=== PATIENT | male | born 1995 | race Caucasian/White ===

== ENCOUNTER 2025-01-19 07:15 | Emergency (ER) | payer OTHER, SELFPAY ==
--- NOTE | ~2025-01-19 | XR_ITS ---
Clinical Indication: Chest pain PA and lateral views of the chest: Comparison: None Findings: The lungs are clear, without evidence of focal consolidation or pleural effusion. Cardiome diastinal silhouette is within normal limits. Bones and soft tissues are unremarkable. Impression: Normal chest. Reviewed, dictated and finalized at location . Impression: Normal chest.
--- NOTE | 2025-01-19 07:18 | ECG_ITS ---
Test Date: 2025-01-19 07:27:45 Measurements Intervals [place] Rate: 65 P: 44 NV: 156 QRS: -31 QRSD: 115 T: -9 QT: 379 QTc: 396 Interpretive Statements SINUS RHYTHM LEFTWARD AXIS INCOMPLETE RIGHT BUNDLE BRANCH BLOCK BORDERLINE ECG No previous ECG available for comparison Electronically Signed On 01-19-2025 07:56:01 CDT by Toi Yancey M.D.
[2025-01-19 07:21] VITALS: BP 161/81; PULSE 73; RESP 20; TEMP 36.6; O2SAT 100
[2025-01-19] MEDS: ASPIRIN 81 MG CHEWABLE TABLET 324 MG PO (07:40)
[2025-01-19 07:44] LABS: Hematocrit 45.3 % (42.0-52.0); Hemoglobin 15.5 g/dL (14.0-18.0); Immature Granulocyte Percent A 0.2 % (0-0.5); Lymphocytes Absolute Auto 1.89 K/mm3 (0.9-3.2); Mean Corpuscular HGB Conc 34.2 g/dl (32-36); Mean Corpuscular Hemoglobin 30.8 pg (26-34); Mean Corpuscular Volume 89.9 fl (80-100); Nucleated Red Blood Cells Absolute Auto 0.000 K/mm3 (0.0-0.012); Nucleated Red Blood Cells Perc 0.0 % (0.0-0.2); Platelet Count Result 301 k/mm3 (150-375); Red Blood Count 5.04 M/mm3 (4.6-6.20); White Blood Count 5.5 K/mm3 (4.5-10.0)
--- OUTSIDE RECORDS SUMMARY | 2025-01-19 07:45 | XMS_ITS | Encounter Summary ---
Author Name [facility] [place] Organization [facility] [place] Address [address] [place] [address] Care Team Providers Care Aircraft Engine Dismantler Name Role Phone GREGORY HARTLEY Primary Care Provider Unavailabl MUKESH Lieberman Primary Care Provider Unavailab le Selected Encounter This section includes the information on record at [place] for the Encounter. Date/Time Encounter Type Encounter Description Reason Provider Source Jul 08, 2024 03:30 PM OFFICE O/P EST MOD 30 MIN PRIMARY CARE/MEDICINE ICD-10-CM Z72.0 Tobacco use JAKE,GLADYS S IHE Encounter Template Text not used by [place] Assessments - Encounter Diagnoses This section includes the primary and secondary diagnoses documented for the Encounter. Date/Time Primary/Secondary Diagnosis Diagnosis Name Provider Source Jul 08, 2024 04:33 PM PRIMARY Tobacco use JAKE,GLADYS S [facility] Jul 08, 2024 04:33 PM SECONDARY Cervicalgia JAKE,GLADYS S [facility] Jul 08, 2024 04:33 PM SECONDARY Chronic pain syndrome JAKE,GLADYS S [facility] Jul 08, 2024 04:33 PM SECONDARY Generalized anxiety disorder JAKE,GLADYS S [facility] Jul 08, 2024 04:33 PM SECONDARY Lumbago with sciatica, unspecified side JAKE,GLADYS S [facility] Jul 08, 2024 04:33 PM SECONDARY Morbid (severe) obesity due to excess calories GLADYS JOSEPH [facility] Jul 08, 2024 04:33 PM SECONDARY Obstructive sleep apnea (adult) (pediatric) GLADYS JOSEPH [facility] Jul 08, 2024 04:33 PM SECONDARY Pain in unspecified shoulder GLADYS JOSEPH [facility] Jul 08, 2024 04:33 PM SECONDARY Panic disorder [episodic paroxysmal anxiety] GLADYS JOSEPH [facility] Plan of Treatment: Future Appointments (+ 6 months) and Future Tests (+/- 45 days) The Plan of Treatment section includes future care activities for the [facility] [place] [facility] This section includes future appointments and future orders which are active, pending or scheduled. Future Appointments This section includes appointments that were scheduled to occur 6 months from the date of the Encounter, up to a maximum of 20 appointments. The data comes from all [facility] facilities. Appointment Date/Time Appointment Type Appointme nt Facility Name Jul 19, 2024 10:00 AM AMBULATORY - PSYCHIATRY [facility] Jul 20, 2024 08:00 AM AMBULATORY - PSYCHIATRY [facility] Aug 03, 2024 07:30 AM AMBULATORY - REHAB MEDICIN E [facility] Aug 13, 2024 09:30 AM AMBULATORY - REHAB MEDICIN E [facility] Aug 16, 2024 01:30 PM AMBULATORY - MEDICINE [facility] Sep 07, 2024 01:30 PM AMBULATORY - PSYCHIATRY [facility] Sep 09, 2024 03:00 PM AMBULATORY - REHAB MEDICIN E [facility] Sep 10, 2024 12:00 PM AMBULATORY - NONE [facility] November 26, 2024 09:30 AM AMBULATORY - PSYCHIATRY [facility] Vital Signs: All taken on the encounter date This section contains inpatient and outpatient Vital Signs collected on the date of the Encounter. Date/Time Temperature Pulse Blood Pressure Respiratory Rate SP02 Pain Height Weight Body Mass Index Source Jul 08, 2024 09:52 AM 98.1 73 133/82 16 99 2 229.7 37 [facility] Social History: Smoking Status (Most current) and Tobacco Use (All prior to encounter date) This section includes the most current, and the historical, smoking and tobacco- related health factors from the [place] facility where the Encounter took place. Current Smoking Status This section includes the most current smoking, or tobacco-related health factor, from the [place] facility where the Encounter took place. Date/Time Current Smoking Status Comment Facil ity May 30, 2022 01:30 PM VA-TOBACCO FORMER USER [facility] Tobacco Use History This section includes a history of the smoking, or tobacco-related health factors, that were collected on or before the date of the Encounter. The data comes from the [place] facility where the Encounter took place. Date/Time Smoking Status/Tobacco Use Comment F acility May 30, 2022 01:30 PM VA-TOBACCO QUIT 1 TO < 5 YRS [facility] Aug 20, 2019 09:00 AM VA-TOBACCO USE 1 TO < 5 YEARS [facility] Aug 20, 2019 09:00 AM VA-TOBACCO USE ADVICE [facility] Aug 20, 2019 09:00 AM VA-TOBACCO USE LAW REPORTER NO [facility] Aug 20, 2019 09:00 AM VA-TOBACCO USE MED NO [facility] Aug 20, 2019 09:00 AM VA-TOBACCO USE WI 30 MIN OF WAKEUP [facility] Aug 20, 2019 09:00 AM VA-TOBACCO USER EVERY DAY [facility] Radiology Reports: +/- 30 days of the encounter Radiology Reports For cases when an order for radiology services may have been completed prior to the date of the Encounter, the report list includes the Radiology Reports that were completed up to 30 days before dateof the Encounter. For cases when an order for radiology services may have been completed after the date of the Encounter, the report list also includes the Radiology Reports that were completed up to30 days after date of the Encounter. The data comes from all [place] treatment facilities. Date/Time Radiology Report Provider Source Jul 08, 2024 10:40 AM SPINE CERVICAL MIN 4 OR 5 VIEWS: REVA WISE GABKeysha [id number] -1995 M Exm Date: JUL 08, 2024@10:40 Req Phys: GLADYS JOSEPH Pat Loc: [facility] PCP (Req'g Loc) Img Loc: [facility] Service: Unknown [address] [id number] (Case [id number] COMPLETE) SPINE CERVICAL MIN 4 OR 5 VIEWS (RAD Detailed) CPT:30000 Reason for Study: cervicalgia Clinical History: Report Status: Verified Date Reported: JUL 08, 2024 Date Verified: JUL 08, 2024 Tax Analyst E-Sig:/ES/POPEYE MEREDITH Report: INDICATION: cervicalgia COMPARISON: None TECHNIQUE: Cervical spine 3 views Impression: C6 and 7 are not well evaluated on the lateral projections due to overlying structures. The lateral masses of C1 and C2 are grossly aligned. No abnormal thickening of the prevertebral soft tissues. Visualized vertebral body heights and intervertebral disc spaces are normal. Primary Interpreting Staff: POPEYE MEREDITH, RADIOLOGIST (Tax Analyst) /POPEYE PARMAR [facility] Jul 08, 2024 10:40 AM SPINE LUMBOSACRAL 2 OR 3 VIEWS: REVA WISE [id number] -1995 M Exm Date: JUL 08, 2024@10:40 Req Phys: GLADYS JOSEPH Pat Loc: [facility] PCP (Req'g Loc) Img Loc: [facility] Service: Unknown [address] [id number] (Case [id number] COMPLETE) SPINE LUMBOSACRAL 2 OR 3 VIEWS (RAD Detailed) CPT:89723 Reason for Study: lumbago Clinical History: Report Status: Verified Date Reported: JUL 08, 2024 Date Verified: JUL 08, 2024 Tax Analyst E-Sig:/ES/POPEYE MEREDITH Report: INDICATION: lumbago COMPARISON: TECHNIQUE: Lumbar spine 3 views Impression: 5 nonrib-bearing bearing vertebral bodies. Lowest fully formed intervertebral disc space is designated as L5-S1. Normal vertebral body heights. Mild to moderate disc space narrowing at the T12/L1 and to lesser extent at the L5-S1. Mild lower lumbar facet arthrosis. No traumatic subluxation of the posterior elements. Primary Interpreting Staff: POPEYE MEREDITH, RADIOLOGIST (Tax Analyst) /POPEYE PARMAR [facility] Jul 08, 2024 10:40 AM SHOULDER,LEFT,2 OR MORE [facility]IEWS: [facility] [id number] -1995 M Exm Date: JUL 08, 2024@10:40 Req Phys: GLADYS JOSEPH S Pat Loc: [facility] PCP (Req'g Loc) Img Loc: [facility] Service: [address] [id number] (Case [id number] COMPLETE) SHOULDER,LEFT,2 OR MORE VIEWS (RAD Detailed) CPT:43490 Reason for Study: bilateral shoulder pain Clinical History: Report Status: Verified Date Reported: JUL 08, 2024 Date Verified: JUL 08, 2024 Tax Analyst E-Sig:/ES/POPEYE MEREDITH Report: , [id number] INDICATION: bilateral shoulder pain COMPARISON: None TECHNIQUE: Bilateral shoulder multiple views Impression: No acute displaced fracture. No significant malalignment. Primary Interpreting Staff: POPEYE MEREDITH RADIOLOGIST (Tax Analyst) /POPEYE PARMAR [facility] Jul 08, 2024 10:40 AM SHOULDER,RIGHT,2 O R MORE VIEWS: [facility] [id number] -1995 M Exm Date: JUL 08, 2024@10:40 Req Phys: GLADYS JOSEPH S Pat Loc: [facility]4 PCP (Req'g Loc) Img Loc: - RADIOLOGY Service: [address] [id number] (Case [id number] COMPLETE) SHOULDER,RIGHT,2 OR MORE VIEWS (RAD Detailed) CPT:04832 Proc Modifiers : RIGHT Reason for Study: bilateral shoulder pain Clinical History: Report Status: Verified Date Reported: JUL 08, 2024 Date Verified: JUL 08, 2024 Tax Analyst E-Sig:/ES/POPEYE MEREDITH Report: , [id number] INDICATION: bilateral shoulder pain COMPARISON: None TECHNIQUE: Bilateral shoulder multiple views Impression: No acute displaced fracture. No significant malalignment. Primary Interpreting Staff: POPEYE MEREDITH, RADIOLOGIST (Tax Analyst) /POPEYE PARMAR [facility] Encounter Notes: All associated encounter notes This section contains the clinical notes associated to the Encounter. Date/Time Encounter Note(s) Provider Source Jul 20, 2024 08:39 AM PHYSICIAN LETTERS: LOCAL TITLE: TEST RESULT GENERAL LETTER [facility] STANDARD TITLE: PHYSICIAN LETTERS DATE OF NOTE: JUL 20, 2024@08:39 ENTRY DATE: JUL 20, 2024@08:39:35 AUTHOR: GLADYS JSOEPH COSIGNER: URGENCY: STATUS: COMPLETED [facility] [address] [place] [address] JUL 20, 2024 REVA WISE [address] [place], [place] [address] Dear Reva Wise, I would like to update you on your recent test results. OTHER TEST RESULTS RADIOLOGY (NON-INVASIVE TEST RESULTS): xrays Right shoulder Impression: No acute displaced fracture. No significant malalignment. Left shoulder Impression: No acute displaced fracture. No significant malalignment. Lumbar (lower) spine Impression: 5 nonrib-bearing bearing vertebral bodies. Lowest fully formed intervertebral disc space is designated as L5-S1. Normal vertebral body heights. Mild to moderate disc space narrowing at the T12/L1 and to lesser extent at the L5-S1. Mild lower lumbar facet arthrosis. No traumatic subluxation of the posterior elements. Cervical (neck) spine Impression: C6 and 7 are not well evaluated on the lateral projections due to overlying structures. The lateral masses of C1 and C2 are grossly aligned. No abnormal thickening of the prevertebral soft tissues. Visualized vertebral body heights and intervertebral disc spaces are normal. It was a pleasure seeing you in the office. Your shoulder xrays were unremarkable and showed no obvious abnormalities. Your cervical and lumbar xrays show some arthritis and degeneration of the disc spaces in some areas. I recommend a round of physical therapy to see if your symptoms improve. For pain, please note that ergonomics can definitely trigger ongoing pain and if consistent, the inflammation may persist. PT can help with this as well as stretching and strengthening exercises. Lidocaine patches, heat/ice to area as well as alternating tylenol and ibuprofen. Topical products such as tiger balm and voltaren gel are also beneficial. Please let me know if you are interested in a referral to physical therapy. If your pain persists despite treatment, please do not hesitate to reach out. If you have a question, please do not hesitate to reach out via [employer] or telephone. We look forward to seeing you at your next office visit. FUTURE APPOINTMENTS: 08/16/2024 13:30 [facility] PACT E4 PCP Sincerely, GLADYS JOSEPH NURSE PRACTITIONER REVA WISE MELISSA S [facility] Jul 08, 2024 10:09 AM PRIMARY CARE NOTE: LOCAL TITLE: PRIMARY CARE PROVIDER ESTABLISHED VISIT [facility] STANDARD TITLE: PRIMARY CARE NOTE DATE OF NOTE: JUL 08, 2024@10:09 ENTRY DATE: JUL 08, 2024@10:09:42 AUTHOR: GLADYS JOSEPH EXP COSIGNER: URGENCY: STATUS: COMPLETED ESTABLISHED PATIENT QSHC-QS-XHBD: REASON FOR VISIT/CHIEF COMPLAINT: VANDANA f/u, nerve pain, anxiety attacks, bilateral shoulder pain, pain along collar bone, nerve pain in leg HPI: [place] is a 28 year old WHITE MALE who presents today for routine visit. PMHx: FU for tobacco use; tinnitus; LBP; chronic pain; eczema; panic disorder tobacco use quit low back pain with left radiculpathy denies loss of bladder and bowel control, and saddle parasthesia OTC analgesia - IBU and ice sustained work place injury 08/2023, went through workmans comp. he went through workmans comp pain persists neck pain chronic, exacerbated ibuprofen at home declined PT shoulder pain chronic, exacerbated ibuprofen at home declined PT left knee pain feels locking and loss of ROM injury while AD does not want to do PT wears OTC knee brace IBU at home VANDANA confirmed by sleep study hasn't rec cpap depression/anxiety/panic denies SI paroxetine f/b MH obesity BMI 33.0 WHAT IS YOUR GOAL FOR TODAY? as above SOURCE(S) OF HISTORY: Patient PAST MEDICAL HISTORY: 1) Tobacco use 2) Chronic pain syndrome 3) Low back pain 4) Bilateral knee pain 5) Pain of left ankle joint 6) Tinnitus 7) Eczema 8) Sinusitis 9) Cough 10) High risk sexual behavior 11) Panic attack 12) Murmur 13) Carotid bruit 14) Depressive disorder 15) Divorce proceedings pending 16) Snoring 17) Obesity 18) Anxiety 19) Vitamin D Deficiency ([facility] [id number]) 20) Hyperlipidemia ALLERGIES: Life Sustaining Treatment Orders ALLERGY REVIEW: Allergy list reviewed and remains current. RXAE - Active/Exp Opt Meds 1) CHOLECALCIF 50MCG (D3-2,000UNIT) TAB ACTIVE TAKE ONE TABLET BY MOUTH ONCE A DAY FOR VITAMIN D DEFICIENCY MEDICATION RECONCILIATION: I have reviewed the patient's medication list with the patient and/or his/her care-retail business development manager. Handwritten corrections, additions and/or deletions were made to the list. Corrected Outpatient Medication List was provided to the patient/caregiver. DATA REVIEW: SODIUM 140 mEq/L 10/14/2023 15:47 POTASSIUM 4.1 mEq/L 10/14/2023 15:47 CHLORIDE 104 mEq/L 10/14/2023 15:47 UREA NITROGEN 22.5 mg/dL 10/14/2023 15:47 CREATININE 1.04 mg/dL 10/14/2023 15:47 CALCIUM 9.4 mg/dL 10/14/2023 15:47 PROTEIN 7.4 g/dL 10/14/2023 15:47 ALBUMIN 4.4 g/dL 10/14/2023 15:47 ALKALINE PHOSPHATASE 54 U/L 10/14/2023 15:47 ALT/SGPT 31 U/L 10/14/2023 15:47 AST/SGOT 33 U/L 10/14/2023 15:47 TOTAL BILIRUBIN 0.3 mg/dL 10/14/2023 15:47 CARBON DIOXIDE 27 mEq/L 10/14/2023 15:47 GLUCOSE 83 mg/dL 10/14/2023 15:47 EGFR (CKD-EPI 2020) 100.93 10/14/2023 15:47 WBC 9.1 10*3/uL 10/14/2023 15:47 RBC 4.79 10*6/uL 10/14/2023 15:47 HGB 15.0 g/dL 10/14/2023 15:47 HCT 42.7 % 10/14/2023 15:47 MCV 89.1 fL 10/14/2023 15:47 MCH 31.3 pg 10/14/2023 15:47 MCHC 35.1 g/dL 10/14/2023 15:47 RDW 11.6 L % 10/14/2023 15:47 PLT 284 10*3/uL 10/14/2023 15:47 MPV 10.4 fL 10/14/2023 15:47 NEUTROPHILS, AUTO % 65 % 10/14/2023 15:47 LYMPHOCYTES, AUTO % 26 % 10/14/2023 15:47 MONOCYTES, AUTO % 5 % 10/14/2023 15:47 EOSINOPHILS, AUTO % 3 % 10/14/2023 15:47 BASOPHILS, AUTO % 1 % 10/14/2023 15:47 NEUTROPHILS, ABSOLUTE 5.88 10*3/uL 10/14/2023 15:47 LYMPHOCYTES, ABSOLUTE 2.38 10*3/uL 10/14/2023 15:47 MONOCYTES, ABSOLUTE 0.47 10*3/uL 10/14/2023 15:47 EOSINOPHILS, ABSOLUTE 0.24 10*3/uL 10/14/2023 15:47 BASOPHILS, ABSOLUTE 0.07 10*3/uL 10/14/2023 15:47 TRIGLYCERIDE 209 H mg/dL 10/14/2023 15:47 CHOLESTEROL 225 H mg/dL 10/14/2023 15:47 HDL(New) 48 mg/dL 10/14/2023 15:47 CALCULATED LDL 135 mg/dL 10/14/2023 15:47 TSH 1.093 uIU/mL 10/14/2023 15:47 VITAMIN D, 25-HYDROXY 15.9 L ng/mL 10/14/2023 15:47 SLT - Lab Tests Selected Collection DT Specimen Test Name Result Units Ref Range 10/14/2023 15:47 BLOOD HGA1C 5.3 % 4.0 - 6.0 05/30/2022 15:15 BLOOD HGA1C 5.3 % 4.0 - 6.0 12/19/2020 12:27 BLOOD HGA1C 5.2 % 4.0 - 6.0 No PSA EO data found HbA1c No data available for: HGA1C Result: Acceptable Follow-up Action: Data results reviewed with patient and/or caregiver. Review of Systems: General: Denies fever, chills, weight loss, weight gain ENT: Denies sore throat, nasal discharge, tinnitus, loss of hearing Eye: Denies changes in vision, double vision Cardiovascular- Denies chest pain, palpitations, dizziness Respiratory: Denies SOB, cough, hemoptysis Abd/GI: Denies nausea, vomiting, diarrhea, constipation, pain MSK/Ext: + joint pain, -trauma, +stiffness, -edema /ESTATE PLANNING ATTORNEY: Denies frequency, urgency, burning, odor, discharge Hemo/lymph: Denies easy bruising, fatigue, swollen nodes Endo: Denies excess thirst, hunger, urination Psych: Denies depression, anxiety, nightmares, insomnia Neuro: Denies headaches, tremors, seizures, head injury, neuropathy Skin: Denies laceration/abrasion, rash, itching, insect bites SMOKING STATUS: VSD - Detailed Vitals Date Vital Measurement Qualifiers 07/08/2024 09:52 Temp F (C) 98.1 (36.7) Pulse 73 Respir 16 BP 133/82 Wt lbs (kg)[BMI] 229.7 (104.19)[37*] Pain 2 POx (L/Min)(%) 99 Physical Exam: ENT: Pharynx clear, TM's clear EYE: PERRLA Cardiovascular: RRR, no murmurs, no carotid bruits, no edema Respiratory: Lungs CTAB Abd/GI: Abdomen soft, non-tender, non-distended, no masses or guarding Extremities: decreased ROM, no edema /ESTATE PLANNING ATTORNEY: No CVA or S/P tenderness Hemo/lymph: no adenopathy, excessive bruising Endo: Thyroid without palpable nodules, no excess hair growth Psych: mood and affect appropriate Neuro: Alert and oriented, CN2-12 grossly intact Skin: Clear and intact Assessment and Plan: # tobacco use - controlled - cigarette smoking - he has quit - LDCT at age 51 - AAA screen at age 66 # lumbar radiculopathy - controlled - reporting radiculopathy s/p workplace injury - discussed options for PT, imaging - declines PT - he has seen workmans comp - OTC analgesia - xray ordered - Rx for flexeril, medrol dose pack, ibuprofen and gabapentin # Cervicalgia - chronic, worsening - OTC analgesia - xray ordered - Rx for flexeril, medrol dose pack, ibuprofen and gabapentin # left knee pain - controlled - update xray - declined RX and PT - knee sleeve # bilateral shoulder pain - chronic, worsening - declines pt - xray ordered - Rx for flexeril, medrol dose pack, ibuprofen # VANDANA - results in [facility] post overnight sleep study - referral to RT for cpap supplies - referral to sleep specialist for f/u on sleep study and cpap initiation # depression/anxiety/panic - uncontrolled - denies SI/HI - RX: paroxetine - given crisis line number - f/b # obesity - uncontrolled - encouraged clinical sample worker and/or weight loss MOVE program - Encouraged implementing exercise regimen HEALTH MAINTENANCE: CRC screen - denies fam hx age 45 - 75 for average risk PROST. SPECIFIC AG.(PB-STL) 0.473 ng/mL 05/30/2022 15:15 PROST. SPECIFIC AG.(PB-STL) 0.483 ng/mL 12/19/2020 12:27 age 45 - 75 for average risk PNEUMOCOCCAL POLYSACCHARIDE PPV23 12/19/2020 [facility]* TDAP 12/19/2020 [facility]* Return to clinic 12 months and sooner PRN SUMMARY STATEMENT: Plan of care has been discussed with including expected therapeutic benefits and potential side effects of prescribed medication and treatments. verbalizes understanding and is in agreement with the plan of care. Patient was instructed to keep all scheduled appointments and contact guitar repair technician for any additional problems. /es/ GLADYS JOSEPH NURSE PRACTITIONER Signed: 07/08/2024 16:33 GLADYS JOSEPH [facility] Jul 08, 2024 09:52 AM NURSING NOTE: LOCAL TITLE: V15 PACT FACE TO FACE NOTE [facility] STANDARD TITLE: NURSING NOTE DATE OF NOTE: JUL 08, 2024@09:52 ENTRY DATE: JUL 08, 2024@09:52:53 AUTHOR: ALEJANDRA GONZALEZIGNER: URGENCY: STATUS: COMPLETED Provider Visit:Pt.'s appt was at 3:30 today, but thought it was at 9:30 this morning. Pt. arrived at 9:30- will work in this am. Patient Identifiers : Full Name Date of Reason for visit: Established Follow-Up Mode of Arrival: Ambulatory Allergy Review: Patient has answered NKA Allergy list reviewed and remains current. Recent Vital Signs: Temperature: 98.1 F [36.7 C] (07/08/2024 09:52) Pulse: 73 (07/08/2024 09:52) Respiration: 16 (07/08/2024 09:52) B/P: 133/82 (07/08/2024 09:52) Pain: 2 (07/08/2024 09:52) Wt: 229.7 lb [104.19 kg] (07/08/2024 09:52) Ht: 66 in [167.6 cm] (08/20/2019 09:01) BMI: 37.2 POX: 99% (07/08/2024 09:52) Would you like to discuss any personal problem, family problem, alcohol use, drug use, or a mental or emotional illness? No Contact provided Primary Care phone number and encouraged to call if any questions or concerns. Review that after hours nurse line [phone] and emergency room are available 03/02 for patient use. Contact verbalized good understanding. Suicide Screen - V: C-SSRS Screening Powell-Suicide Severity Rating Scale (C-SSRS Screener) 1. Over the past month, have you wished you were or wished you could go to sleep and not wake up? No 2. Over the past month, have you had any actual thoughts of killing yourself? No 3. Over the past month, have you been thinking about how you might do this? Response not required due to responses to other questions. 4. Over the past month, have you had these thoughts and had some intention of acting on them? Response not required due to responses to other questions. 5. Over the past month, have you started to work out or worked out the details of how to kill yourself? Response not required due to responses to other questions. 6. If yes, at any time in the past month did you intend to carry out this plan? Response not required due to responses to other questions. 7. In your lifetime, have you ever done anything, started to do anything, or prepared to do anything to end your life (for example, collected pills, obtained a gun, gave away valuables, went to the roof but didn't jump)? No 8. If YES, was this within the past 3 months? Response not required due to responses to other questions. Learning Assessment: - * This patient's learning ABILITIES, BARRIERS to learning, CULTURAL and CAODAISM beliefs, and learning PREFERENCES were assessed. Following are findings of note: Patient reads well. Patient has the following hearing/auditory barrier(s) to consider when teaching: No hearing barrier identified. Patient has the following speech barrier to consider when teaching: No speech barrier identified. LANGUAGE Patient reports that Malawian is preferred language for healthcare. Patient has the following language barrier to consider when teaching: No language barrier has been identified. Patient has the following vision barrier(s) to consider when teaching: No vision barrier has been identified. Patient has the following dexterity/mobility barrier(s) to consider when teaching: No dexterity/mobility barrier has been identified. Patient has the following cognitive/memory barrier(s) to consider when teaching: No cognitive/memory barrier has been identified. Patient has the following emotional/psychological barrier(s) to consider when teaching: No emotional/psychosocial barrier has been identified. Patient has the following social support deficit(s) to consider when teaching: No social support issues have been identified., The following barrier has been identified.lives with girlfriend Patient reports learning preference is to refer to handouts. Patient reports learning preference is attending one-to-one or group demonstrations. COVID-19 Immunization - L,N,P,PH,U: Refused Pfizer Monovalent COVID-19 vaccine Immunization: COVID-19 (PFIZER), MRNA, LNP-S, PF, VERITO-SUCROSE, 30 MCG/0.3 ML (AGES 12+ YEARS) Refusal Reason: PATIENT DECISION Patient refuses all immunization(s) in the COVID-19 group Date Documented: 07/08/24 09:57 Influenza Immunization - L,N,P,PH,U: Deferral / Refusal The patient declines to receive the recommended dose of seasonal influenza vaccine. Immunization: INFLUENZA, UNSPECIFIED FORMULATION Refusal Reason: PATIENT DECISION Patient refuses all immunization(s) in the FLU group Date Documented: 07/08/24 09:57 Pneumococcal Conjugate Vaccine (PCV15/PCV20) - L,N,P,PH,U: Refuses PCV vaccine Immunization: PNEUMOCOCCAL CONJUGATE, UNSPECIFIED FORMULATION Refusal Reason: PATIENT DECISION Patient refuses all immunization(s) in the PneumoPCV group Date Documented: 07/08/24 09:58 /naag/ ALEJANDRA GONZALEZ LPN LICENSED PRACTICAL NURSE Signed: 07/08/2024 09:58 ALEJANDRA GONZALEZ [facility]
--- OUTSIDE RECORDS SUMMARY | 2025-01-19 07:45 | XMS_ITS | Encounter Summary ---
Author Name [facility] [place] [facility] [place] Address [address] [place] [address] Care Team Providers Care Bingo Usher Name Role Phone GREGORY HARTLEY Primary Care Provider Unavailabl MUKESH Lieberman Primary Care Provider Unavailab le Selected Encounter This section includes the information on record at [place] for the Encounter. Date/Time Encounter Type Encounter Description Reason Pro vider Source Apr 08, 2024 08:37 AM Outpatient Encounter COMMUNITY CARE CONSULT IHE Encounter Template Text not used by [place] Plan of Treatment: Future Appointments (+ 6 months) and Future Tests (+/- 45 days) The Plan of Treatment section includes future care activities for the patient from all [place] treatmentfacilities. This section includes future appointments and future orders which are active, pending or scheduled. Future Appointments This section includes appointments that were scheduled to occur 6 months from the date of the Encounter, up to a maximum of 20 appointments. The data comes from all [place] treatment facilities. Appointment Date/Time Appointment Type Appointme nt Facility Name Apr 12, 2024 01:00 PM AMBULATORY - NONE [facility] Apr 19, 2024 03:00 PM AMBULATORY - MEDICINE [facility] Apr 21, 2024 08:30 AM AMBULATORY - NONE [facility] Apr 23, 2024 11:00 AM AMBULATORY - MEDICINE [facility] Apr 30, 2024 09:00 AM AMBULATORY - PS[facility]CHIATRY [facility] Jul 08, 2024 03:30 PM AMBULATORY - MEDICINE [facility] Jul 19, 2024 10:00 AM AMBULATORY - PSYCHIATRY [facility] Jul 20, 2024 08:00 AM AMBULATORY - PSYCHIATRY [facility] Aug 03, 2024 07:30 AM AMBULATORY - REHAB MEDICIN E [facility] Aug 13, 2024 09:30 AM AMBULATORY - REHAB MEDICIN E [facility] Aug 16, 2024 01:30 PM AMBULATORY - MEDICINE [facility] Sep 07, 2024 01:30 PM AMBULATORY - PSYCHIATRY [facility] Sep 09, 2024 03:00 PM [facility] Sep 10, 2024 12:00 PM AMBULATORY - NONE [facility] Active, Pending, and Scheduled Orders This section includes a listing of several types of active, pending, and scheduled orders, including clinic medications orders, diagnostic test orders, procedure orders and consult orders; where the start date of the order is 45 days before the date of the Encounter or 45 days after the date of theEncounter. The data comes from all [place] treatment facilities. Test Date/Time Test Type Test Details Facility Name Mar 08, 2024 12:00 AM Laboratory - Chemi stry Order HEP C AB, TOTAL BLOOD in GOLD TOP TUBE SERUM SP ONCE [facility] Social History: Smoking Status (Most current) and Tobacco Use (All prior to encounter date) This section includes the most current, and the historical, smoking and tobacco- related health factors from the [place] facility where the Encounter took place. Current Smoking Status This section includes the most current smoking, or tobacco-related health factor, from the [place] facility where the Encounter took place. Date/Time Current Smoking Status Comment Gómez butler Mar 03, 2024 02:28 PM VA-TOBACCO NEVER USED [facility] Encounter Notes: All associated encounter notes This section contains the clinical notes associated to the Encounter. Date/Time Encounter Note(s) Provider Source Apr 08, 2024 08:37 AM LETTERS: LOCAL TITLE: COMMUNITY CARE-14 DAY LETTER STANDARD TITLE: LETTERS DATE OF NOTE: APR 08, 2024@08:37 ENTRY DATE: APR 08, 2024@08:37:36 AUTHOR: NITA TENORIO EXP COSIGNER: URGENCY: STATUS: COMPLETED Mar Dear REVA WISE We recently received a referral from your health care provider for Non-VA Care consultation for UROLOGY SURG. We have attempted to contact you by telephone unsuccessfully. If you would like to take advantage of this referral please, call the following number and we will be happy to schedule an appointment for you. If we don't receive a response within 14 days we will discontinue this request and you will need to follow-up with your Doctor to reopen this request. Thank you, NITA TENORIO Title:ADVANCED MSA Phone:[phone] Department [facility] [address] [address] NITA TENORIO [facility]
--- OUTSIDE RECORDS SUMMARY | 2025-01-19 07:45 | XMS_ITS | Encounter Summary ---
Author Name [facility] of [facility] [place] Organization [facility] [place] Address [address] [place] [address] Care Team Providers Care Color Developer Name Role Phone GREGORY HARTLEY Primary Care Provider Unavailabl MUKESH Lieberman Primary Care Provider Unavailab le Selected Encounter This section includes the information on record at [place] for the Encounter. Date/Time Encounter Type Encounter Description Reason Provider Source Apr 15, 2024 11:50 AM OFF/OP EST NOVEMBER X REQ PHY/QHP PRIMARY CARE/MEDICINE ICD-10-CM R10.9 Unspecified abdominal pain TIM AGUIAR IHE Encounter Template Text not used by CT Assessments - Encounter Diagnoses This section includes the primary and secondary diagnoses documented for the Encounter. Date/Time Primary/Secondary Diagnosis Diagnosis Name Provider Source Apr 15, 2024 12:03 PM PRIMARY Unspecified abdominal pain GIANNI AGUIAR [facility] Apr 15, 2024 12:03 PM SECONDARY Counseling, unspecified [facility]NI AGUIAR [facility] Apr 15, 2024 12:03 PM SECONDARY Encounter for examination and observation for unsp reason GIANNI AGUIAR [facility] Plan of Treatment: Future Appointments (+ 6 months) and Future Tests (+/- 45 days) The Plan of Treatment section includes future care activities for the patient from all [place] treatment[place]ilities. This section includes future appointments and future orders which are active, pending or scheduled. Future Appointments This section includes appointments that were scheduled to occur 6 months from the date of the Encounter, up to a maximum of 20 appointments. The data comes from all [facility]. Appointment Date/Time Appointment Type Appointme nt Facility Name Apr 19, 2024 03:00 PM [facility]ORY [facility] Apr 21, 2024 08:30 AM AM[facility]ATORY - NONE [facility] Apr 23, 2024 11:00 AM [facility] Apr 30, 2024 09:00 AM [facility] Jul 08, 2024 03:30 PM [facility]ULATORY - MEDICINE [facility] Jul 19, 2024 10:00 AM AMBULATORY - PSYCHIATRY [facility] Jul 20, 2024 08:00 AM AMBULATORY - PSYCHIATRY [facility] Aug 03, 2024 07:30 AM AMBULATORY - REHAB MEDICIN E [facility] Aug 13, 2024 09:30 AM AMBULATORY - REHAB MEDICIN E [facility] Aug 16, 2024 01:30 PM AMBULATORY - MEDICINE [facility] Sep 07, 2024 01:30 PM AMBULATORY - PSYCHIATRY [facility] Sep 09, 2024 03:00 PM AMBULATORY - REHAB MEDICIN E [facility] Sep 10, 2024 12:00 PM AMBULATORY - NONE [facility] Active, Pending, and Scheduled Orders This section includes a listing of several types of active, pending, and scheduled orders, including clinic medications orders, diagnostic test orders, procedure orders and consult orders; where the start date of the order is 45 days before the date of the Encounter or 45 days after the date of theEncounter. The data comes from all [facility]. Test Date/Time Test Type Test Details Facility Name Mar 08, 2024 12:00 AM Laboratory - Chemi stry Order HEP C AB, TOTAL BLOOD in GOLD TOP TUBE SERUM SP [facility] Vital Signs: All taken on the encounter date This section contains inpatient and outpatient Vital Signs collected on the date of the Encounter. Date/Time Temperature Pulse Blood Pressure Respiratory Rate SP02 Pain Height Weight Body Mass Index Source Apr 15, 2024 11:54 AM 99.4 99 130/75 18 6 [facility] Social History: Smoking Status (Most current) and Tobacco Use (All prior to encounter date) This section includes the most current, and the historical, smoking and tobacco- related health factors from the [place] facility where the Encounter took place. Current Smoking Status This section includes the most current smoking, or tobacco-related health factor, from the [place] facility where the Encounter took place. Date/Time Current Smoking Status Comment Facil ity Jul 29, 2019 08:45 AM VA-TOBACCO USE ADMINISTRATIVE SUPPORT ASSISTANT YES [facility] Tobacco Use History This section includes a history of the smoking, or tobacco-related health factors, that were collected on or before the date of the Encounter. The data comes from the [place] facility where the Encounter took place. Date/Time Smoking Status/Tobacco Use Comment F acility Jul 29, 2019 08:45 AM VA-TOBACCO USE ADVICE [facility] Jul 29, 2019 08:45 AM VA-TOBACCO USE ADMINISTRATIVE SUPPORT ASSISTANT YES [facility] Jul 29, 2019 08:45 AM VA-TOBACCO USE MED NOTIFY PROVIDER Mehrdad Gu [facility] Jul 29, 2019 08:45 AM VA-TOBACCO USE WI 30 MIN OF WAKEUP [facility] Jul 29, 2019 08:45 AM VA-TOBACCO USER EVERY DAY [facility] Encounter Notes: All associated encounter notes This section contains the clinical notes associated to the Encounter. Date/Time Encounter Note(s) Provider Source Apr 15, 2024 11:50 AM PRIMARY CARE NURSI NAVDEEP NOTE: LOCAL TITLE: PRIMARY CARE RN SCREENING NOTE STANDARD TITLE: PRIMARY CARE NURSING NOTE DATE OF NOTE: APR 15, 2024@11:50 ENTRY DATE: APR 15, 2024@11:52:19 AUTHOR: GIANNI AGUIAR COSIGNER: URGENCY: STATUS: COMPLETED VISIT TYPE: In person CONTACT INFO Patient address/phone number verified or reported to clerical and office support workers for correction. Today's visit is at patient's assigned primary care facility. NURSING ASSESSMENT: Patient REVA WISE is a 28yo MALE. *REASON FOR VISIT (chief complaint): SYMPTOMS Acute problem Onset/Circumstances: 2 days ago ate a burrito Location/radiation: devloped pain to abdomen Duration: 2 days Character/Associated symptoms: diarrhea, liquid stool Aggravating/Alleviating Factors: History of IBS Remedies tried at home: Gas -x increased fluids gatoraide Treatments prescribed in past: none *FOCUSED CLINICAL OBSERVATION Temperature: 99.4 F (37.4 C) Pulse: 99 Respirations: 18 Blood Pressure: 130/75 Pain Score: 6 Patient's pain level today is TOLERABLE. Pt/caregiver to inform Provider or TeleCare ( ) if pain becomes problematic. Is the pain related to today's visit? Yes Plan: Advised pt. to seek urgent/emergent care to have pain addressed today. advised due to abdomen pain low grade fever history of IBS Pulse Ox: 99 on Room Air GENERAL APPEARANCE in no acute distress, alert, cooperative, well nourished, responds appropriately to questions, hygiene adequate, speech appropriate, clothing clean, appropriate SKIN: Normal: warm, dry and intact. Color appropriate. Moist mucous membranes., Clammy EYES: Eye structures normal with clear conjunctiva, white sclera, no swelling, discharge or lesions (Please describe) THORAX/LUNGS: Unlabored respirations Lung sounds: RUL clear RML clear RLL clear BRIDGETTE clear LLL clear CARDIOVASCULAR: Apical heart rate (bpm):99 ABDOMEN: normal active bowel sounds, soft, non-tender PLAN/INTERVENTIONS: Increased fluids BRAT diet Seek emergent care for worsening abdomen pain as radiology services not available in clinic for assessment. given ER notification number for reporting PATIENT/CAREGIVER EDUCATION Provided education regarding: Management of: fluid volume deficit, pain Learner understood education provided. RETURN PRECAUTIONS Patient informed to call the 24-hour Nurse Triage Line ( ) if experiencing worsening of symptoms. Patient given information on urgent care, and Care in the Community ([facility]) resources Patient educated on Veterans Crisis Line ( , press 1) Patient informed to call 911 or go to the nearest Emergency Room if experiencing any severe medical emergency (e.g., possible stroke, chest pain, extreme shortness of breath etc.) *EVALUATION/DISPOSITION Recommendation/discussed with: Urgent Care/ emergent care Agree Comment: [place] recommended community care due to abdomen pain /es/ GIANNI BARRON CONSERVATION POLICY ANALYST Signed: 04/15/2024 12:03 Receipt Acknowledged By: 04/15/2024 12:48 /es/ URIEL SMILEY MD ATTENDING PHYSICIAN GIANNI AGUIAR NILAM
--- OUTSIDE RECORDS SUMMARY | 2025-01-19 07:45 | XMS_ITS | Encounter Summary ---
Author Name [facility] [place] Organization [facility] [place] Address [address] [place] [address] Care Team Providers Care Home Lending Officer Name Role Phone GREGORY HARTLEY Primary Care Provider UnavailMUKESH Dutta Primary Care Provider Unavail le Selected Encounter This section includes the information on record at [place] for the Encounter. Date/Time Encounter Type Encounter Description Reason Provider Source Jul 26, 2024 10:16 AM TARGETED CASE MANAGEMENT ADMIN PAT ACTIVTIES (MASNONCT) MAYELIN POLLARD Encounter Template Text not used by [place] Plan of Treatment: Future Appointments (+ 6 months) and Future Tests (+/- 45 days) The Plan of Treatment section includes future care activities for the patient from all [place] treatmentfacilities. This section includes future appointments and future orders which are active, pending or scheduled. Future Appointments This section includes appointments that were scheduled to occur 6 months from the date of the Encounter, up to a maximum of 20 appointments. The data comes from all [place] treatment facilities. Appointment Date/Time Appointment Type Appointme nt Facility Name Aug 03, 2024 07:30 AM AMBULATORY - [facility]AB [facility]IC[facility] Aug 13, 2024 09:30 AM AMBULATORY - RE[facility]AB [facility]IC[facility] Aug 16, 2024 01:30 PM AMBULATORY - MEDICINE [facility] Sep 07, 2024 01:30 PM AMBULATORY - PSYCHIATRY [facility] Sep 09, 2024 03:00 PM AMBULATORY - REHAB MEDICIN E [facility] Sep 10, 2024 12:00 PM AMBULATORY - NONE [facility] November 26, 2024 09:30 AM AMBULATORY - PSYCHIATRY [facility] Social History: Smoking Status (Most current) and Tobacco Use (All prior to encounter date) This section includes the most current, and the historical, smoking and tobacco- related health factors from the [place] facility where the Encounter took place. Current Smoking Status This section includes the most current smoking, or tobacco-related health factor, from the [place] facility where the Encounter took place. Date/Time Current Smoking Status Comment Facil ity Sep 29, 2023 03:27 PM VA-TOBACCO QUIT 1 TO < 5 YRS [facility] Tobacco Use History This section includes a history of the smoking, or tobacco-related health factors, that were collected on or before the date of the Encounter. The data comes from the [place] facility where the Encounter took place. Date/Time Smoking Status/Tobacco Use Comment F acility Sep 29, 2023 03:27 PM VA-TOBACCO QUIT 1 TO < 5 YRS [facility] Dec 15, 2020 12:10 PM VA-TOBACCO FORMER USER [facility] Dec 15, 2020 12:10 PM VA-TOBACCO QUIT 1 TO < 5 YRS [facility] Radiology Reports: +/- 30 days of the [...] the Encounter. The data comes from all [place] treatment facilities. Date/Time Radiology Report Provider Source Jul 08, 2024 10:40 AM SPINE CERVICAL MIN 4 OR 5 VIEWS: REVA WISE [id number] -1995 M Exm Date: JUL 08, 2024@10:40 Req Phys: GLADYS JOSEPH Pat Loc: [facility] E4 PCP (Req'g Loc) Img Loc: [facility] Service: Unknown [address] [id number] (Case [id number] COMPLETE) SPINE CERVICAL MIN 4 OR 5 VIEWS (RAD Detailed) CPT:35132 Reason for Study: cervicalgia Clinical History: Report Status: Verified Date Reported: JUL 08, 2024 Date Verified: JUL 08, 2024 Basting Marker E-Sig:/ES/POPEYE MEREDITH Report: INDICATION: cervicalgia COMPARISON: None TECHNIQUE: Cervical spine 3 views Impression: C6 and 7 are not well evaluated on the lateral projections due to overlying structures. The lateral masses of C1 and C2 are grossly aligned. No abnormal thickening of the prevertebral soft tissues. Visualized vertebral body heights and intervertebral disc spaces are normal. Primary Interpreting Staff: POPEYE MEREDITH, RADIOLOGIST (Basting Marker) /POPEYE PARMAR [facility] Jul 08, 2024 10:40 AM SPINE LUMBOSACRAL 2 OR 3 VIEWS: [facility]ISE [facility] [id number] -1995 M Exm Date: JUL 08, 2024@10:40 Req Phys: GLADYS JOSEPH Pat Loc: [facility] E4 PCP (Req'g Loc) Img Loc: [facility] Service: Unknown [address] [address] (Case [id number] COMPLETE) SPINE LUMBOSACRAL 2 OR 3 VIEWS (RAD Detailed) CPT:18810 Reason for Study: lumbago Clinical History: Report Status: Verified Date Reported: JUL 08, 2024 Date Verified: JUL 08, 2024 Basting Marker E-Sig:/ES/POPEYE MEREDITH Report: INDICATION: lumbago COMPARISON: TECHNIQUE: Lumbar spine 3 views Impression: 5 nonrib-bearing bearing vertebral bodies. Lowest fully formed intervertebral disc space is designated as L5-S1. Normal vertebral body heights. Mild to moderate disc space narrowing at the T12/L1 and to lesser extent at the L5-S1. Mild lower lumbar facet arthrosis. No traumatic subluxation of the posterior elements. Primary Interpreting Staff: POPEYE MEREDITH RADIOLOGIST (Basting Marker) /POPEYE PARMAR [facility] Jul 08, 2024 10:40 AM SHOULDER,LEFT,2 OR MORE VIEWS: REVA WISE BECKIE [id number] -1995 M Exm Date: JUL 08, 2024@10:40 Req Phys: JAKE,GLADYS S Pat Loc: [facility] E4 PCP (Req'g Loc) Img Loc: [facility] Service: Unknown [address] [id number] (Case [id number] COMPLETE) SHOULDER,LEFT,2 OR MORE VIEWS (RAD Detailed) CPT:26702 Reason for Study: bilateral shoulder pain Clinical History: Report Status: Verified Date Reported: JUL 08, 2024 Date Verified: JUL 08, 2024 Basting Marker E-Sig:/ES/POPEYE MEREDITH Report: , [id number] INDICATION: bilateral shoulder pain COMPARISON: None TECHNIQUE: Bilateral shoulder multiple views Impression: No acute displaced fracture. No significant malalignment. Primary Interpreting Staff: POPEYE MEREDITH RADIOLOGIST (Basting Marker) /POPEYE PARMAR [facility] Jul 08, 2024 10:40 AM SHOULDER,RIGHT,2 O R MORE VIEWS: REVA WISE BECKIE [id number] -1995 M Exm Date: JUL 08, 2024@10:40 Req Phys: JAKEZULEYKAGLADYS S Pat Loc: [facility]CT E4 PCP (Req'g Loc) Img Loc: [facility] Service: Unknown [address] [id number] (Case [id number] COMPLETE) SHOULDER,RIGHT,2 OR MORE VIEWS (RAD Detailed) CPT:99797 Proc Modifiers : RIGHT Reason for Study: bilateral shoulder pain Clinical History: Report Status: Verified Date Reported: JUL 08, 2024 Date Verified: JUL 08, 2024 Basting Marker E-Sig:/ES/POPEYE MEREDITH Report: , [id number] INDICATION: bilateral shoulder pain COMPARISON: None TECHNIQUE: Bilateral shoulder multiple views Impression: No acute displaced fracture. No significant malalignment. Primary Interpreting Staff: POPEYE MEREDITH, RADIOLOGIST (Ora) /POPEYE PARMAR [facility] Encounter Notes: All associated encounter notes This section contains the clinical notes associated to the Encounter. Date/Time Encounter Note(s) Provider Source Jul 26, 2024 10:17 AM PRIMARY CARE NOTE: LOCAL TITLE: [facility] TRAVELING PCMM NOTE [facility] STANDARD TITLE: PRIMARY CARE NOTE DATE OF NOTE: JUL 26, 2024@10:17 ENTRY DATE: JUL 26, 2024@10:17:06 AUTHOR: MAYELIN POLLARD EXP COSIGNER: URGENCY: STATUS: COMPLETED Traveling/Relocating Care Coordination Patient-Centered Management Module (PCMM) New patient PCMM received and approved for permanent relocation of care to: [facility] Per chart review will establish care with a PCP on: 08/16/24 [facility] Please note the alternate [facility] is responsible for care until care is established at the receiving [facility]. /naga/ MAYELIN POLLARD REGISTERED NURSE, HOME TELEHEALTH COORDINATOR Signed: 07/26/2024 10:17 MAYELIN POLLARD [facility]
--- OUTSIDE RECORDS SUMMARY | 2025-01-19 07:45 | XMS_ITS | Encounter Summary ---
Author Name [facility] [place] Organization [facility] [place] Address [address] [place] [address] Care Team Providers Care Flat Breakdown Processor Name Role Phone GREGORY HARTLEY Primary Care Provider Unavailabl MUKESH Lieberman Primary Care Provider Unavailab le Selected Encounter This section includes the information on record at [place] for the Encounter. Date/Time Encounter Type Encounter Description Reason Provider Source Jul 20, 2024 08:00 AM OFFICE O/P NEW MOD 45 [facility] - IND ICD-10-CM F41.0 Panic disorder [episodic paroxysmal anxiety] BERNY LÓPEZ Dyana Encounter Template Text not used by [place] Assessments - Encounter Diagnoses This section includes the primary and secondary diagnoses documented for the Encounter. Date/Time Primary/Secondary Diagnosis Diagnosis Name Provider Source Jul 20, 2024 08:32 PM PRIMARY Panic disorder [episodic paroxysmal anxiety] BERNY LÓPEZ [facility] Jul 20, 2024 08:32 PM SECONDARY Attention and concentration deficit BERNY LÓPEZ [facility] Jul 20, 2024 08:32 PM SECONDARY Generalized anxiety disorder BERNY LÓPEZ [facility] Plan of Treatment: Future Appointments (+ 6 months) and Future Tests (+/- 45 days) The Plan of Treatment section includes future care activities for the patient from [facility] [place] [facility] This section includes future appointments and future orders which are active, pending or scheduled. Future Appointments This section includes appointments that were scheduled to occur 6 months from the date of the Encounter, up to a maximum of 20 appointments. The data comes from all [place] treatment facilities. Appointment Date/Time Appointment Type Appointme nt Facility Name Aug 03, 2024 07:30 AM AMBULATORY - REHAB MEDICIN E [facility] Aug 13, 2024 09:30 AM AMBULATORY - REHAB MEDICIN E [facility] Aug 16, 2024 01:30 PM AMBULATORY - MEDICINE [facility] Sep 07, 2024 01:30 PM AMBULATORY - PSYCHIATRY [facility] Sep 09, 2024 03:00 PM AMBULATORY - REHAB MEDICIN E [facility] Sep 10, 2024 12:00 PM AMBULATORY - NONE [facility] November 26, 2024 09:30 AM AMBULATORY - PSYCHIATRY [facility] Social History: Smoking Status (Most current) and Tobacco Use (All prior to encounter date) This section includes the most current, and the historical, smoking and tobacco- related health factors from the [place] facility where the Encounter took place. Current Smoking Status This section includes the most current smoking, or tobacco-related health factor, from the [place] facility where the Encounter took place. Date/Time Current Smoking Status Comment Facil ity May 30, 2022 01:30 PM VA-TOBACCO QUIT 1 TO < 5 YRS [facility] Tobacco Use History This section includes a history of the smoking, or tobacco-related health factors, that were collected on or before the date of the Encounter. The data comes from the [place] facility where the Encounter took place. 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 The data comes from all [place] treatment facilities. Date/Time Radiology Report Provider Source Jul 08, 2024 10:40 AM SPINE LUMBOSACRAL 2 OR 3 VIEWS: REVA WISE [id number] -1995 M Exm Date: JUL 08, 2024@10:40 Req Phys: GLADYS JOSEPH Pat Loc: [facility] PCP (Req'g Loc) Img Loc: [facility] Service: [address] [address] (Case [id number] COMPLETE) SPINE LUMBOSACRAL 2 OR 3 VIEWS (RAD Detailed) CPT:82712 Reason for Study: lumbago Clinical History: Report Status: Verified Date Reported: JUL 08, 2024 Date Verified: JUL 08, 2024 Road Freight Firer E-Sig:/ES/POPEYE MEREDITH Report: INDICATION: lumbago COMPARISON: TECHNIQUE: [...] elements. Primary Interpreting Staff: POPEYE MEREDITH, RADIOLOGIST (Road Freight Firer) /ME ELOLIBY,MOHAMED [facility] Jul 08, 2024 10:40 AM SPINE CERVICAL MIN 4 OR 5 VIEWS: REVA WISE BECKIE [id number] -1995 M Exm Date: JUL 08, 2024@10:40 Req Phys: GLADYS JOSEPH Pat Loc: [facility]4 PCP (Req'g Loc) Img Loc: [facility] Service: Unknown [address] [address] (Case [id number] COMPLETE) SPINE CERVICAL MIN 4 OR 5 VIEWS (RAD Detailed) CPT:52887 Reason for Study: cervicalgia Clinical History: Report Status: Verified Date Reported: JUL 08, 2024 Date Verified: JUL 08, 2024 Road Freight Firer E-Sig:/ES/POPEYE MEREDITH Report: INDICATION: cervicalgia COMPARISON: None TECHNIQUE: Cervical spine 3 views Impression: C6 and 7 are not well evaluated on the lateral projections due to overlying structures. The lateral masses of C1 and C2 are grossly aligned. No abnormal thickening of the prevertebral soft tissues. Visualized vertebral body heights and intervertebral disc spaces are normal. Primary Interpreting Staff: POPEYE MEREDITH, RADIOLOGIST (Road Freight Firer) /POPEYE PARMAR [facility] Jul 08, 2024 10:40 AM SHOULDER,RIGHT,2 O R MORE VIEWS: REVA WISE BECKIE [id number] -1995 M Exm Date: JUL 08, 2024@10:40 Req Phys: GLADYS JOSEPH Pat Loc: [facility]4 PCP (Req'g Loc) Img Loc: -[facility] Service: Unknown [address] [address] (Case [id number] COMPLETE) SHOULDER,RIGHT,2 OR MORE VIEWS (RAD Detailed) CPT:28118 Proc Modifiers : RIGHT Reason for Study: bilateral shoulder pain Clinical History: Report Status: Verified Date Reported: JUL 08, 2024 Date Verified: JUL 08, 2024 Road Freight Firer E-Sig:/ES/POPEYE MEREDITH Report: , [id number] INDICATION: bilateral shoulder pain COMPARISON: None TECHNIQUE: Bilateral shoulder multiple views Impression: No acute displaced fracture. No significant malalignment. Primary Interpreting Staff: POPEYE MEREDITH, RADIOLOGIST (Road Freight Firer) /POPEYE PARMAR [facility] Jul 08, 2024 10:40 AM SHOULDER,LEFT,2 OR MORE VIEWS: REVA WISE [id number] -1995 M Exm Date: JUL 08, 2024@10:40 Req Phys: GLADYS JOSEPH S Pat Loc: [facility] E4 PCP (Req'g Loc) Img Loc: [facility] Service: [address] [address] (Case [id number] COMPLETE) SHOULDER,LEFT,2 OR MORE VIEWS (RAD Detailed) CPT:26011 Reason for Study: bilateral shoulder pain Clinical History: Report Status: Verified Date Reported: JUL 08, 2024 Date Verified: JUL 08, 2024 Road Freight Firer E-Sig:/ES/POPEYE MEREDITH Report: , [id number] INDICATION: bilateral shoulder pain COMPARISON: None TECHNIQUE: Bilateral shoulder multiple views Impression: No acute displaced fracture. No significant malalignment. Primary Interpreting Staff: POPEYE MEREDITH, RADIOLOGIST (Road Freight Firer) /POPEYE PARMAR [facility] Encounter Notes: All associated encounter notes This section contains the clinical notes associated to the Encounter. Date/Time Encounter Note(s) Provider Source Jul 20, 2024 08:07 AM PSYCHIATRY CONSULT: LOCAL TITLE: PSYCHIATRY [facility] STANDARD TITLE: PSYCHIATRY CONSULT DATE OF NOTE: JUL 20, 2024@08:07 ENTRY DATE: JUL 20, 2024@08:07:58 AUTHOR: PADMINI BRUNSON COSIGNER: URGENCY: STATUS: COMPLETED PSYCHIATRY [facility] Has ADDENDA NAME................. REVA WISE AGE.................. 29 SEX.................. MALE TODAY'S DATE......... JUL 20, 2024 LENGTH OF SESSION:60 minutes REASON FOR CONSULTATION: was referred from the [facility] clinic psychiatrist for further evaluation of ADHD. Had been seen in the clinic since 2021 and had been back to [place] for a brief period of 2.5 months. Had an appointment yesterday since returning and the following medication changes were made: self discontinued the Paroxetine, started on Bupropion 12hr 100mg daily. HISTORY OF PRESENT ILLNESS: Mr. Wise is a 29 yr old male , , , in a new relationship, employed with a history of depression, anxiety and current issues related to concentration and attention was seen today for an initial consult to establish care. States that he first started seeing psychiatry in 2021 for depression and anxiety, which is fairly controlled now. He recently stopped taking the paroxetine due to concerns with side effects. States that he had his first episode of panic attack around 2019 as he was then cheating on his current and was constantly anxious about being caught, which did finally have been leading to the panic attack and going to the hospital. He continues to have episodes of panic attacks that happen at random, but they are much better than before. It is after this episode of panic attacks that he has noticed issues with concentration, having a brain fog, misplacing things and gets easily distracted leading to forgetfulness. He is worried that these symptoms would interfere with his relationship and being able to provide for his son. States that he did okay when in school, usually got C grades, did not pay much attention to Academics but was interested in sports and participated in wrestling and football. Soon after high school he joined the and did okay with the training sessions. They were divided the small groups who worked together and so the combined study helped him get through without much difficulty. Even after getting out of the when he did his vocational courses, he continued with the study group and was able to get through. He usually does not do well when he standing by himself as he gets distracted. Denies having been diagnosed with ADHD or other learning disorders back in school. Was mostly brought up by his grandparents, along with his brother. Did not voice any episodes of jona or hypomania or other obsessive or compulsive behaviors. He was just recently prescribed the bupropion which he is still waiting to receive by mail. We discussed about doing therapy to help with concentration and focus, as he would just be starting with the bupropion. PSYCHIATRIC HISTORY: Mental Health Tx History (include psychiatric hospitalizations): Present, describe: Out-patient treatment and therapy Past MH Medications Taken/side effects/outcomes/adherence: Present, describe: discontinued the Paroxetine due to diarrhea and sexual side effects SAFETY CONCERNS: History of Violent Behavior Leading to Legal Consequences or Hospitalization: Absent/Denied History of Self Harm/Suicide Attempts: Absent/Denied Current Access to Guns/Weapons: Absent/Denied TRAUMA HISTORY: Non- Trauma History, Violence: Absent/Denied Trauma History (including MST): Absent/Denied Abuse/Neglect/Exploitation/In terpersonal Violence Absent/Denied SUBSTANCE USE & ADDICTIVE DISORDER HISTORY: History of Problematic Substance Use: Absent/Denied Drinks only on social occasions. Denies any tobacco or other illicit substances Other addictions/behaviors that is difficult to stop or engages in for longer than intended (e.g. gambling.etc): Absent/Denied History of substance related medical problems: Absent/Denied PERTINENT MEDICAL/SURGICAL HISTORY: ===== Primary Care Provider: History of Illness/Medications: Present, describe: Back pain and knee issues History of Head Injuries: Absent/Denied NUTRITION ASSESSMENT: Unexplained/unintended weight loss: No Reliable access to nutrition (e.g., missing meals b/c of inadequate finances, etc): Yes PAIN ASSESSMENT: On scale of 0 to 10 rate pain: 0 Location: Current pain management plan:PCP aware and managing pain Achieving Pain Management Goals: Is the interested in additional services for pain at this time? If so, recommendation is: Life Sustaining Treatment Orders ALLERGIES: Patient has answered NKA OUTPATIENT MEDICATIONS: Active Outpatient Medications (excluding Supplies): Issue Date Status Last Fill Active Outpatient Medications Refills Expiration 1) BUPROPION HCL 100MG 12HR SA TAB Qty: 30 for ACTIVE Issue: 07/19/24 30 days Sig: TAKE ONE TABLET BY MOUTH ONCE A Refills: 5 Last : 07/19/24 DAY SWALLOW WHOLE - DO NOT CRUSH OR CHEW. Expr : 07/20/25 Indication: FOCSUING AND CONCENTRATING 2) CHOLECALCIF 50MCG (D3-2,000UNIT) TAB Qty: ACTIVE Issue: 10/20/23 100 for 90 days Sig: TAKE ONE TABLET BY Refills: 3 Last : 10/22/23 MOUTH ONCE A DAY Expr : 10/20/24 Indication: FOR VITAMIN D DEFICIENCY 3) CYCLOBENZAPRINE HCL 10MG TAB Qty: 30 for 30 ACTIVE Issue: 07/08/24 days Sig: TAKE ONE TABLET BY MOUTH NIGHTLY Refills: 0 Last : 07/08/24 NEEDED MAY CAUSE DROWSINESS. DO NOT Expr : 08/07/24 DRINK ALCOHOL WHILE TAKING THIS MEDICATION. Indication: FOR MUSCLE SPASM 4) GABAPENTIN 100MG CAP Qty: 90 for 90 days ACTIVE Issue: 07/08/24 Sig: TAKE ONE CAPSULE BY MOUTH NIGHTLY Refills: 1 Last : 07/08/24 Indication: FOR NERVE PAIN Expr : 07/09/25 5) IBUPROFEN 800MG TAB Qty: 360 for 90 days ACTIVE Issue: 07/08/24 Sig: TAKE ONE TABLET BY MOUTH FOUR TIMES A Refills: 0 Last : 07/08/24 DAY TAKE WITH FOOD. Expr : 10/06/24 Indication: FOR PAIN 6) METHYLPREDNISOLONE 4MG TAB DOSEPAK,21 Qty: 1 ACTIVE Issue: 07/08/24 for 6 days Sig: TAKE TABLETS BY MOUTH Refills: 0 Last : 07/08/24 DIRECTED TAKE 6 TABLETS BY MOUTH ON DAY ONE, Expr : 08/07/24 THEN DECREASE BY ONE TABLET DAILY UNTIL GONE. TAKE WITH FOOD. Indication: FOR INFLAMMATION ACTIVE OUTPATIENT INJECTIONS AND INPATIENT MEDICATIONS: No medications found. FAMILY HISTORY (including history of mental health conditions, suicide, addiction/substance abuse): Denies family history of mental illness, addictive disorders, or suicide SOCIAL AND DEVELOPMENTAL HISTORY: ====== but from his current . In another relationship, just had his first child with his current girlfriend, which is 10 days old. 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 Brought up with his grandparents. Has a brother. GENDER/SEXUAL ORIENTATION (include preferred pronouns, as identified): Heterosexual HISTORY: [employer]: Got out in 2019, honorable discharge. no H/o combat Served for 4 years REVIEW OF SYSTEMS: Negative 13 system review Constitutional...........No Eyes.....................No Ears/Nose/Mouth/Throat...No Cardiovascular...........No Respiratory..............No Gastrointestinal.........No Genitourinary............No Muscular.................No Integumentary............No Neurological.............No Endocrine................No Hematologic/Lymphatic....No Allergies/Immune.........No PSYCHIATRIC SPECIALTY EXAMINATION: MENTAL STATUS EXAMINATION == CONSTITUTIONAL: Vital signs: Pulse.................73 (07/08/2024 09:52) Temperature...........98.1 F [36.7 C] (07/08/2024 09:52) Blood Pressure........133/82 (07/08/2024 09:52) Pain..................2 (07/08/2024 09:52) Weight................229.7 lb [104.19 kg] (07/08/2024 09:52) Patient Weight History - Last Four Patient Weight History - Last Four 1. 229.7 lbs. / 104.2 kg. on JUL 08, 2024@09:52:15 2. 236.4 lbs. / 107.2 kg. on OCT 14, 2023@15:05:33 3. 204.3 lbs. / 92.7 kg. on MAY 30, 2022@13:28:54 4. 191.2 lbs. / 86.7 kg. on DEC 19, 2020@10:58:23 BMI: 37.2 General appearance of patient: Appears appropriately dressed, fairly groomed MUSCULOSKELETAL: Assessment of muscle strength and tone: Able to move all extremities Examination of gait and station: normal PSYCHIATRIC: Description of speech: Normal rate, rhythm and volume Description of thought processes: Linear, goal-directed Description of associations: Intact Description of abnormal psychotic thoughts: Denies any suicidal or homicidal thoughts. Denies any hallucinations or delusional thoughts Description of the patient's judgement: Fair COMPLETE MENTAL STATUS EXAMINATION INCLUDING: Orientation to time, place and person: Oriented Recent and remote memory: Able to recall most of the history Attention span and concentration: Able to hold a conversation Language: Fluent Fund of knowledge: Fair Mood and affect: I am doing okay now appears to be full range LABORATORY DATA: CBC: WBC 9.1 10*3/uL 10/14/2023 15:47 RBC 4.79 [...] 15:47 BASOPHILS, ABSOLUTE 0.07 10*3/uL 10/14/2023 15:47 CHEM 7: SODIUM 140 mEq/L 10/14/2023 15:47 POTASSIUM 4.1 mEq/L 10/14/2023 15:47 CHLORIDE 104 mEq/L 10/14/2023 15:47 UREA NITROGEN 22.5 mg/dL 10/14/2023 15:47 CREATININE 1.04 mg/dL 10/14/2023 15:47 CALCIUM 9.4 mg/dL 10/14/2023 15:47 CARBON DIOXIDE 27 mEq/L 10/14/2023 15:47 GLUCOSE 83 mg/dL 10/14/2023 15:47 EGFR (CKD-EPI 2020) 100.93 10/14/2023 15:47 HEPATIC PANEL: 07/20/2024 08:08 CONFIDENTIAL HEPATIC PANEL STL SUMMARY pg. 1 REVA WISE [id number] : 1995 SLT - Lab Tests Selected (max 1 occurrence or 1 year) Collection DT Specimen Test Name Result Units Ref Range 10/14/2023 15:47 PLASMA PROTEIN 7.4 g/dL 6.0 - 8.6 10/14/2023 15:47 PLASMA ALBUMIN 4.4 g/dL 3.4 - 5.0 10/14/2023 15:47 PLASMA TOTAL BILIRUBIN 0.3 mg/dL 0.2 - 1.2 10/14/2023 15:47 PLASMA ALKALINE PHOSPHAT 54 U/L 40 - 150 10/14/2023 15:47 PLASMA AST/SGOT 33 U/L 5 - 34 10/14/2023 15:47 PLASMA ALT/SGPT 31 U/L 8 - 40 Comment: No hemolysis noted. TRIGLYCERIDES...209 mg/dL H (10/14/23 15:47) CHOLESTEROL.....CHOLESTEROL 225 H mg/dL 10/14/2023 15:47 TSH.............TSH 1.093 uIU/mL 10/14/2023 15:47 LITHIUM.........____ VALPROIC ACID...____ ASSESSMENT AND TREATMENT PLANNING: ===== DSM V DIAGNOSIS: Panic disorder Generalized anxiety disorder Attention and concentration deficit ASSESSMENT AND TREATMENT PLAN (INCLUDING RISK ASSESSMENT): Mr. Wise is a 29 yr old male , , , in a new relationship now, employed, recently had a baby, with a history of depression and anxiety was seen today for an initial evaluation to assess for issues related to concentration, forgetfulness, inattention and frustration related to these symptoms. He was just prescribed the Bupropion, which he has not yet started and also discontinued the Paroxetine due to side effects. We agreed to not make any medication changes today as he starts to take the Bupropion and to look into the [employer] therapy to address concentration and inattention. -To start taking Bupropion 12 hr tablet 100mg daily, prescribed by Dr. Kathy Camp yesterday. Discussed about monitoring for increasing anxiety or tremors or other side effects. -Discontinued the Paroxetine due to side effects of diarrhea, emotional numbing and sexual. -Consult placed for [employer] therapy. Risk Assessment: Risk factors: male, h/o depression, relationship issues, Protective factors: denies any suicidal thoughts or previous attempts, motivated to get better, father to a , in a relationship, support from partner, future oriented Acute Risk: low Chronic risk: Low INTERVENTIONS: We discussed alternatives to treatment, including no treatment, as well as risks, benefits, side effects. The patient/guardian understood and consented to treatment provided. is new to team. Provided [place] with an overview of the interdisciplinary team and available services. REFERRALS: Psychotherapy/psychosocial interventions considered/discussed. Patient Education INSTRUCTIONS GIVEN TO PATIENT/FAMILY: Report medication side effects promptly No alcohol/illicit drug use with medication Exercise caution with driving/use of machinery Monitor for sedation with use of the medication and if needed avoid use in situations where decreased level of alertness could potentially be dangerous Follow up with Primary Care Provider If symptoms get worse, call clinic or Emergency Room as appropriate Provided orientation to the inter-disciplinary team and ways to access crisis/emergency care FOLLOW-UP: Return to clinic in 6 weeks as C C-SSRS: unable to do it today as it was done yesterday at the [facility] clinic. /jerardo BRUNSON Staff Psychiatrist[facility]KAR [facility] Signed: 07/20/2024 20:48 07/20/2024 ADDENDUM STATUS: COMPLETED Suicide Screen - V: C-SSRS Screening Johnston-Suicide Severity Rating Scale (C-SSRS Screener) 1. Over [...] required due to responses to other questions. /jerardo BRUNSON Staff PsychiatrOMKAR [facility] Signed: 07/21/2024 08:27 EULOGIO BRUNSON [facility]
--- OUTSIDE RECORDS SUMMARY | 2025-01-19 07:45 | XMS_ITS | Encounter Summary ---
Author Name [facility] [place] [facility] [place] Address [address] [place] [address] Care Team Providers Care Emergency Medicine Nurse Practitioner Name Role Phone GREGORY HARTLEY Primary Care Provider Unavailabl MUKESH Lieberman Primary Care Provider Unavailab le Selected Encounter This section includes the information on record at [place] for the Encounter. Date/Time Encounter Type Encounter Description Reason Provider Source Sep 07, 2024 01:30 PM PSYTX W PT 30 [facility]ES [facility] - IND ICD-10-CM F90.9 Attention-deficit hyperactivity disorder, unspecified type BERNY NESBITT Dyana Encounter Template Text not used by [place] Assessments - Encounter Diagnoses This section includes the primary and secondary diagnoses documented for the Encounter. Date/Time Primary/Secondary Diagnosis Diagnosis Name Provider Source Sep 08, 2024 11:11 PM PRIMARY Attention-deficit hyperactivity disorder, unspecified type JCAMPARABERNY MARTIN [facility] Sep 08, 2024 11:11 PM SECONDARY Generalized anxiety disorder BERNY LÓPEZ [facility] Sep 08, 2024 11:11 PM SECONDARY Panic disorder [episodic paroxysmal anxiety] ROSEMARIE AveryBERNY [facility] Plan of Treatment: Future Appointments (+ 6 months) and Future Tests (+/- 45 days) The Plan of Treatment section includes future care activities for the patient from all [facility] This section includes future appointments and future orders which are active, pending or scheduled. Future Appointments This section includes appointments that were scheduled to occur 6 months from the date of the Encounter, up to a maximum of 20 appointments. The data comes from all [place] treatment facilities. Appointment Date/Time Appointment Type Appointme nt Facility Name Sep 09, 2024 03:00 PM AMBULATORY - REHAB MEDICIN E [facility] Sep 10, 2024 12:00 PM AMBULATORY - NONE . [facility] November 26, 2024 09:30 AM AMBULATORY - PSYCHIATRY [facility] Social History: Smoking Status (Most current) and Tobacco Use (All prior to encounter date) This section includes the most current, and the historical, smoking and tobacco- related health factors from the [place] facility where the Encounter took place. Current Smoking Status This section includes the most current smoking, or tobacco-related health factor, from the [place] facility where the Encounter took place. Date/Time Current Smoking Status Comment Gómez ity May 30, 2022 01:30 PM VA-TOBACCO FORMER USER [facility] Tobacco Use History This section includes a history of the smoking, or tobacco-related health factors, that were collected on or before the date of the Encounter. The data comes from the [place] facility where the Encounter took place. Date/Time Smoking Status/Tobacco Use Comment F acility May 30, 2022 01:30 PM VA-TOBACCO QUIT 1 TO < 5 YRS [facility] Aug 20, 2019 09:00 AM VA-TOBACCO USE 1 TO < 5 YEARS [facility] Aug 20, 2019 09:00 AM VA-TOBACCO USE ADVICE [facility] Aug 20, 2019 09:00 AM VA-TOBACCO USE MECHANIC INSULATOR NO [facility] Aug 20, 2019 09:00 AM VA-TOBACCO USE MED NO [facility] Aug 20, 2019 09:00 AM VA-TOBACCO USE WI 30 MIN OF WAKEUP [facility] Aug 20, 2019 09:00 AM VA-TOBACCO USER EVERY DAY [facility] Radiology Reports: +/- 30 days of [...] the Encounter. The data comes from all [place] treatment facilities. Date/Time Radiology Report Provider Source Sep 10, 2024 12:54 PM MRI SPINE LUMBAR W /O CONT: REVA WISE [id number] -[id number] M Exm Date: SEP 10, 2024@12:54 Req Phys: MUKESH JIMÉNEZ Loc: [facility] E[facility] PCP (Req'g Loc) Img Loc: [facility] Service: [address] [address] (Case [id number] COMPLETE) MRI SPINE LUMBAR W/O CONT (MRI Detailed) CPT:70983 Reason for Study: low back pain w/ radiculopathy Clinical History: Has this patient had a plain film x-ray of this associated spine within the past 6 months? No If the above answer is no, please order an x-ray of the associated spine along with the MRI. These studies will be performed during the same patient encounter. Date of plain film x-ray performed? Aug Responsible Attending: ana cristina Attending Contact Number: x Resident Contact Number: Does your patient have an implanted device or hardware? (Any prosthesis, implant, shrapnel or bullet fragments) No Does your patient have any of the following (Please check all that apply) [ ] Pacemaker [ ] AICD [ ] Neuro-stimulator [ ] Bone Growth Stimulator [ ] Pain Pump [ ] Insulin Pump [ ] Cochlear Implant [ ] Ocular Implant [ ] Aneurysm Clip [ ] Vascular Clip Any other type of implant, please explain Does your patient have a Coronary Stent: No Does your patient have a an artificial Heart Valve: No Were any of the following intravascular implanted devices inserted less than 6 weeks ago: Stent No IVC Filter No Embolization Coils No Is your patient's weight >350lbs or abdominal and shoulder width >60cm? No Does your patient have Renal Failure, Chronic or Acute Renal Disease? No If ordering a contrasted enhanced MRI, you will be required to complete the order for creatine eGFR which is located at the bottom of the MRI ordering screen. If your patient is 60 years or older, the patient will need a recent eGFR within 30 days prior to the exam. NOTE: Incorrectly answering these questions may result in a delay in the procedure. A patient with a device or implant does not automatically mean the patient cannot receive an MRI. If your patient will have difficulty with a confined space, the provider will be responsible for ordering a sedation prior to the procedure, or to order an alternative procedure. ----- In the event this patient needs referred to Community Care: Does this patient have mobility issues that will require additional assistance at the imaging center? No If yes, please provide specifics: Does this patient require an open bore MRI due to claustrophobia? No Has a close bore MRI with oral sedation been tried? No This order requests: Without Contrast Report Status: Verified Date Reported: SEP 10, 2024 Date Verified: SEP 10, 2024 [employer] E-Sig:/ES/HAROON ROJAS Report: MRI SPINE LUMBAR W/O CONT [id number] DATE: 09/10/2024 3:03 PM HISTORY: low back pain w/ radiculopathy. COMPARISON: Lumbar spine radiographs of 07/08/2024. TECHNIQUE: MRI lumbar spine without intravenous contrast FINDINGS: The conus medullaris extends inferiorly to the L1 vertebral level and appears normal. The comparison radiographs confirm 5 segmented nonrib-bearing lumbar-type vertebrae. The current examination confirms normal spinal alignment, osseous signal and morphology. There is normal disc hydration present with borderline disc space narrowing at L3-4. No spondylolysis nor spondylolisthesis are observed. The intervertebral facet joints appear normal in the sagittal plane. The sagittal images demonstrate small ventral indentations upon the thecal sac at L1-L5. Analysis based upon the axial images is as follows: L1-2: Minimal diffuse annular bulge. No disc protrusion, extrusion or spinal canal stenosis. No neural foramen stenosis. L2-3: Minimal diffuse annular bulge. No disc protrusion, extrusion or spinal canal stenosis. No neural foramen stenosis. L3-4: Minimal diffuse annular bulge. No disc protrusion, extrusion or spinal canal stenosis. No neural foramen stenosis. L4-5: Small central posterior disc-osteophyte complex mildly indents the thecal sac. No definite disc protrusion, extrusion or spinal canal stenosis. No neural foramen stenosis. L5-S1: No disc protrusion, extrusion or spinal canal stenosis. No neural foramen stenosis. The anterior wall of the aorta is obscured by the anterior saturation band. The visible kidneys show no hydronephrosis. Impression: Small central posterior disc osteophyte complex at L4-5. Otherwise, no significant posterior disc abnormalities, central spinal stenosis nor visible exiting nerve root impingement. Primary Interpreting Staff: HAROON ROJAS, Diagnostic Radiologist ([employer]) /[facility] Encounter Notes: All associated encounter notes This section contains the clinical notes associated to the Encounter. Date/Time Encounter Note(s) Provider Source Sep 07, 2024 01:45 PM PSYCHIATRY NOTE: LOCAL TITLE: PSYCHIATRY ST STANDARD TITLE: PSYCHIATRY NOTE DATE OF NOTE: SEP 07, 2024@13:45 ENTRY DATE: SEP 07, 2024@13:45:37 AUTHOR: PADMINI BRUNSON COSIGNER: URGENCY: STATUS: COMPLETED PSYCHIATRY PROGRESS NOTE SEP 07, 2024 Name: REVA WISE Age: 29 Race: WHITE Sex: MALE Service connection: Service Connected: 50% Rated Disabilities: LIMITED FLEXION OF KNEE (10% SC) LIMITED FLEXION OF KNEE (10% SC) LIMITED MOTION OF ANKLE (20% SC) LUMBOSACRAL OR CERVICAL STRAIN (10% SC) TINNITUS (10% SC) Consent: Hankinson verbally consents to a clinical video telehealth follow-up appointment. Address: [address] [place] [address] Phone number: Survey: patient alone Lock: The virtual conference room was locked. EMERGENCY PLAN In the event of an emergency, the or family will call emergency services, if capable. Teleprovider will remain in the virtual medical room until emergency response arrives and handoff to emergency services is complete. If Hankinson is unable to make emergency call, Teleprovider is to call the national E911 service at [phone] and ask to be connected to emergency services for the 's location. Crisis Hotline: 144.112.9129 [employer] ([employer]): 316.976.2345 or 172-725-1323 ALLERGIES: Patient has answered NKA --------- MEDICATIONS: Active Outpatient Medications (including Supplies): Active Outpatient Medications Status 1) BUPROPION HCL 100MG 12HR SA TAB TAKE ONE TABLET BY MOUTH ACTIVE ONCE A DAY SWALLOW WHOLE - DO NOT CRUSH OR CHEW. Indication: FOCSUING AND CONCENTRATING 2) CHOLECALCIF 50MCG (D3-2,000UNIT) TAB TAKE ONE TABLET BY ACTIVE MOUTH ONCE A DAY Indication: FOR VITAMIN D DEFICIENCY 3) GABAPENTIN 100MG CAP TAKE ONE CAPSULE BY MOUTH NIGHTLY ACTIVE Indication: FOR NERVE PAIN 4) IBUPROFEN 800MG TAB TAKE ONE TABLET BY MOUTH FOUR TIMES A ACTIVE DAY TAKE WITH FOOD. Indication: FOR PAIN 5) LIDOCAINE 5% PATCH APPLY 1 PATCH TO SKIN SITE ONCE A DAY ACTIVE APPLY PATCH AND PRESS FIRMLY FOR 10-15 SECONDS. KEEP ON FOR 12 HOURS THEN REMOVE PATCH FOR 12 HOURS. Indication: FOR LOCAL ANESTHESIA No medications found. Reviewed, discussed and updated the current medication list with the . 1) Tobacco use 2) Chronic pain syndrome 3) Low back pain 4) Bilateral knee pain 5) Pain of left ankle joint 6) Tinnitus 7) Eczema 8) Sinusitis 9) Cough 10) High risk sexual behavior 11) Panic attack 12) Murmur 13) Carotid bruit 14) Depressive disorder 15) Divorce proceedings pending 16) Snoring 17) Obesity 18) Anxiety 19) Vitamin D Deficiency ([facility] [id number]) 20) Hyperlipidemia 21) Obstructive sleep apnea 22) Cervicalgia 23) Pain of bilateral shoulder regions 24) Lumbago Chief Complaint: I am not doing well, about the same as before HPI: --- REVA WISE is a 29 year old WHITE MALE presenting for psychiatric follow up appointment. BRIEF SUMMARY: was referred from the [facility] clinic psychiatrist for further evaluation of ADHD. Had been seen in the clinic since 2021 and had been back to [place] for a brief period of 2.5 months. Had an appointment yesterday since returning and the following medication changes were made: self discontinued the Paroxetine, started on Bupropion 12hr 100mg daily. First seen by this provider:07/20/2024 as an initial consult C-SSRS:07/20/2024 Patient was last seen on: 07/20/2024 Diagnosis: Panic disorder Generalized anxiety disorder Attention and concentration deficit Recommendations:He was just prescribed the Bupropion, which he [...] and sexual. -Consult placed for CogFacts therapy. INTERVAL HISTORY: Today patient reports that the bupropion did not help. He took it for 4 weeks, he was getting foggy, could not concentrate, and so stopped taking it. It did not worsen his anxiety. He would still forget things and is distracted easily. He continues to have issues with his girlfriend due to his forgetfulness, which makes him frustrated. He is willing to try another medication to help with his focus. He is not taking the Gabapentin as it made him very tired. Sleep: no changes Appetite: no changes Medication side effects: Bupropion made him foggy and not able to concentrate PAST MEDICATION HISTORY: *Paroxetine: caused diarrhea and sexual side effects *Bupropion 12 hr 100mg daily: caused brain fog, could not concentrate and so stopped it on his own after 4 weeks SOCIAL HISTORY: but from his current . In another relationship, just had his first child with his current girlfriend. 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 Brought up with his grandparents. Has a brother. SUBSTANCE USE HISTORY: Drinks only on social occasions. Denies any tobacco or other illicit substances Review of systems: Negative except where noted above. PHYSICAL EXAM: Measurement DT TEMP PULSE RESP BP HT WT F(C) IN(CM) LB(KG)[BMI] ---- ----- ---- -- ------ 07/08/2024 09:52 98.1(36.7) 73 16 133/82 230(104.2)[37*] 10/14/2023 15:05 98.0(36.7) 68 12 133/75 236(107.2)[38*] Measurement DT CVP POx CG CMH20(MMHG) (L/MIN)(%) IN(CM) ------ 07/08/2024 09:52 99 10/14/2023 15:05 98 Measurement DT Pain ---- 07/08/2024 09:52 2 10/14/2023 15:08 7 Measurement DT WEIGHT LB(KG)[BMI] 07/08/2024 09:52 229.7(104.19)[37*] 10/14/2023 15:05 236.4(107.23)[38*] Resp: Normal Effort Extremities: unable to assess, moving upper extremitites Neuro: not observed MENTAL STATUS EXAM: Appearance: appropriately dressed, fairly groomed Behavior towards examiner: Cooperative Eye contact: Fair via video Speech: normal rate, rhythm, volume and fluency Psychomotor: no psychomotor agitation or retardation Mood: I am doing the same Affect: appears mildly anxious Thought Process: logical, linear, goal-directed Thought Content: denies suicidal or homicidal thoughts, did not voice any delusions today Perception: denies any auditory or visual hallucinations, not observed to be reacting to internal stimuli Orientation: alert and oriented x 3 Attention/Concentration: able to hold a conversation Memory: can recall most of the information Fund of knowledge: average Insight: Fair Judgement: Fair LAB RESULTS: Complete Blood Count WBC 9.1 10*3/uL 10/14/2023 15:47 RBC 4.79 [...] 15:47 BASOPHILS, ABSOLUTE 0.07 10*3/uL 10/14/2023 15:47 Comprehensive Metabolic Panel SODIUM 140 mEq/L 10/14/2023 15:47 POTASSIUM 4.1 [...] 15:47 EGFR (CKD-EPI 2020) 100.93 10/14/2023 15:47 Lipid Panel TRIGLYCERIDE 209 H mg/dL 10/14/2023 15:47 CHOLESTEROL 225 H mg/dL 10/14/2023 15:47 HDL(New) 48 mg/dL 10/14/2023 15:47 CALCULATED LDL 135 mg/dL 10/14/2023 15:47 Other pertinent labs HgbA1c: HGA1C 5.3 % 10/14/2023 15:47 TSH: TSH 1.093 uIU/mL 10/14/2023 15:47 B12: B12 507 pg/mL 10/14/2023 15:47 MMA: Folate: No FOLATE (STL-MA);FOLATE (PB);FOLATE (DC 04-20);FOLATE (DC 04/20) data found Vitamin D:VITAMIN D, 25-HYDROXY 15.9 L ng/mL 10/14/2023 15:47 Ammonia: No data available for: AMMONIA (STL-MA) CPK: ____ RPR: NR (03/14/23 11:06) HIV: No HIV Antibody (STL);HIV COMBO (STL-MA) data found HCV: HEP C Ab HCV Ab ([facility]) Nonreactive S/CO 03/14/2023 11:06 Dilantin: ____ Tegretol: No CARBAMAZEPINE EO data found Valproate: No data available for: VALPROIC ACID (STL-MA) Clozapine: WBC 9.1 10*3/uL 10/14/2023 15:47 RBC 4.79 [...] 15:47 BASOPHILS, ABSOLUTE 0.07 10*3/uL 10/14/2023 15:47 Lamotrigine: SLT - Lab Tests Selected No data available for: LAMOTRIGINE Urinalysis URINE COLOR Light-Yellow 03/14/2023 13:21 APPEARANCE Clear 03/14/2023 13:21 U.PH 7.0 03/14/2023 13:21 U.BILIRUBIN Negative mg/dL 03/14/2023 13:21 U.NITRITE Negative mg/dL 03/14/2023 13:21 Urine Drug Screen No data available EKG: No data available for: EKG CONSULT STL EKG CONSULTS PB EKG RESULTS NV DIAGNOSIS: ADHD unspecified, most likely combined type Panic disorder Generalized anxiety disorder ASSESSMENT/PLAN: Mr. Wise is a 29 yr old male , , , in a new relationship now, employed, recently had a baby, with a history of depression and anxiety was seen today for follow up. He continues to struggle with focus, being very forgetful and this is affecting his work and his home life. We agreed to try the Atomoxetine to help with his symptoms as he did not tolerate the Bupropion. -Atomoxetine: start taking 10mg daily 15 days and then increase to 20mg daily, to send us an update in 1 month. -Self discontinued the Bupropion due to side effects. -Started CogFacts therapy with the speech therapist We discussed alternatives to treatment, including no treatment, as well as risks, benefits, side effects. The patient understood and consented to treatment provided. Patient aware to call clinic or Emergency Room as appropriate if symptoms get worse or if patient experiences side effects from medications. Time spent: 32 minutes Spent about 17 minutes in supportive therapy SAFETY RISK ASSESSMENT: Risk factors: male, h/o depression, relationship issues, Protective factors: denies any suicidal thoughts or previous attempts, motivated to get better, father to a , in a relationship, support from partner, future oriented Acute Risk: low Chronic risk: Low is currently stable for outpatient care. RTC: in 2 months as [facility] INSTRUCTIONS GIVEN TO PATIENT/FAMILY: * Report medication side effects promptly * No alcohol/illicit drug use with medication * Needs to be cautious with driving/use of machinery * Avoid night-time driving * Follow up with Primary Care Provider * If symptoms get worse, call clinic or Emergency Room as appropriate /naga/ BERNY BRUNSON Staff Psychiatrist, [facility] Signed: 09/08/2024 23:20 PADMINI BRUNSON [facility]
--- OUTSIDE RECORDS SUMMARY | 2025-01-19 07:45 | XMS_ITS | Encounter Summary ---
Author Name [facility] [facility] [place] Address [address] [place] [address] Care Team Providers Care Freelance Court Stenographer Name Role Phone GREGORY HARTLEY Primary Care Provider UnavailMUKESH Dutta Primary Care Provider Unavail le Selected Encounter This section includes the information on record at CT for the Encounter. Date/Time Encounter Type Encounter Description Reason Pro vider Source Jul 16, 2024 01:04 PM CASE MANAGEMENT ADMIN PAT ACTIVTIES (MASNONCT) MAYELIN POLLARD Dyana Encounter Template Text not used by CT Plan of Treatment: Future Appointments (+ 6 months) and Future Tests (+/- 45 days) The Plan of Treatment section includes future care activities for the patient from all CT treatmentfacilities. This section includes future appointments and future orders which are active, pending or scheduled. Future Appointments This section includes appointments that were scheduled to occur 6 months from the date of the Encounter, up to a maximum of 20 appointments. The data comes from all [place] treatment facilities. Appointment Date/Time Appointment Type Appointme nt Facility Name Jul 19, 2024 10:00 AM AMBULATORY - PSYCHIATRY [facility] Jul 20, 2024 08:00 AM AMBULATORY - PSYCHIATRY [facility] Aug 03, 2024 07:30 AM AMBULATORY - REHAB MEDICIN E [facility] Aug 13, 2024 09:30 AM AMBULATORY - REHAB MEDICIN E [facility] Aug 16, 2024 01:30 PM AMBULATORY - MEDICINE [facility] Sep 07, 2024 01:30 PM AMBULATORY - PSYCHIATRY [facility] Sep 09, 2024 03:00 PM AMBULATORY - [facility] Sep 10, 2024 12:00 PM AMBULATORY - NONE [facility] November 26, 2024 09:30 AM AMBULATORY - PSYCHIATRY [facility] Social History: Smoking Status (Most current) and [...] VA-TOBACCO QUIT 1 TO < 5 YRS [facility] Tobacco Use History This section includes a history of the smoking, or tobacco-related health factors, that were collected on or before the date of the Encounter. The data comes from the [place] facility where the Encounter took place. Date/Time Smoking Status/Tobacco Use Comment F acility Sep 29, 2023 03:27 PM VA-TOBACCO QUIT 1 TO < 5 YRS [facility] Dec 15, 2020 12:10 PM VA-TOBACCO FORMER USER [facility] Dec 15, 2020 12:10 PM VA-TOBACCO QUIT 1 TO < 5 YRS [facility] Radiology Reports: +/- 30 days of the [...] the Encounter. The data comes from all [place] treatment facilities. Date/Time Radiology Report Provider Source Jul 08, 2024 10:40 AM SPINE LUMBOSACRAL 2 OR 3 VIEWS: WISE,REVA GABR [id number] -1995 M Exm Date: JUL 08, 2024@10:40 Req Phys: GLADYS JOSEPH Pat Loc: [facility] PCP (Req'g Loc) Img Loc: [facility] Service: Unknown [address] [id number] (Case [id number] COMPLETE) SPINE LUMBOSACRAL 2 OR 3 VIEWS (RAD Detailed) CPT:12750 Reason for Study: lumbago Clinical History: Report Status: Verified Date Reported: JUL 08, 2024 Date Verified: JUL 08, 2024 Heavy Equipment Rental Associate E-Sig:/ES/POPEYE MEREDITH Report: INDICATION: lumbago COMPARISON: TECHNIQUE: [...] elements. Primary Interpreting Staff: POPEYE MEREDITH, RADIOLOGIST (Heavy Equipment Rental Associate) /POPEYE PARMAR [facility] Jul 08, 2024 10:40 AM SPINE CERVICAL MIN 4 OR 5 VIEWS: REVA WISE [id number] -1995 M Exm Date: JUL 08, 2024@10:40 Req Phys: GLADYS JOSEPH Pat Loc: [facility] PCP (Req'g Loc) Img Loc: [facility] Service: Unknown [address] [id number] (Case [id number] COMPLETE) SPINE CERVICAL MIN 4 OR 5 VIEWS (RAD Detailed) CPT:54206 Reason for Study: cervicalgia Clinical History: Report Status: Verified Date Reported: JUL 08, 2024 Date Verified: JUL 08, 2024 Heavy Equipment Rental Associate E-Sig:/ES/POPEYE MEREDITH Report: INDICATION: cervicalgia COMPARISON: None TECHNIQUE: Cervical spine 3 views Impression: C6 and 7 are not well evaluated on the lateral projections due to overlying structures. The lateral masses of C1 and C2 are grossly aligned. No abnormal thickening of the prevertebral soft tissues. Visualized vertebral body heights and intervertebral disc spaces are normal. Primary Interpreting Staff: POPEYE MEREDITH RADIOLOGIST (Heavy Equipment Rental Associate) /POPEYE PARMAR [facility] Jul 08, 2024 10:40 AM SHOULDER,RIGHT,2 O R MORE VIEWS: WISEHUMBERTO PANGMOND [facility] [id number] -1995 M Exm Date: JUL 08, 2024@10:40 Req Phys: GLADYS JOSEPH Pat Loc: [facility] PCP (Req'g Loc) Img Loc: [facility] Service: [address] [id number] (Case [id number] COMPLETE) SHOULDER,RIGHT,2 OR MORE VIEWS (RAD Detailed) CPT:83926 Proc Modifiers : RIGHT Reason for Study: bilateral shoulder pain Clinical History: Report Status: Verified Date Reported: JUL 08, 2024 Date Verified: JUL 08, 2024 Heavy Equipment Rental Associate E-Sig:/ES/POPEYE MEREDITH Report: , [id number] INDICATION: bilateral shoulder pain COMPARISON: None TECHNIQUE: Bilateral shoulder multiple views Impression: No acute displaced fracture. No significant malalignment. Primary Interpreting Staff: POPEYE MEREDITH RADIOLOGIST (Heavy Equipment Rental Associate) /POPEYE PARMAR [facility] Jul 08, 2024 10:40 AM SHOULDER,LEFT,2 OR MORE VIEWS: WISE,REVA [facility] [id number] -1995 M Exm Date: JUL 08, 2024@10:40 Req Phys: GLADYS JOSEPH Pat Loc: [facility] PCP (Req'g Loc) Img Loc: [facility] RADIOLOGY Service: [address] [phone] (Case [id number] COMPLETE) SHOULDER,LEFT,2 OR MORE VIEWS (RAD Detailed) CPT:87484 Reason for Study: bilateral shoulder pain Clinical History: Report Status: Verified Date Reported: JUL 08, 2024 Date Verified: JUL 08, 2024 Heavy Equipment Rental Associate E-Sig:/ES/POPEYE MEREDITH Report: , [id number] INDICATION: bilateral shoulder pain COMPARISON: None TECHNIQUE: Bilateral shoulder multiple views Impression: No acute displaced fracture. No significant malalignment. Primary Interpreting Staff: POPEYE MEREDITH, RADIOLOGIST (Ora) /[facility] Encounter Notes: All associated encounter notes This section contains the clinical notes associated to the Encounter. Date/Time Encounter Note(s) Provider Source Jul 16, 2024 01:05 PM PRIMARY CARE NOTE: LOCAL TITLE: [facility] TRAVELING NOTE ST STANDARD TITLE: PRIMARY CARE NOTE DATE OF NOTE: JUL 16, 2024@13:05 ENTRY DATE: JUL 16, 2024@13:05:45 AUTHOR: MAYELIN POLLARD EXP COSIGNER: URGENCY: STATUS: COMPLETED Traveling/Relocating Care Coordination Call to , verified full name and date of . states his plans changed and he is no longer living in [place] or [place]. States he would like to establish care with PCP in [place] Notification sent to PCMM Coordinator Petty Pennington was educated on the Traveling/[place] Program: 1. If you will require care while traveling, you must contact your Primary Care Provider who will enter a consult to coordinate care. Always notify your Provider prior to traveling and provide your temporary address at least 10 days before travel. 2. If you are permanently relocating, notify the Primary Care Provider who will enter a Traveling/Relocating Consult to transfer care to the new location. Your Primary Care Provider is responsible for all care until you have established care at the new [facility]. 3. For Medications, obtain enough refills to last until you return to your permanent residence. By Providing the pharmacy of your temporary address medicatons can be mailed. The alternate VA may dispense a ONE TIME 7-10 day supply of some active medications. You should receive your full refills from your home VA. 4. For non-urgent care contact your Primary Care Provider who will notify Traveling [place] Coordinator by entering a Traveling/Relocating Consult for specific care needs. You will be contacted by the closest [place] facility to the address you provided to assist with care coordination. For emergencies go to the nearest ER and let them know you are a . After you are stable notify the [place] Affairs Notification Hotline ([phone]) within 72hrs. was provided the contact to reach Traveling Coordinator for future needs at [phone]. [place] verbalize understanding and agrees with plans. /naga/ MAYELIN POLLARD REGISTERED NURSE, HOME TELEHEALTH COORDINATOR Signed: 07/16/2024 13:09 Receipt Acknowledged By: 07/16/2024 14:50 /naga/ MARLON SALDANA PCMM COORDINATOR MAYELIN POLLARD [facility]
--- OUTSIDE RECORDS SUMMARY | 2025-01-19 07:45 | XMS_ITS | Clinical Summary ---
Author Organization [facility] Address [address] [address] Care Team Providers Care Snow Removal/Plowing Name Role Phone Bob Shea MD Unavailable [phone] Source Comments [facility],non-owned Affiliates and Associated Physician Practices is amultiple site organization consisting of ambulatory clinics and hospital sitesin [place], [place], [place] and [place]. This disclosure is being madepursuant to the Care Everywhere program and may not contain all information available regarding this patient. Last updated 18.[facility] Allergies No known active allergies Medications * Be aware that medications may not be up to date on this document. Alwaysverify current medications with the patient. PARoxetine (Paxil) 10 MG tablet Take 1 (one) tablet by mouth once daily Once daily Active vitamin D3 (Cholecalciferol ) 25 MCG (1000 UNITS) tablet Take 1 (one) tablet by mouth once daily Once daily Active Active Problems Problem Noted Date Diagnosed Date VANDANA (obstructive sleep apnea) 12/24/2023 Overview (12/24/2023): Mild VANDANA Date: 12/15/23 diag psg RDI: 13.1 AHI (3%a): 12.6 AHI (4%): 7.5 Min 02 sat: 75 Auto-Pap 6-15 cmh20 Social History Tobacco Use Types Packs/Day Years Used Date Smoking Tobacco: Former Cigarettes Q uit: 07/14/2019 Smokeless Tobacco: Never Alcohol Use Standard Drinks/Week Comments Not Currently 0 (1 standard drink = 0.6 oz pur e alcohol) AUDIT-C Answer Date Recorded Q1: How often do you have a drink containing alc ohol? Monthly or less 08/29/2023 Q2: How many drinks containi ng alcohol do you have on a typical day when you are drinking? 1 or 2 08/29/2023 Q3: How often do you have si x or more drinks on one occasion? Never 08/29/2023 Sex and Gender Information Value Date Recorded Sex Assigned at Not on file Legal Sex Male 8:19 PM SORTER PACKER Gender Identity Not on file Sexual Orientation Not on file Last Filed Vital Signs Vital Sign Reading Time Taken Comments Blood Pressure 114/66 11/27/2023 8:32 AM CDT Pulse 60 11/27/2023 8:32 AM CDT Temperature 36.9 C (98.4 F) 08/29/2023 8:28 PM SORTER PACKER Respiratory Rate 16 08/29/2023 8:28 PM SORTER PACKER Oxygen Saturation 97% 11/27/2023 8:32 AM CDT Inhaled Oxygen Concentration - - Weight 102.1 kg (225 lb) 11/27/2023 8:32 AM CDT Height 167.6 cm (5' 6) 11/27/2023 8:32 AM CDT Body Mass Index 36.32 11/27/2023 8:32 AM CDT Plan of Treatment Health Maintenance Due Date Last Done Comments HIV SCREENING 2011 HEPATITIS C SCREENING 07/11/2014 DTAP/TDAP/TD VACCINES (1 - Tdap) 2015 HEPATITIS B VACCINE (1 of 3 - 19+ 3-dose series) 2015 COVID-19 VACCINE ( season) 2024 DEPRESSION SCREENING 07/14/2024 INFLUENZA VACCINE (#1) 2025 2, 04/13/2019, 06/26/2018, Additional history exists ZOSTER VACCINE (1 of 2) 2046 HIB VACCINE Aged Out No longer eligi ble based on patient's age to complete this topic HPV VACCINE Aged Out No longer eligi ble based on patient's age to complete this topic MENINGOCOCCAL (Group B) VACCINE SHARED DECISION-MAKING Aged Out No longer eligible based on patient's age to complete this topic MENINGOCOCCAL GROUPS A/C/Y/W VACCINE Aged Out No longer eligible based on patient's age to complete this topic PNEUMOCOCCAL VACCINE Aged Out No long er eligible based on patient's age to complete this topic Insurance [facility] [employer] PARTY LIABILITY WC PAYOR GENERIC Care Teams Snow Removal/Plowing Relationship Specialty Start Date End Date Bob Shea MD [facility] [address] [place] [address] Internal Medicine Sleep Medicine 11/27/23
--- OUTSIDE RECORDS SUMMARY | 2025-01-19 07:45 | XMS_ITS | Encounter Summary ---
Author Name [facility] [place] Address [address] [place] [address] Care Team Providers Care Treasury Representative Name Role Phone GREGORY HARTLEY Primary Care Provider Unavailabl MUKESH Lieberman Primary Care Provider Unavailab le Selected Encounter This section includes the information on record at [place] for the Encounter. Date/Time Encounter Type Encounter Description Reason Provider Source Mar 08, 2024 07:30 AM OFFICE O/P NEW MOD 45 MIN PRIMARY CARE/MEDICINE ICD-10-CM Z00.8 Encounter for other general examination NAEEM,GREGORY IHE Encounter Template Text not used by [facility] Assessments - Encounter Diagnoses This section includes the primary and secondary diagnoses documented for the Encounter. Date/Time Primary/Secondary Diagnosis Diagnosis Name Provider Source Mar 08, 2024 08:19 AM PRIMARY Encounter for other general examination NAEEM,GREGORY [facility] Mar 08, 2024 08:19 AM SECONDARY Depression, unspecified NAEEM,GREGORY [facility] Mar 08, 2024 08:19 AM SECONDARY Epididymitis NAEEM,GREGORY [facility] Mar 08, 2024 08:19 AM SECONDARY Hyperlipidemia, unspecified NAEEM,GREGORY [facility] Mar 08, 2024 08:19 AM SECONDARY Obesity, unspecified NAEEM,GREGORY [facility] Plan of Treatment: Future Appointments (+ 6 months) and Future Tests (+/- 45 days) The Plan of Treatment section includes future care activities for the patient from all [facility]. This section includes future appointments and future orders which are active, pending or scheduled. Future Appointments This section includes appointments that were scheduled to occur 6 months from the date of the Encounter, up to a maximum of 20 appointments. The data comes from all [facility]. Appointment Date/Time Appointment Type Appointme nt Facility Name Mar 18, 2024 02:00 PM AMBULATORY - NONE [facility] Mar 25, 2024 02:00 PM AMBULATORY NONE [facility] Mar 31, 2024 01:00 PM AMBULATORY - MEDICINE [facility] Apr 12, 2024 01:00 PM AMBULATORY - NONE [facility] Apr 19, 2024 03:00 PM AMBULATORY - MEDICINE [facility] Apr 21, 2024 08:30 AM AMBULATORY - [facility] Apr 23, 2024 11:00 AM AMBULATORY - MEDICINE [facility] Apr 30, 2024 09:00 AM AMBULATORY - PS[facility]CHIATRY [facility] Jul 08, 2024 03:30 PM AMBULATORY - MEDICINE [facility] Jul 19, 2024 10:00 AM AMBULATORY - PSYCHIATRY [facility] Jul 20, 2024 08:00 AM AMBULATORY - PSYCHIATRY [facility] Aug 03, 2024 07:30 AM AMBULATORY - REHAB MEDICIN E [facility] Aug 13, 2024 09:30 AM AMBULATORY - REHAB MEDICIN E [facility] Aug 16, 2024 01:30 PM AMBULATORY - MEDICINE [facility] Sep 07, 2024 01:30 PM AMBULATORY - PSYCHIATRY [facility] Active, Pending, and Scheduled Orders This section includes a listing of several types of active, pending, and scheduled orders, including clinic medications orders, diagnostic test orders, procedure orders and consult orders; where the start date of the order is 45 days before the date of the Encounter or 45 days after the date of theEncounter. The data comes from all [facility]. Test Date/Time Test Type Test Details Facility Name Mar 08, 2024 12:00 AM Laboratory - Chemi stry Order HEP C AB, TOTAL BLOOD in GOLD TOP TUBE SERUM SP ONCE [facility] Lab Results: +/- 30 days of the encounter This section includes the Chemistry and Hematology Lab Results on record with [place] for the patient. Radiology Reports and Pathology Reports are provided separately, in subsequent sections. Lab Results This section contains the Chemistry/Hematology Results that were resulted 30 days before or 30 daysafter the date of the Encounter. Date/Time Source Result Type Result - Unit Interpretation Reference Range Specimen Type Comment Mar 02, 2024 08:23 AM [facility] CBC + DIFF BLOOD Specimen Type: BLOOD No comment entered. Ordering Provider: GREGORY HARTLEY Report Released Date/Time: Feb 12, 2024 03:37 PM Reporting Lab: [facility] [id number] [facility] [id number] Performing Lab: [facility] [address] [facility] [phone] HGB 16.2 g/dL 13.3-17.7 HCT 48.3 39.0-52.0 MCV 91.3 fL 80.0-99.0 MCH 30.6 pg 27.0-34.0 MCHC 33.5 g/dL 32.0-36.0 PLT 282 10*3/uL 150-440 RDW 12.2 12.0-15.0 LYMPHOCYTES % (AUTO) 24.5 20.0-40.0 LYMPHOCYTES # (AUTO) 1560 /uL 600-4800 RBC 5.29 10*6/uL 4.40-5.90 WBC 6.37 10*3/uL 4.50-11.00 MONOCYTES % (AUTO) 6.0 2.0-10.0 MONOCYTES # (AUTO) 380 /uL 0-950 EOSINOPHILS % (AUTO) 11.1 H 1.0-6.0 EOSINOPHILS # (AUTO) 710 /uL H 0-500 BASOPHILS % (AUTO) 2.0 H 0.0-1.0 BASOPHILS # (AUTO) 130 /uL 0-200 NEUTROPHILS % (AUTO) 56.2 41.0-85.0 NEUTROPHILS # (AUTO) 3580 /uL 2507-9786 MPV 11.5 fL 9.0-12.4 IG # 10 /uL 0-60 NRBC# 0 /uL 0-0 IG % 0.2 0.0-0.9 NRBC% 0.0 0.0-0.0 Mar 02, 2024 08:23 AM [facility] ANION/OSMOLAL GAP PANEL SERUM Specimen Type: SERUM Comment: eGFR CKD-EPI eGFR calculated using the 2020 RIE-TZQ-xxlnylylvi equation; units of measure are mL/min/1.73m~2. eGFR can only be interpreted if creatinine is in steady state and is not valid in patients with acute kidney injury and in patients on dialysis. CKD is diagnosed based on abnormalities of kidney structure or function, present for >3 months, with implications for health and disease.CKD is classified and stage based on cause, eGFR and albuminuria, quantified as urine albumin to creatinine ratio. eGFR staging of CKD Stage G1 eGFR >90 mL/min/1.73m~2 Stage G2 eGFR 60-89 mL/min/1.73m~2 Stage G3a eGFR 45-59 mL/min/1.73m~2 Stage G3b eGFR 30-44 mL/min/1.73m~2 Stage G4 eGFR 15-29 mL/min/1.73m~2 Stage G5 eGFR <15 mL/min/1.73m~2 Ordering Provider: GREGORY HARTLEY Report Released Date/Time: Feb 12, 2024 03:37 PM Reporting Lab: [facility] [address] [facility] [phone] Performing Lab: [facility] [id number] [place] [phone] UREA NITROGEN 14 mg/dL 5-25 GLUCOSE 95 mg/dL 70-110 SODIUM 137 mmol/L 136-146 POTASSIUM 4.3 mmol/L 3.5-5.3 CARBON DIOXIDE 29.6 mmol/L 24-31 CHLORIDE 101 mmol/L 95-110 EGFR 99 >=60 CREATININE idms 1.06 mg/dL 0.52-1.28 ANION GAP Serum 6.4 mmol/L 3-Mar 02, 2024 08:23 AM [facility] METABOLIC PANEL SERUM Specimen Type: SERUM Comment: eGFR CKD-EPI eGFR calculated using the 2020 AHL-RNL-qnernghvmy equation; units of measure are mL/min/1.73m~2. eGFR can only be interpreted if creatinine is in steady state and is not valid in patients with acute kidney injury and in patients on dialysis. CKD is diagnosed based on abnormalities of kidney structure or function, present for >3 months, with implications for health and disease.CKD is classified and stage based on cause, eGFR and albuminuria, quantified as urine albumin to creatinine ratio. eGFR staging of CKD Stage G1 eGFR >90 mL/min/1.73m~2 Stage G2 eGFR 60-89 mL/min/1.73m~2 Stage G3a eGFR 45-59 mL/min/1.73m~2 Stage G3b eGFR 30-44 mL/min/1.73m~2 Stage G4 eGFR 15-29 mL/min/1.73m~2 Stage G5 eGFR <15 mL/min/1.73m~2 Ordering Provider: GREGORY HARTLEY Report Released Date/Time: Feb 12, 2024 03:37 PM Reporting Lab: [address] [phone] Performing Lab: [address] [address] BILIRUBIN, TOTAL 0.6 mg/dL 0.2-1 ASPARTATE AMINOTRANSFERASE 20 U/L 13-35 ALKALINE PHOSPHATASE 51 U/L 33-94 ALANINE AMINOTRANSFERASE 26 U/L 7-45 CALCIUM 10.0 mg/dL 8.4-10.2 ALBUMIN 4.5 g/dL 3.2-4.8 Mar 02, 2024 08:23 AM [facility] LIPID PANEL SERUM Specimen Type: SERUM Comment: eGFR CKD-EPI eGFR calculated using the 2020 AOD-XBR-wksfsfogwo equation; units of measure are mL/min/1.73m~2. eGFR can only be interpreted if creatinine is in steady state and is not valid in patients with acute kidney injury and in patients on dialysis. CKD is diagnosed based on abnormalities of kidney structure or function, present for >3 months, with implications for health and disease.CKD is classified and stage based on cause, eGFR and albuminuria, quantified as urine albumin to creatinine ratio. eGFR staging of CKD Stage G1 eGFR >90 mL/min/1.73m~2 Stage G2 eGFR 60-89 mL/min/1.73m~2 Stage G3a eGFR 45-59 mL/min/1.73m~2 Stage G3b eGFR 30-44 mL/min/1.73m~2 Stage G4 eGFR 15-29 mL/min/1.73m~2 Stage G5 eGFR <15 mL/min/1.73m~2 Ordering Provider: GREGORY HARTLEY Report Released Date/Time: Feb 12, 2024 03:37 PM Reporting Lab: [address] [address] Performing Lab: [address] [address] CHOLESTEROL 229 mg/dL H <=200 TRIGLYCERIDE 256 mg/dL H 40-160 HDL 56.5 mg/dL >=40 LDL CHOLESTEROL, CALC 121 mg/dL <130 CHOL/HDL RATIO 4.1 Mar 02, 2024 08:23 AM [facility] THYROID STIMULATING HORMONE (TSH3 ULTRA) SERUM Specimen Type: SERUM No comment entered. Ordering Provider: GREGORY HARTLEY Report Released Date/Time: Feb 12, 2024 03:37 PM Reporting Lab: [address] [address] Performing Lab: [address] [address] THYROID STIMULATING HORMONE (TSH3 ULTRA) 1.059 u [IU]/mL 0.55-4.78 Mar 02, 2024 08:23 AM [facility] URINALYSIS ONLY URINE Specimen Type: URINE No comment entered. Ordering Provider: GREGORY HARTLYE Report Released Date/Time: Feb 12, 2024 03:37 PM Reporting Lab: [address] [address] Performing Lab: [address] [address] URINE SPECIFIC GRAVITY 1.023 1.001-1.0 29 URINE LEUKOCYTE ESTERASE Negative Negati ve-25 URINE APPEARANCE Clear Clear URINE BILIRUBIN Negative mg/dL Negative URINE COLOR Yellow Yellow URINE GLUCOSE Normal mg/dL Normal URINE KETONES Negative mg/dL Negative-Tr maia URINE NITRITE Negative Negative URINE OCCULT BLOOD Negative mg/dL Negati ve-0.03 URINE PROTEIN Negative mg/dL Negative-20 URINE UROBILINOGEN Normal mg/dL Normal URINE PH 6.5 5.0-8.0 Vital Signs: All taken on the encounter date This section contains inpatient and outpatient Vital Signs collected on the date of the Encounter. Date/Time Temperature Pulse Blood Pressure Respiratory Rate SP02 Pain Height Weight Body Mass Index Source Mar 08, 2024 07:40 AM 98.3 56 123/75 20 99 4 66 231.3 37 [facility] Social History: Smoking Status (Most current) and Tobacco Use (All prior to encounter date) This section includes the most current, and the historical, smoking and tobacco- related health factors from the [place] facility where the Encounter took place. Current Smoking Status This section includes the most current smoking, or tobacco-related health factor, from the [place] facility where the Encounter took place. Date/Time Current Smoking Status Comment Facil ity Jul 29, 2019 08:45 AM VA-TOBACCO USE DREDGE OR BARGE SHORE HAND YES [facility] Tobacco Use History This section includes a history of the smoking, or tobacco-related health factors, that were collected on or before the date of the Encounter. The data comes from the [place] facility where the Encounter took place. Date/Time Smoking Status/Tobacco Use Comment F acility Jul 29, 2019 08:45 AM VA-TOBACCO USE ADVICE [facility] Jul 29, 2019 08:45 AM VA-TOBACCO USE DREDGE OR BARGE SHORE HAND YES [facility] Jul 29, 2019 08:45 AM VA-TOBACCO USE MED NOTIFY PROVIDER Mehrdad Gu [facility] Jul 29, 2019 08:45 AM VA-TOBACCO USE WI 30 MIN OF WAKEUP [facility] Jul 29, 2019 08:45 AM VA-TOBACCO USER EVERY DAY [facility] Encounter Notes: All associated encounter notes This section contains the clinical notes associated to the Encounter. Date/Time Encounter Note(s) Provider Source Mar 08, 2024 04:19 PM NONVA NOTE: LOCAL TITLE: OUTSIDE REPORTS STANDARD TITLE: NONVA NOTE DATE OF NOTE: MAR 08, 2024@16:19 ENTRY DATE: MAR 08, 2024@16:19:09 AUTHOR: GREGORY HARTLEY COSIGNER: URGENCY: STATUS: COMPLETED Sending Facility Information Name: [facility] Address: [address] [place] [address] Patient Information Name: REVA WISE : 1995 Sex: M SSN: [id number] Document: US Scrotum Status: F Study\Observation Date: 03/07/2024 13:54:14 Dictating Physician: LUCIUS DELEON Ordering Physician: MENDEZ PENALOZA Physician: PROCEDURE: US SCROTUM COMPARISON: None. INDICATIONS: R testicular pain since this AM, cremaster intact b/l, externally nml apperaing no trauma TECHNIQUE: The right and left testicles and other scrotal contents were evaluated with greyscale imaging, spectral and color Doppler. Arterial inflow and venous outflow were assessed. CLINICAL: PRIORS: No. INJURY: No. CANCER: No. SURGERY: No. FINDINGS: RIGHT TESTICLE: The testicle measures 4.1 x 2.9 x 2.2 cm. No intratesticular masses. ARTERIAL DUPLEX: Normal blood flow. VENOUS DUPLEX: Normal blood flow. LEFT TESTICLE: The testicle measures 4.2 x 2.8 x 2.3 cm. No intratesticular masses. ARTERIAL DUPLEX: Normal blood flow. VENOUS DUPLEX: Normal blood flow. RIGHT EPIDIDYMIS: The epididymis is hypervascular indicating epididymitis. LEFT EPIDIDYMIS: The epididymis appears unremarkable. VARICOCELE: None HYDROCELE: None OTHER: Negative. CONCLUSION: 1. Potentially hypervascular right epididymis, suggesting epididymitis. Dictated by: Lucius Deleon M.D. on 03/07/2024 at 14:12 Approved by: Lucius Deleon M.D. on 03/07/2024 at 14:14 '[facility] [place] * * * F I N A L * * * Dictated by: Lucius Deleon MD Electronically signed by: Lucius Deleon MD Transcribed by:ID , , , S: 03/07/2024 14:15 * * * F I N A L * * * Click here to access the PACs images This document was sent to you because information provided to the HIE indicates that you have a treatment relationship with the patient. If you do not have a current treatment relationship with the patient, contact the [facility] Privacy Hotline at [phone] to report/resolve the error. Sending Facility Information Name: [facility] Address: [address] [place] [address] Patient Information Name: REVA WISE : 1995 Sex: M SSN: [id number] Document: ED Physician Notes Status: F Study\Observation Date: 03/07/2024 13:11:13 Dictating Physician: MENDEZ PENALOZA Ordering Physician: SHANTE Physician: Patient: REVA WISE Age: 28 years Sex: M : 1995 Active Insurance: [facility] [id number] Admitting MD: Location: [facility] ED: : PCP: Chuck Burton Author: Mendez Penaloza MD Date/Time Admit Date: 03/07/24 12:49 Provider Contact Time: 03/07/2024 13:04 Mode of Arrival Mode of Arrival: Ambulatory Chief Complaint Chief Complaint ED: RIGHT SIDE TESTICULAR PAIN SINCE 0700 THIS MORNING. DENIES DYSURIA. STATES GETS A SHOOTING PAIN WHEN MOVING AROUND. 03/07/24 12:51 Subjective Nursing Assessment: ALERT, ORIENTEDMILD DISTRESS (03/07/24 12:51) History of Present Illness 28-year-old male with no history coming in with right-sided testicular pain that started this morning Denies any urinary symptoms, pain is constant, more the posterior aspect of the right testicle Has never had this pain before, atraumatic, no other symptoms Review of Systems 10 systems reviewed and negative aside from that mentioned in HPI and MDM Physical Exam First Vitals Signs Blood Pressure: 134 / 84 (03/07/24 12:51) Heart Rate: 83 (03/07/24 12:51) Respiratory Rate: 18 (03/07/24 12:51) SPO2: 100% (03/07/24 12:51) Oxygen Method: Room air (03/07/24 12:51) Temperature Temporal Artery 36.7 (03/07/24 12:51) GEN: No acute distress, alert RESP: No respiratory distress, breathing comfortably CV: Regular rate ABD: Non-distended EXT:Well perfused : Cremaster intact bilaterally, normal external appearing scrotum and testes, tender palpation posterior aspect right testicle NEURO: Appropriate Most Recent Vitals T: 36.7 degree C (Temporal Artery) HR: 83 (Monitored) RR: 18 BP: 134/84 SpO2: 100% Oxygen Method: Room air WT: 103.7 kg Emergency Department Orders Laboratory & Blood: Urinalysis UA Rflx Microscop Cult if Ind (Urinalysis UA Rflx Microscop Cult if Ind) GC (Neisseria gonorrhoeae) APTIMA (GC (Neisseria gonorrhoeae) APTIMA) Radiology: US Scrotum (US Scrotum) Laboratory Results No qualifying data available Medical Decision Making 28-year-old male with no history coming in with 1 day of right testicular pain, no urinary symptoms, he is comfortable and well-appearing on exam with normal vitals Cremaster intact bilaterally, lower suspicion for testicular torsion, no evidence on this exam with intact cremaster Does have some posterior tenderness to the right testicle, suspect likely epididymitis, possible hydrocele, orchitis Will check urinalysis, GC, scrotal ultrasound, Motrin for pain and reassess ED Course Ultrasound is consistent with epididymitis, possible infectious source includes STI or enteric organisms, sent off GC, will treat patient for both at this time as source is uncertain, will treat with ceftriaxone IM as well as a course of Levaquin Motrin and Tylenol as needed for pain, otherwise appropriate for PMD follow-up Final Diagnosis Diagnosis this visit: Epididymitis (N45.1) 03/07/2024 15:26 Discharge Problem List/Past Medical History Chronic Asthma Historical No qualifying data Allergies No Known Medication Allergies Home Medications No active home medications Electronically Signed By: Mendez Penaloza MD On 03/08/24 13:49 Co Signature By: Modified Signature By: Mendez Penaloza MD On 03/08/24 13:49 /naga/ GREGORY HARTLEY MD PHYSICIAN Signed: 03/08/2024 16:19 GREGORY HARTLEY [facility] Mar 08, 2024 07:35 AM PRIMARY CARE H & P NOTE: LOCAL TITLE: PRIMARY CARE HISTORY & PHYSICAL STANDARD TITLE: PRIMARY CARE H & P NOTE DATE OF NOTE: MAR 08, 2024@07:35 ENTRY DATE: MAR 08, 2024@07:35:49 AUTHOR: GREGORY AHRTLEY COSIGNER: URGENCY: STATUS: COMPLETED Verified REVA WISE/ Jul 0172 Luciana mena phone #: Outside Providers:none Subjective: no Flag CC: Patient here for Health Maintenance & Disease Prevention (Vesting)exam Patient has [place] here to his [place]. Was seen yesterday at outside hospital for epididymitis and was prescribed Levaquin 500 mg daily for 10 days. He was not able to get it and would [facility]. Has history of depression for which he has [facility] would like to get established locally with mental health. Was taking 30 mg of paroxetine which has been reduced to 10 mg due to side effects of erectile dysfunction. No other concerns today FAMILY HISTORY: Cancer: denies Heart: denies Diabetes: denies Hypertension: denies ETOH abuse: denies H/O Colon CA: denies Has 1 brother,,alive and well. No sister. Mother alive and well. Father , unknown age, no contact since patient was 13 years old. 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 --STATUS-- --DUE DATE-- --LAST DONE-- COVID-19 Immunization DUE NOW DUE NOW unknown Influenza Immunization RESOLVED 04/13/2024 04/13/2023 Pneumococcal PPSV23 (Pneumovax) N/A Pneumococcal Conjugate Vaccine N/A (PCV15/PCV20) Herpes Zoster (Shingles) Vaccine N/A unknown Human Papillomavirus (HPV) N/A Meningococcal ACWY Immunization N/A Meningococcal B Immunization N/A Td / Tdap Immunization RESOLVED 02/03/2025 02/03/2015 Tdap Immunization DONE 02/03/2015 Allergies: Patient has answered NKA Active Outpatient Medications (excluding Supplies): Active Non-VA Medications Status 1) Non-VA IBUPROFEN 400MG TAB 400MG MOUTH EVERY DAY ACTIVE NEEDED Review of systems: Constitutional: denies: fevers, chills, night sweats, fatigue Derm: denies: itching, rashes, changes in moles, lumps or masses Eyes: denies: blurred vision, double vision, drainage, pain Respiratory: denies: sob, cough, hemoptysis, CV: denies: chest pain, palpitations, edema, GI: denies: abdominal pain, nausea, vomiting, blood in stool, constipation, diarrhea : denies: hematuria, dysuria, frequency, urgency Neuro: denies: tremors, paresthesias, numbness, dizziness, syncope, seizures Endo: denies DM, 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: Labs: WBC 6.37 k/uL Feb 08:23 HGB 16.2 g/dL Feb 08:23 HCT 48.3 % Feb 08:23 PLT 282 k/uL Feb 08:23 NA 137 mmol/L Feb 08:23 K 4.3 mmol/L Feb 08:23 CR 1.06 mg/dL Feb 08:23 Calcium: 10.0 mg/dL Feb 08:23 AlkPhos: 51 U/L Feb 08:23 ALT: 26 U/L Feb 08:23 AST: 20 U/L Feb 08:23 CL 101 mmol/L Feb 08:23 CO2 29.6 mmol/L Feb 08:23 BUN 14 mg/dL Feb 08:23 GLUCOSE 95 mg/dL Feb 08:23 HGB A1C 5.1 % Jul 09:29 CHOLESTEROL 229 mg/dL H Feb 08:23 LDL 121 mg/dL Feb 08:23 HDL 56.5 mg/dL Feb 08:23 TRIGLYCERIDE 256 mg/dL H Feb 08:23 TSH 1.059 uIU/mL Feb 08:23 Urinalysis Appearance Clear Feb 08:23 Color Yellow Feb 08:23 PH 6.5 Feb 08:23 Protein Negative mg/dL Feb 08:23 Glucose Normal Feb 08:23 Occult blood Negative Feb 08:23 BP: 123/75 (03/08/2024 07:40) PULSE: 56 (03/08/2024 07:40) RESP: 20 (03/08/2024 07:40) TEMP: 98.3 F [36.8 C] (03/08/2024 07:40) HT: 66 in [167.6 cm] (03/08/2024 07:40) WT: 231.3 lb [104.92 kg] (03/08/2024 07:40) BMI: 37.4 General: 28 old obese MALE in NAD. Alert & Oriented. Head: No abnormalities. Eyes: Conjunctiva clear. Cornea and sclera normal. No icterus. Neck: Neck supple. No thyromegaly. Lungs: CTA Bilateral, Symmetrical chest movement Heart: RRR, S1-S2 normal Extrem: Steady gait. No edema Neuro: non focal Assessment/Plan: Discussed with and pt agrees to plan General examination: Done Hyperlipidemia: Extensive discussion about his diet done. Patient has been referred to dietitian for further management and education. Obesity : as above Depression: Stable on current medications no SI/HI referral to mental health ordered Epididymitis: Ordered Levaquin as requested by the emergency room MD locally. HEALTH MAINTAINENCE:no iz today WHOLE HEALTH EDUCATION /brochure given PROVIDED discussed diet/physical health, BFA FOLLOW UP: In 12 months/as needed Goals for LDL w/DM less than 100 BARRIERS TO UNDERSTANDING: NONE PLAN WAS DISCUSSED WITH PATIENT AND PATIENT WAS ABLE TO ASK QUESTIONS. PT UNDERSTANDS INSTRUCTIONS, if symptoms worsen, pt knows to return to clinic for further evaluation PT EDUCATION: DISCUSSED Medications AND RECONCILED including over the counter and herbal as well as those prescribed by Non-VA providers. also advised pat. to carry his list of meds. with them at all times. Verbal informed consent obtained. The patient agreed to have blood tests, procedures and change in medications as ordered below. Side effects, risks and benefits and alternatives discussed. Lab results discussed with patient as well with Recommendations made accordingly. This document has been prepared with voice recognition software. Please excuse unusual errors. - Sections of this note may have been produced from templates and/or copied from other notes to respectively provide uniformity of presentation and/or clarity upon review that certain elements of the medical record have been taken into account. Hepatitis C Testing: Patient has given verbal consent for HCV antibody testing. An HCV lab test has been ordered - see orders tab. Return to Clinic Order: Return to Clinic (RTC) placed, see orders Outpt. Medication Reconciliation: MEDICATION REVIEW: - I have reviewed the EMLR including active/pending//non-VA remote medications and asked the patient about over the counter supplements and any new non-VA medications that have been added or removed from his medication list. - MEDICATION RECONCILIATION: - No Discrepancies identified - ACTION: Was medication education provided for new medications or changes to medications? (including medication name, dose, route, reason for use, and potential side effects). No new medications or medication changes during this encounter. - Updated Medication List Given to patient. Patient/caregiver advised to carry updated medication list with them at all times in case of emergency. HIV Screen (Non-Risk Based): The patient declines to be tested for HIV infection. Hepatitis B Immunization: Defer due to a PRECAUTION Reason: has received in the past TBI Screening: The was not deployed in support of post-03/24 operations. COVID-19 Immunization: The patient is not likely to benefit from COVID-19 immunization. Reason: not available ORDERS TODAY - * ANION/OSMOLAL GAP PANEL BLOOD in GOLD TOP TUBE SERUM SP ONCE START DATE: Mar 08, 2025 * LIPID PANEL BLOOD in GOLD TOP TUBE SERUM SP START DATE: Mar 08, 2025 * METABOLIC PANEL BLOOD in GOLD TOP TUBE SERUM SP START DATE: Mar 08, 2025 * CBC + DIFF BLOOD in LAVENDER TOP TUBE SP ONCE START DATE: Mar 08, 2025 * URINALYSIS W/REFLEX TO C&S URINE-SPOT URINE (Spot) SP START DATE: Mar 08, 2025 * HEPATITIS B SCREENING PANEL BLOOD in GOLD TOP TUBE SERUM SP ONCE START DATE: Mar 08, 2025 * HEMOGLOBIN A1C PANEL BLOOD in LAVENDER TOP TUBE SP ONCE START DATE: Mar 08, 2025 * THYROID STIMULATING HORMONE (TSH3 ULTRA) BLOOD in GOLD TOP TUBE SERUM SP ONCE START DATE: Mar 08, 2025 * LEVOFLOXACIN TAB 500MG TAKE ONE TABLET BY MOUTH EVERY DAY Medication prescribed by Non-VA provider. by Non-VA provider. Indication: UNKNOWN * PAROXETINE TAB 10MG TAKE ONE TABLET BY MOUTH EVERY DAY Medication prescribed by Non-VA provider. * MH-PSYCHIATRY OUTPT -([facility]) Cons Movie Stunt Performer's Choice * NUTRITION CONSULT OUTPT -([facility]) Cons Movie Stunt Performer's Choice * Return to [facility]-PACT TEAM 1 on or around ( Apr 06, 2025 ) for a total of 1 appointment(s) Prerequisites: Face to Face Appt, VVC Appropriate/Offer Option * HEP C AB, TOTAL BLOOD in GOLD TOP TUBE SERUM SP ONCE START DATE: Mar 08, 2024 /naga/ GREGORY HARTLEY MD PHYSICIAN Signed: 03/08/2024 08:19 [facility]
--- OUTSIDE RECORDS SUMMARY | 2025-01-19 07:45 | XMS_ITS | Continuity of Care Document ---
Author Name [facility] Organization [facility] Care Team Providers Care Funeral Director/Embalmer/Owner Name Role Phone [facility] Unavailable Unavailable Problems Combined list of problems from Department of Defense and Veterans Affairs facilities. It does not include entries that were removed or entered in error. Problem Status Onset Date Problem Type Date of Resolution Comments Source Ankle pain Active Condition [facility] Anxiety Active Condition [facility] Back pain Active Condition [facility] Bilateral hearing loss Active Condition [facility] Bilateral knee pain Active Condition [facility] Carotid bruit Active Condition [facility] Cervicalgia Active Condition [facility] Chronic pain syndrome Active Condition [facility] Cough Active Condition [facility] Depression Active Condition [facility] Depressive disorder Active Condition [facility] Divorce proceedings pending Active Condition [facility] Eczema Active Condition [facility] High risk sexual behavior Active Condition [facility] Hyperlipidemia Active Condition [facility] Low back pain Active Condition [facility] Lumbago Active Condition [facility] Murmur Active Condition [facility] Obesity Active Condition [facility] Obstructive sleep apnea Active Condition [facility] Pain in both knees Active Condition [facility] Pain of bilateral shoulder regions Active Condition [facility] Pain of left ankle joint Active Condition [facility] Panic attack Active Condition [facility] Ringing in ears Active Condition [facility] Sinusitis Active Condition [facility] Snoring Active Condition [facility] Tinnitus Active Condition [facility] Tobacco use Active Condition [facility] Vitamin D Deficiency ([facility] [id number]) Active Condition [facility] Diagnosis: ICD-10-CM F90.9 Attention-deficit hyperactivity disorder, unspecified type Active Diagnosis [facility] Diagnosis: ICD-10-CM M54.2 Cervicalgia Active Diagnosis [facility] Diagnosis: ICD-10-CM R41.841 Cognitive communication deficit Active Diagnosis [facility] Diagnosis: ICD-10-CM Z71.9 Counseling, unspecified Active Diagnosis [facility] Diagnosis: ICD-10-CM F41.0 Panic disorder [episodic paroxysmal anxiety] Active Diagnosis [facility] Diagnosis: ICD-10-CM F43.23 Adjustment disorder with mixed anxiety and depressed mood Active Diagnosis [facility] Diagnosis: ICD-10-CM G47.33 Obstructive sleep apnea (adult) (pediatric) Active Diagnosis [facility] Diagnosis: ICD-10-CM Z72.0 Tobacco use Active Diagnosis [facility] Diagnosis: ICD-10-CM F32.A Depression, unspecified Active Diagnosis [facility] Diagnosis: ICD-10-CM Z76.0 Encounter for issue of repeat prescription Active Diagnosis [facility] Diagnosis: ICD-10-CM R10.9 Unspecified abdominal pain Active Diagnosis [facility] Diagnosis: ICD-10-CM M54.50 Low back pain, unspecified Active Diagnosis [facility] Diagnosis: ICD-10-CM N45.1 Epididymitis Active Diagnosis [facility] Diagnosis: ICD-10-CM M25.572 Pain in left ankle and joints of left foot Active Diagnosis [facility] Diagnosis: ICD-10-CM Z00.8 Encounter for other general examination Active Diagnosis [facility] Diagnosis: ICD-10-CM M25.562 Pain in left knee Active Diagnosis [facility] Medications Combined list of outpatient medications from Department of Defense and Veterans Affairs facilities.Medications provided include 1) outpatient medications from the last 15 months, and 2) patient-reported medications. Medication Details Route Status Patient Instructions Prescription Expires Prescription Number Last Dispense Date Ordering Provider Order Date Order Qty Source ATOMOXETINE 10MG CAP TAKE THREE CAPSULES BY MOUTH ONCE A DAY ORAL ACTIVE 02/24/2025 [id number] EULOGIO DUARTE NU 2024 270 [facility] ATOMOXETINE 10MG CAP TAKE ONE CAPSULE BY MOUTH EVERY MORNING FOR 15 DAYS, THEN TAKE TWO CAPSULES EVERY MORNING FOR ADHD ORAL DISCONT INUED (EDIT) 09/08/2025 [id number] EULOGIO DUARTE NU 2024 45 [facility] BUPROPION HCL 100MG 12HR TAB,SA TAKE ONE TABLET BY MOUTH ONCE A DAY FOCSUING AND CONCENTR ATING SWALLOW WHOLE - DO NOT CRUSH OR CHEW. ORAL DISCONT INUED BY PROVIDE R 07/20/2025 [id number] 5 DUY BEASLEY BENJI 2024 30 [facility] BUSPIRONE HCL 10MG TAB TAKE ONE-HALF TABLET BY MOUTH THREE TIMES A DAY DO NOT TAKE WITH GRAPEFRU IT JUICE. ORAL ACTIVE 02/24/2025 [id number] [facility] 2024 135 [facility] CHOLECALCIF PALOMO 50MCG (2,000UNIT) TAB TAKE ONE TABLET BY MOUTH ONCE A DAY FOR VITAMIN D DEFICIEN CY ORAL 10/20/2024 [id number] YOSSI ROUGH,CHR ISTA M 2023 100 [facility] CYCLOBENZAP RINE HCL 10MG TAB TAKE ONE TABLET BY MOUTH NIGHTLY NEEDED FOR MUSCLE SPASM MAY CAUSE DROWSINE SS. DO NOT DRINK ALCOHOL WHILE TAKING THIS MEDICATI ON. ORAL 08/07/2024 [id number] 4 AYAD JOSEPH S 2023 30 [facility] GABAPENTIN 100MG CAP TAKE ONE CAPSULE BY MOUTH NIGHTLY ORAL ACTIVE 07/09/2025 [id number] 4 AYAD JOSEPH SSA S 2023 90 [facility] IBUPROFEN 400MG TAB TAKE ONE TABLET BY MOUTH EVERY DAY NEEDED ORAL ACTIVE ZAHRAA MCKEON RA D 2019 [facility] IBUPROFEN 800MG TAB TAKE ONE TABLET BY MOUTH FOUR TIMES A DAY TAKE WITH FOOD. ORAL 10/06/2024 [id number] AYAD JOSEPH SSA S 2023 360 [facility] LEVOFLOXACI N 500MG TAB TAKE ONE TABLET BY MOUTH EVERY DAY ORAL ACTIVE Keysha HARTLEY ESHMA 2023 [facility] LIDOCAINE 5% PATCH APPLY 1 PATCH TO SKIN SITE ONCE A DAY APPLY PATCH AND PRESS FIRMLY FOR 10-15 SECONDS. KEEP ON FOR 12 HOURS THEN REMOVE PATCH FOR 12 HOURS. TRANSD ERMAL ACTIVE 08/17/2025 [id number] 5 Kalee JIMÉNEZ 2024 90 [facility] METHYLPREDN ISOLONE 4MG TAB DOSEPAK,21 TAKE TABLETS BY MOUTH DIRECTED TAKE 6 TABLETS BY MOUTH ON DAY ONE, THEN DECREASE BY ONE TABLET DAILY UNTIL GONE. TAKE WITH FOOD. ORAL 08/07/2024 [id number] 4 JAKEAYAD SSA S 2023 1 [facility] PAROXETINE HCL 10MG TAB TAKE ONE TABLET BY MOUTH EVERY DAY ORAL ACTIVE Keysha HARTLEY ESHMA 2023 [facility] Immunizations Combined list of available immunizations from the Department of Defense and [facility] Affairs facilities. Immunization Series Date Given Administered By Site Reaction Lot Number CVX Code Drug Hotbed Transfer Operator Status Comments Source INFLUENZA, UNSPECIFIED FORMULATION 2022 88 complet ed HISTORICA L INFORMATI ON - FROM PATIENT'S RECALL, [facility] INFLUENZA, INJECTABLE, MDCK, PRESERVATIVE FREE, QUADRIVALENT 2021 [place]NO [place] ID [id number] 171 complet ed [facility]MINISTE RED AT [facility] PNEUMOCOCCAL POLYSACCHARID E PPV23 2020 33 complet ed [facility] TDAP [address] [facility] [facility] INFLUENZA, UNSPECIFIED FORMULATION 2018 88 complet ed [facility] TDAP 1 2014 115 complet ed HISTORICA L INFORMATI ON - FROM OTHER REGISTRY, [facility] INFLUENZA, UNSPECIFIED FORMULATION 2013 88 complet ed HISTORICA L INFORMATI ON - FROM OTHER REGISTRY, [facility] DTP-HIB 2 1996 22 complet ed HISTORICA L INFORMATI ON - FROM OTHER REGISTRY, [facility] TRIVALENT OPV 2 1996 02 complet ed HISTORICA L INFORMATI ON - FROM OTHER REGISTRY, [facility] DTP-HIB 1 1996 22 complet ed HISTORICA L INFORMATI ON - FROM OTHER REGISTRY, [facility] HEP B, ADOLESCENT OR PEDIATRIC 2 1996 08 complet ed HISTORICA L INFORMATI ON - FROM OTHER REGISTRY, [facility] TRIVALENT OPV 1 1996 02 complet ed HISTORICA L INFORMATI ON - FROM OTHER REGISTRY, [facility] HEP B, ADOLESCENT OR PEDIATRIC 1 1996 08 complet ed HISTORICA L INFORMATI ON - FROM OTHER REGISTRY, [facility] Results Combined list of recent chemistry, hematology and other laboratory results from Department of Defense and Veterans Affairs, ranging from 15 months to all on record, depending upon the facility. Order Name Results Value Reference Range Date Interpretation Specimen Comments Source CBC + DIFF HEMOGLOBIN [MASS/VOLU ME] IN BLOOD 16.2 g/dL 13.3 - 17.7 03/02 Specimen Type: BLOOD No comment entered. Ordering Provider: BEL HARTLEY [facility] Report Released Date/Time: Feb 12, 2024 03:37 PM Reporting Lab: [facility] [id number] [place] [phone] Performing Lab: [facility] [id number] [place] [phone] [facility] CBC + DIFF HEMATOCRIT [VOLUME FRACTION] OF BLOOD BY AUTOMATED COUNT 48.3 39.0 - 52.0 03/02 Specimen Type: BLOOD No comment entered. Ordering Provider: BLE HARTLEY A Report Released Date/Time: Feb 12, 2024 03:37 PM Reporting Lab: [address] [address] Performing Lab: [facility] [address] [address] [facility] CBC + DIFF MCV [ENTITIC VOLUME] BY AUTOMATED COUNT 91.3 fL 80.0 - 99.0 03/02 Specimen Type: BLOOD No comment entered. Ordering Provider: BEL HARTLEY [facility] Report Released Date/Time: Feb 12, 2024 03:37 PM Reporting Lab: [address] [address] Performing Lab: [address] [address] [facility] CBC + DIFF MCH [ENTITIC MASS] BY AUTOMATED COUNT 30.6 pg 27.0 - 34.0 03/02 Specimen Type: BLOOD No comment entered. Ordering Provider: BEL HARTLEY [facility] Report Released Date/Time: Feb 12, 2024 03:37 PM Reporting Lab: [address] [address] Performing Lab: [address] [address] [facility] CBC + DIFF MCHC [MASS/VOLU ME] BY AUTOMATED COUNT 33.5 g/dL 32.0 - 36.0 03/02 Specimen Type: BLOOD No comment entered. Ordering Provider: BEL HARTLEY [facility] Report Released Date/Time: Feb 12, 2024 03:37 PM Reporting Lab: [address] [address] Performing Lab: [address] [phone] [place] [address] [facility] CBC + DIFF PLATELETS [#/VOLUME] IN BLOOD BY AUTOMATED COUNT 282 10*3/uL 150 - 440 03/02 Specimen Type: BLOOD No comment entered. Ordering Provider: BEL HARTLEY [facility] Report Released Date/Time: Feb 12, 2024 03:37 PM Reporting Lab: [address] [address] Performing Lab: [address] [phone] [place] [address] [facility] CBC + DIFF ERYTHROCYT E DISTRIBUTI ON WIDTH [RATIO] BY AUTOMATED COUNT 12.2 12.0 - 15.0 03/02 Specimen Type: BLOOD No comment entered. Ordering Provider: BEL HARTLEY [facility] Report Released Date/Time: Feb 12, 2024 03:37 PM Reporting Lab: [address] [address] Performing Lab: [address] [address] [facility] CBC + DIFF LYMPHOCYTE S/100 LEUKOCYTES IN BLOOD BY AUTOMATED COUNT 24.5 20.0 - 40.0 03/02 Specimen Type: BLOOD No comment entered. Ordering Provider: BEL HARTLEY [facility] Report Released Date/Time: Feb 12, 2024 03:37 PM Reporting Lab: [address] [address] Performing Lab: [address] [address] [facility] CBC + DIFF LYMPHOCYTE S [#/VOLUME] IN BLOOD BY AUTOMATED COUNT 1560 /uL 600 - 4800 03/02 Specimen Type: BLOOD No comment entered. Ordering Provider: BEL HARTLEY [facility] Report Released Date/Time: Feb 12, 2024 03:37 PM Reporting Lab: [address] [address] Performing Lab: [address] [address] [facility] CBC + DIFF ERYTHROCYT ES [#/VOLUME] IN BLOOD BY AUTOMATED COUNT 5.29 10*6/uL 4.40 - 5.90 03/02 Specimen Type: BLOOD No comment entered. Ordering Provider: BEL HARTLEY [facility] Report Released Date/Time: Feb 12, 2024 03:37 PM Reporting Lab: [address] [address] Performing Lab: [address] [address] [facility] CBC + DIFF LEUKOCYTES [#/VOLUME] IN BLOOD BY AUTOMATED COUNT 6.37 10*3/uL 4.50 - 11.00 03/02 Specimen Type: BLOOD No comment entered. Ordering Provider: BEL HARTLEY [facility] Report Released Date/Time: Feb 12, 2024 03:37 PM Reporting Lab: [address] [address] Performing Lab: [facility] [id number] [place] [phone] [facility] CBC + DIFF MONOCYTES/ 100 LEUKOCYTES IN BLOOD BY AUTOMATED COUNT 6.0 2.0 - 10.0 03/02 Specimen Type: BLOOD No comment entered. Ordering Provider: BEL HARTLEY [facility] Report Released Date/Time: Feb 12, 2024 03:37 PM Reporting Lab: [address] [address] Performing Lab: [address] [address] [facility] CBC + DIFF MONOCYTES [#/VOLUME] IN BLOOD BY AUTOMATED COUNT 380 /uL 0 - 950 03/02 Specimen Type: BLOOD No comment entered. Ordering Provider: BEL HARTLEY [facility] Report Released Date/Time: Feb 12, 2024 03:37 PM Reporting Lab: [address] [address] Performing Lab: [address] [address] [facility] CBC + DIFF EOSINOPHIL S/100 LEUKOCYTES IN BLOOD BY AUTOMATED COUNT 11.1 1.0 - 6.0 03/02 H Specimen Type: BLOOD No comment entered. Ordering Provider: BEL HARTLEY [facility] Report Released Date/Time: Feb 12, 2024 03:37 PM Reporting Lab: [address] [address] Performing Lab: [address] [address] [facility] CBC + DIFF EOSINOPHIL S [#/VOLUME] IN BLOOD BY AUTOMATED COUNT 710 /uL 0 - 500 03/02 H Specimen Type: BLOOD No comment entered. Ordering Provider: BEL HARTLEY [facility] Report Released Date/Time: Feb 12, 2024 03:37 PM Reporting Lab: [address] [address] Performing Lab: [address] [address] [facility] CBC + DIFF BASOPHILS/ 100 LEUKOCYTES IN BLOOD BY AUTOMATED COUNT 2.0 0.0 - 1.0 03/02 H Specimen Type: BLOOD No comment entered. Ordering Provider: BEL HARTLEY [facility] Report Released Date/Time: Feb 12, 2024 03:37 PM Reporting Lab: [address] [address] Performing Lab: [address] [address] [facility] CBC + DIFF BASOPHILS [#/VOLUME] IN BLOOD BY AUTOMATED COUNT 130 /uL 0 - 200 03/02 Specimen Type: BLOOD No comment entered. Ordering Provider: BEL HARTLEY [facility] Report Released Date/Time: Feb 12, 2024 03:37 PM Reporting Lab: [address] [address] Performing Lab: [address] [address] [facility] CBC + DIFF NEUTROPHIL S/100 LEUKOCYTES IN BLOOD BY AUTOMATED COUNT 56.2 41.0 - 85.0 03/02 Specimen Type: BLOOD No comment entered. Ordering Provider: BEL HARTLEY [facility] Report Released Date/Time: Feb 12, 2024 03:37 PM Reporting Lab: [address] [address] Performing Lab: [address] [address] [facility] CBC + DIFF NEUTROPHIL S [#/VOLUME] IN BLOOD BY AUTOMATED COUNT 3580 /uL 1100 - 7700 03/02 Specimen Type: BLOOD No comment entered. Ordering Provider: BEL HARTLEY [facility] Report Released Date/Time: Feb 12, 2024 03:37 PM Reporting Lab: [address] [address] Performing Lab: [address] [address] [facility] CBC + DIFF MPV 11.5 fL 9.0 - 12.4 03/02 Specimen Type: BLOOD No comment entered. Ordering Provider: BEL HARTLEY [facility] Report Released Date/Time: Feb 12, 2024 03:37 PM Reporting Lab: [address] [address] Performing Lab: [address] [address] [facility] CBC + DIFF IMMATURE GRANULOCYT ES [#/VOLUME] IN BLOOD BY AUTOMATED COUNT 10 /uL 0 - 60 03/02 Specimen Type: BLOOD No comment entered. Ordering Provider: BEL HARTLEY [facility] Report Released Date/Time: Feb 12, 2024 03:37 PM Reporting Lab: [address] [address] Performing Lab: [address] [phone] [place] [address] [facility] CBC + DIFF NUCLEATED ERYTHROCYT ES [#/VOLUME] IN BLOOD BY AUTOMATED COUNT 0 /uL 0 - 0 03/02 Specimen Type: BLOOD No comment entered. Ordering Provider: BEL HARTLEY [facility] Report Released Date/Time: Feb 12, 2024 03:37 PM Reporting Lab: [address] [address] Performing Lab: [address] [phone] [facility] CBC + DIFF IMMATURE GRANULOCYT ES/100 LEUKOCYTES IN BLOOD 0.2 0.0 - 0.9 03/02 Specimen Type: BLOOD No comment entered. Ordering Provider: BEL HARTLEY A Report Released Date/Time: Feb 12, 2024 03:37 PM Reporting Lab: [address] [address] Performing Lab: [address] [phone] [place] [address] [facility] CBC + DIFF NUCLEATED ERYTHROCYT ES/100 LEUKOCYTES [RATIO] IN BLOOD BY MANUAL COUNT 0.0 0.0 - 0.0 03/02 Specimen Type: BLOOD No comment entered. Ordering Provider: BEL HARTLEY A Report Released Date/Time: Feb 12, 2024 03:37 PM Reporting Lab: [address] [address] Performing Lab: [address] [phone] [facility] ANION/OS MOLAL GAP PANEL UREA NITROGEN [MASS/VOLU ME] IN SERUM OR PLASMA 14 mg/dL 5 - 25 03/02 Specimen Type: SERUM Comment: eGFR CKD-EPI eGFR calculated using the 2020 CKD-EPI-cre atinine equation; units of measure are mL/min/1.73 m~2. eGFR can only be interpreted if creatinine is in steady state and is not valid in patients with acute kidney injury and in patients on dialysis. CKD is diagnosed based on abnormaliti es of kidney structure or function, present for >3 months, with implication s for health and disease.CKD is classified and stage based on cause, eGFR and albuminuria , quantified as urine albumin to creatinine ratio. eGFR staging of CKD Stage G1 eGFR >90 mL/min/1.73 m~2 Stage G2 eGFR 60-89 mL/min/1.73 m~2 Stage G3a eGFR 45-59 mL/min/1.73 m~2 Stage G3b eGFR 30-44 mL/min/1.73 m~2 Stage G4 eGFR 15-29 mL/min/1.73 m~2 Stage G5 eGFR <15 mL/min/1.73 m~2 Ordering Provider: BEL HARTLEY Report Released Date/Time: Feb 12, 2024 03:37 PM Reporting Lab: [facility] [address] [facility] [address] Performing Lab: [facility] [address] [facility] [address] [facility] ANION/OS MOLAL GAP PANEL GLUCOSE [MASS/VOLU ME] IN SERUM OR PLASMA 95 mg/dL 70 - 110 03/02 Specimen Type: SERUM Comment: eGFR CKD-EPI eGFR calculated using the 2020 CKD-EPI-cre atinine equation; units of measure are mL/min/1.73 m~2. eGFR can only be interpreted if creatinine is in steady state and is not valid in patients with acute kidney injury and in patients on dialysis. CKD is diagnosed based on abnormaliti es of kidney structure or function, present for >3 months, with implication s for health and disease.CKD is classified and stage based on cause, eGFR and albuminuria , quantified as urine albumin to creatinine ratio. eGFR staging of CKD Stage G1 eGFR >90 mL/min/1.73 m~2 Stage G2 eGFR 60-89 mL/min/1.73 m~2 Stage G3a eGFR 45-59 mL/min/1.73 m~2 Stage G3b eGFR 30-44 mL/min/1.73 m~2 Stage G4 eGFR 15-29 mL/min/1.73 m~2 Stage G5 eGFR <15 mL/min/1.73 m~2 Ordering Provider: BEL HARTLEY [facility] Report Released Date/Time: Feb 12, 2024 03:37 PM Reporting Lab: [address] [address] Performing Lab: [address] [address] [facility] ANION/OS MOLAL GAP PANEL SODIUM [MOLES/VOL UME] IN SERUM OR PLASMA 137 mmol/L 136 - 146 03/02 Specimen Type: SERUM Comment: eGFR CKD-EPI eGFR calculated using the 2020 CKD-EPI-cre atinine equation; units of measure are mL/min/1.73 m~2. eGFR can only be interpreted if creatinine is in steady state and is not valid in patients with acute kidney injury and in patients on dialysis. CKD is diagnosed based on abnormaliti es of kidney structure or function, present for >3 months, with implication s for health and disease.CKD is classified and stage based on cause, eGFR and albuminuria , quantified as urine albumin to creatinine ratio. eGFR staging of CKD Stage G1 eGFR >90 mL/min/1.73 m~2 Stage G2 eGFR 60-89 mL/min/1.73 m~2 Stage G3a eGFR 45-59 mL/min/1.73 m~2 Stage G3b eGFR 30-44 mL/min/1.73 m~2 Stage G4 eGFR 15-29 mL/min/1.73 m~2 Stage G5 eGFR <15 mL/min/1.73 m~2 Ordering Provider: BEL HARTLEY [facility] Report Released Date/Time: Feb 12, 2024 03:37 PM Reporting Lab: [address] [address] Performing Lab: [address] [address] [facility] ANION/OS MOLAL GAP PANEL POTASSIUM [MOLES/VOL UME] IN SERUM OR PLASMA 4.3 mmol/L 3.5 - 5.3 03/02 Specimen Type: SERUM Comment: eGFR CKD-EPI eGFR calculated using the 2020 CKD-EPI-cre atinine equation; units of measure are mL/min/1.73 m~2. eGFR can only be interpreted if creatinine is in steady state and is not valid in patients with acute kidney injury and in patients on dialysis. CKD is diagnosed based on abnormaliti es of kidney structure or function, present for >3 months, with implication s for health and disease.CKD is classified and stage based on cause, eGFR and albuminuria , quantified as urine albumin to creatinine ratio. eGFR staging of CKD Stage G1 eGFR >90 mL/min/1.73 m~2 Stage G2 eGFR 60-89 mL/min/1.73 m~2 Stage G3a eGFR 45-59 mL/min/1.73 m~2 Stage G3b eGFR 30-44 mL/min/1.73 m~2 Stage G4 eGFR 15-29 mL/min/1.73 m~2 Stage G5 eGFR <15 mL/min/1.73 m~2 Ordering Provider: BEL HARTLEY Report Released Date/Time: Feb 12, 2024 03:37 PM Reporting Lab: [address] [address] Performing Lab: [address] [address] [facility] ANION/OS MOLAL GAP PANEL CARBON DIOXIDE, TOTAL [MOLES/VOL UME] IN SERUM OR PLASMA 29.6 mmol/L 24 - 03/02 Specimen Type: SERUM Comment: eGFR CKD-EPI eGFR calculated using the 2020 CKD-EPI-cre atinine equation; units of measure are mL/min/1.73 m~2. eGFR can only be interpreted if creatinine is in steady state and is not valid in patients with acute kidney injury and in patients on dialysis. CKD is diagnosed based on abnormaliti es of kidney structure or function, present for >3 months, with implication s for health and disease.CKD is classified and stage based on cause, eGFR and albuminuria , quantified as urine albumin to creatinine ratio. eGFR staging of CKD Stage G1 eGFR >90 mL/min/1.73 m~2 Stage G2 eGFR 60-89 mL/min/1.73 m~2 Stage G3a eGFR 45-59 mL/min/1.73 m~2 Stage G3b eGFR 30-44 mL/min/1.73 m~2 Stage G4 eGFR 15-29 mL/min/1.73 m~2 Stage G5 eGFR <15 mL/min/1.73 m~2 Ordering Provider: BEL HARTLEY [facility] Report Released Date/Time: Feb 12, 2024 03:37 PM Reporting Lab: [address] [address] Performing Lab: [address] [address] [facility] ANION/OS MOLAL GAP PANEL CHLORIDE [MOLES/VOL UME] IN SERUM OR PLASMA 101 mmol/L 95 - 110 03/02 Specimen Type: SERUM Comment: eGFR CKD-EPI eGFR calculated using the 2020 CKD-EPI-cre atinine equation; units of measure are mL/min/1.73 m~2. eGFR can only be interpreted if creatinine is in steady state and is not valid in patients with acute kidney injury and in patients on dialysis. CKD is diagnosed based on abnormaliti es of kidney structure or function, present for >3 months, with implication s for health and disease.CKD is classified and stage based on cause, eGFR and albuminuria , quantified as urine albumin to creatinine ratio. eGFR staging of CKD Stage G1 eGFR >90 mL/min/1.73 m~2 Stage G2 eGFR 60-89 mL/min/1.73 m~2 Stage G3a eGFR 45-59 mL/min/1.73 m~2 Stage G3b eGFR 30-44 mL/min/1.73 m~2 Stage G4 eGFR 15-29 mL/min/1.73 m~2 Stage G5 eGFR <15 mL/min/1.73 m~2 Ordering Provider: BEL HARTLEY [facility] Report Released Date/Time: Feb 12, 2024 03:37 PM Reporting Lab: [address] [address] Performing Lab: [address] [address] [facility] ANION/OS MOLAL GAP PANEL GLOMERULAR FILTRATION RATE/1.73 SQ M.PREDICTE D [VOLUME RATE/AREA] IN SERUM, PLASMA OR BLOOD BY CREATININE -BASED FORMULA (CKD-EPI 2020) 99 60 03/02 Specimen Type: SERUM Comment: eGFR CKD-EPI eGFR calculated using the 2020 CKD-EPI-cre atinine equation; units of measure are mL/min/1.73 m~2. eGFR can only be interpreted if creatinine is in steady state and is not valid in patients with acute kidney injury and in patients on dialysis. CKD is diagnosed based on abnormaliti es of kidney structure or function, present for >3 months, with implication s for health and disease.CKD is classified and stage based on cause, eGFR and albuminuria , quantified as urine albumin to creatinine ratio. eGFR staging of CKD Stage G1 eGFR >90 mL/min/1.73 m~2 Stage G2 eGFR 60-89 mL/min/1.73 m~2 Stage G3a eGFR 45-59 mL/min/1.73 m~2 Stage G3b eGFR 30-44 mL/min/1.73 m~2 Stage G4 eGFR 15-29 mL/min/1.73 m~2 Stage G5 eGFR <15 mL/min/1.73 m~2 Ordering Provider: BEL HARTLEY Report Released Date/Time: Feb 12, 2024 03:37 PM Reporting Lab: [address] [address] Performing Lab: [address] [address] [facility] ANION/OS MOLAL GAP PANEL CREATININE [MASS/VOLU ME] IN SERUM OR PLASMA 1.06 mg/dL 0.52 - 1.28 03/02 Specimen Type: SERUM Comment: eGFR CKD-EPI eGFR calculated using the 2020 CKD-EPI-cre atinine equation; units of measure are mL/min/1.73 m~2. eGFR can only be interpreted if creatinine is in steady state and is not valid in patients with acute kidney injury and in patients on dialysis. CKD is diagnosed based on abnormaliti es of kidney structure or function, present for >3 months, with implication s for health and disease.CKD is classified and stage based on cause, eGFR and albuminuria , quantified as urine albumin to creatinine ratio. eGFR staging of CKD Stage G1 eGFR >90 mL/min/1.73 m~2 Stage G2 eGFR 60-89 mL/min/1.73 m~2 Stage G3a eGFR 45-59 mL/min/1.73 m~2 Stage G3b eGFR 30-44 mL/min/1.73 m~2 Stage G4 eGFR 15-29 mL/min/1.73 m~2 Stage G5 eGFR <15 mL/min/1.73 m~2 Ordering Provider: BEL HARTLEY Report Released Date/Time: Feb 12, 2024 03:37 PM Reporting Lab: [address] [phone] Performing Lab: [address] [address] [facility] ANION/OS MOLAL GAP PANEL ANION GAP 3 IN SERUM OR PLASMA 6.4 mmol/L 3 - 11 03/02 Specimen Type: SERUM Comment: eGFR CKD-EPI eGFR calculated using the 2020 CKD-EPI-cre atinine equation; units of measure are mL/min/1.73 m~2. eGFR can only be interpreted if creatinine is in steady state and is not valid in patients with acute kidney injury and in patients on dialysis. CKD is diagnosed based on abnormaliti es of kidney structure or function, present for >3 months, with implication s for health and disease.CKD is classified and stage based on cause, eGFR and albuminuria , quantified as urine albumin to creatinine ratio. eGFR staging of CKD Stage G1 eGFR >90 mL/min/1.73 m~2 Stage G2 eGFR 60-89 mL/min/1.73 m~2 Stage G3a eGFR 45-59 mL/min/1.73 m~2 Stage G3b eGFR 30-44 mL/min/1.73 m~2 Stage G4 eGFR 15-29 mL/min/1.73 m~2 Stage G5 eGFR <15 mL/min/1.73 m~2 Ordering Provider: BEL HARTLEY [facility] Report Released Date/Time: Feb 12, 2024 03:37 PM Reporting Lab: [address] [address] Performing Lab: [address] [address] [facility] METABOLI C PANEL BILIRUBIN. TOTAL [MASS/VOLU ME] IN SERUM OR PLASMA 0.6 mg/dL 0.2 - 1 03/02 Specimen Type: SERUM Comment: eGFR CKD-EPI eGFR calculated using the 2020 CKD-EPI-cre atinine equation; units of measure are mL/min/1.73 m~2. eGFR can only be interpreted if creatinine is in steady state and is not valid in patients with acute kidney injury and in patients on dialysis. CKD is diagnosed based on abnormaliti es of kidney structure or function, present for >3 months, with implication s for health and disease.CKD is classified and stage based on cause, eGFR and albuminuria , quantified as urine albumin to creatinine ratio. eGFR staging of CKD Stage G1 eGFR >90 mL/min/1.73 m~2 Stage G2 eGFR 60-89 mL/min/1.73 m~2 Stage G3a eGFR 45-59 mL/min/1.73 m~2 Stage G3b eGFR 30-44 mL/min/1.73 m~2 Stage G4 eGFR 15-29 mL/min/1.73 m~2 Stage G5 eGFR <15 mL/min/1.73 m~2 Ordering Provider: BEL HARTLEY [facility] Report Released Date/Time: Feb 12, 2024 03:37 PM Reporting Lab: [address] [phone] Performing Lab: [address] [address] [facility] METABOLI C PANEL ASPARTATE AMINOTRANS FERASE [ENZYMATIC ACTIVITY/V OLUME] IN SERUM OR PLASMA 20 U/L 13 - 35 03/02 Specimen Type: SERUM Comment: eGFR CKD-EPI eGFR calculated using the 2020 CKD-EPI-cre atinine equation; units of measure are mL/min/1.73 m~2. eGFR can only be interpreted if creatinine is in steady state and is not valid in patients with acute kidney injury and in patients on dialysis. CKD is diagnosed based on abnormaliti es of kidney structure or function, present for >3 months, with implication s for health and disease.CKD is classified and stage based on cause, eGFR and albuminuria , quantified as urine albumin to creatinine ratio. eGFR staging of CKD Stage G1 eGFR >90 mL/min/1.73 m~2 Stage G2 eGFR 60-89 mL/min/1.73 m~2 Stage G3a eGFR 45-59 mL/min/1.73 m~2 Stage G3b eGFR 30-44 mL/min/1.73 m~2 Stage G4 eGFR 15-29 mL/min/1.73 m~2 Stage G5 eGFR <15 mL/min/1.73 m~2 Ordering Provider: BEL HARTLEY [facility] Report Released Date/Time: Feb 12, 2024 03:37 PM Reporting Lab: [address] [address] Performing Lab: [facility] [address] [facility] [address] [facility] METABOLI C PANEL ALKALINE PHOSPHATAS E [ENZYMATIC ACTIVITY/V OLUME] IN SERUM OR PLASMA 51 U/L 33 - 94 03/02 Specimen Type: SERUM Comment: eGFR CKD-EPI eGFR calculated using the 2020 CKD-EPI-cre atinine equation; units of measure are mL/min/1.73 m~2. eGFR can only be interpreted if creatinine is in steady state and is not valid in patients with acute kidney injury and in patients on dialysis. CKD is diagnosed based on abnormaliti es of kidney structure or function, present for >3 months, with implication s for health and disease.CKD is classified and stage based on cause, eGFR and albuminuria , quantified as urine albumin to creatinine ratio. eGFR staging of CKD Stage G1 eGFR >90 mL/min/1.73 m~2 Stage G2 eGFR 60-89 mL/min/1.73 m~2 Stage G3a eGFR 45-59 mL/min/1.73 m~2 Stage G3b eGFR 30-44 mL/min/1.73 m~2 Stage G4 eGFR 15-29 mL/min/1.73 m~2 Stage G5 eGFR <15 mL/min/1.73 m~2 Ordering Provider: BEL HARTLEY Report Released Date/Time: Feb 12, 2024 03:37 PM Reporting Lab: [facility] [id number] [place] [phone] Performing Lab: [address] [address] [facility] METABOLI C PANEL ALANINE AMINOTRANS FERASE [ENZYMATIC ACTIVITY/V OLUME] IN SERUM OR PLASMA 26 U/L 7 - 45 03/02 Specimen Type: SERUM Comment: eGFR CKD-EPI eGFR calculated using the 2020 CKD-EPI-cre atinine equation; units of measure are mL/min/1.73 m~2. eGFR can only be interpreted if creatinine is in steady state and is not valid in patients with acute kidney injury and in patients on dialysis. CKD is diagnosed based on abnormaliti es of kidney structure or function, present for >3 months, with implication s for health and disease.CKD is classified and stage based on cause, eGFR and albuminuria , quantified as urine albumin to creatinine ratio. eGFR staging of CKD Stage G1 eGFR >90 mL/min/1.73 m~2 Stage G2 eGFR 60-89 mL/min/1.73 m~2 Stage G3a eGFR 45-59 mL/min/1.73 m~2 Stage G3b eGFR 30-44 mL/min/1.73 m~2 Stage G4 eGFR 15-29 mL/min/1.73 m~2 Stage G5 eGFR <15 mL/min/1.73 m~2 Ordering Provider: BEL HARTLEY [facility] Report Released Date/Time: Feb 12, 2024 03:37 PM Reporting Lab: [address] [address] Performing Lab: [address] [address] [facility] METABOLI C PANEL CALCIUM [MASS/VOLU ME] IN SERUM OR PLASMA 10.0 mg/dL 8.4 - 10.2 03/02 Specimen Type: SERUM Comment: eGFR CKD-EPI eGFR calculated using the 2020 CKD-EPI-cre atinine equation; units of measure are mL/min/1.73 m~2. eGFR can only be interpreted if creatinine is in steady state and is not valid in patients with acute kidney injury and in patients on dialysis. CKD is diagnosed based on abnormaliti es of kidney structure or function, present for >3 months, with implication s for health and disease.CKD is classified and stage based on cause, eGFR and albuminuria , quantified as urine albumin to creatinine ratio. eGFR staging of CKD Stage G1 eGFR >90 mL/min/1.73 m~2 Stage G2 eGFR 60-89 mL/min/1.73 m~2 Stage G3a eGFR 45-59 mL/min/1.73 m~2 Stage G3b eGFR 30-44 mL/min/1.73 m~2 Stage G4 eGFR 15-29 mL/min/1.73 m~2 Stage G5 eGFR <15 mL/min/1.73 m~2 Ordering Provider: BEL HARTLEY [facility] Report Released Date/Time: Feb 12, 2024 03:37 PM Reporting Lab: [address] [phone] Performing Lab: [address] [address] [facility] METABOLI C PANEL ALBUMIN [MASS/VOLU ME] IN SERUM OR PLASMA 4.5 g/dL 3.2 - 4.8 03/02 Specimen Type: SERUM Comment: eGFR CKD-EPI eGFR calculated using the 2020 CKD-EPI-cre atinine equation; units of measure are mL/min/1.73 m~2. eGFR can only be interpreted if creatinine is in steady state and is not valid in patients with acute kidney injury and in patients on dialysis. CKD is diagnosed based on abnormaliti es of kidney structure or function, present for >3 months, with implication s for health and disease.CKD is classified and stage based on cause, eGFR and albuminuria , quantified as urine albumin to creatinine ratio. eGFR staging of CKD Stage G1 eGFR >90 mL/min/1.73 m~2 Stage G2 eGFR 60-89 mL/min/1.73 m~2 Stage G3a eGFR 45-59 mL/min/1.73 m~2 Stage G3b eGFR 30-44 mL/min/1.73 m~2 Stage G4 eGFR 15-29 mL/min/1.73 m~2 Stage G5 eGFR <15 mL/min/1.73 m~2 Ordering Provider: BEL HARTLEY Report Released Date/Time: Feb 12, 2024 03:37 PM Reporting Lab: [facility] [address] [facility] [address] Performing Lab: [facility] [address] [facility] [address] [facility] LIPID PANEL CHOLESTERO L [MASS/VOLU ME] IN SERUM OR PLASMA 229 mg/dL - 200 03/02 H Specimen Type: SERUM Comment: eGFR CKD-EPI eGFR calculated using the 2020 CKD-EPI-cre atinine equation; units of measure are mL/min/1.73 m~2. eGFR can only be interpreted if creatinine is in steady state and is not valid in patients with acute kidney injury and in patients on dialysis. CKD is diagnosed based on abnormaliti es of kidney structure or function, present for >3 months, with implication s for health and disease.CKD is classified and stage based on cause, eGFR and albuminuria , quantified as urine albumin to creatinine ratio. eGFR staging of CKD Stage G1 eGFR >90 mL/min/1.73 m~2 Stage G2 eGFR 60-89 mL/min/1.73 m~2 Stage G3a eGFR 45-59 mL/min/1.73 m~2 Stage G3b eGFR 30-44 mL/min/1.73 m~2 Stage G4 eGFR 15-29 mL/min/1.73 m~2 Stage G5 eGFR <15 mL/min/1.73 m~2 Ordering Provider: BEL HARTLEY [facility] Report Released Date/Time: Feb 12, 2024 03:37 PM Reporting Lab: [address] [address] Performing Lab: [address] [address] [facility] LIPID PANEL TRIGLYCERI DE [MASS/VOLU ME] IN SERUM OR PLASMA 256 mg/dL 40 - 160 03/02 H Specimen Type: SERUM Comment: eGFR CKD-EPI eGFR calculated using the 2020 CKD-EPI-cre atinine equation; units of measure are mL/min/1.73 m~2. eGFR can only be interpreted if creatinine is in steady state and is not valid in patients with acute kidney injury and in patients on dialysis. CKD is diagnosed based on abnormaliti es of kidney structure or function, present for >3 months, with implication s for health and disease.CKD is classified and stage based on cause, eGFR and albuminuria , quantified as urine albumin to creatinine ratio. eGFR staging of CKD Stage G1 eGFR >90 mL/min/1.73 m~2 Stage G2 eGFR 60-89 mL/min/1.73 m~2 Stage G3a eGFR 45-59 mL/min/1.73 m~2 Stage G3b eGFR 30-44 mL/min/1.73 m~2 Stage G4 eGFR 15-29 mL/min/1.73 m~2 Stage G5 eGFR <15 mL/min/1.73 m~2 Ordering Provider: BEL HARTLEY [facility] Report Released Date/Time: Feb 12, 2024 03:37 PM Reporting Lab: [address] [phone] Performing Lab: [address] [address] [facility] LIPID PANEL CHOLESTERO L IN HDL [MASS/VOLU ME] IN SERUM OR PLASMA 56.5 mg/dL 40 03/02 Specimen Type: SERUM Comment: eGFR CKD-EPI eGFR calculated using the 2020 CKD-EPI-cre atinine equation; units of measure are mL/min/1.73 m~2. eGFR can only be interpreted if creatinine is in steady state and is not valid in patients with acute kidney injury and in patients on dialysis. CKD is diagnosed based on abnormaliti es of kidney structure or function, present for >3 months, with implication s for health and disease.CKD is classified and stage based on cause, eGFR and albuminuria , quantified as urine albumin to creatinine ratio. eGFR staging of CKD Stage G1 eGFR >90 mL/min/1.73 m~2 Stage G2 eGFR 60-89 mL/min/1.73 m~2 Stage G3a eGFR 45-59 mL/min/1.73 m~2 Stage G3b eGFR 30-44 mL/min/1.73 m~2 Stage G4 eGFR 15-29 mL/min/1.73 m~2 Stage G5 eGFR <15 mL/min/1.73 m~2 Ordering Provider: BEL HARTLEY Report Released Date/Time: Feb 12, 2024 03:37 PM Reporting Lab: [facility] [id number] [place] [phone] Performing Lab: [address] [address] [facility] LIPID PANEL CHOLESTERO L IN LDL [MASS/VOLU ME] IN SERUM OR PLASMA BY CALCULATIO N 121 mg/dL <130 - 130 03/02 Specimen Type: SERUM Comment: eGFR CKD-EPI eGFR calculated using the 2020 CKD-EPI-cre atinine equation; units of measure are mL/min/1.73 m~2. eGFR can only be interpreted if creatinine is in steady state and is not valid in patients with acute kidney injury and in patients on dialysis. CKD is diagnosed based on abnormaliti es of kidney structure or function, present for >3 months, with implication s for health and disease.CKD is classified and stage based on cause, eGFR and albuminuria , quantified as urine albumin to creatinine ratio. eGFR staging of CKD Stage G1 eGFR >90 mL/min/1.73 m~2 Stage G2 eGFR 60-89 mL/min/1.73 m~2 Stage G3a eGFR 45-59 mL/min/1.73 m~2 Stage G3b eGFR 30-44 mL/min/1.73 m~2 Stage G4 eGFR 15-29 mL/min/1.73 m~2 Stage G5 eGFR <15 mL/min/1.73 m~2 Ordering Provider: BEL HARTLEY [facility] Report Released Date/Time: Feb 12, 2024 03:37 PM Reporting Lab: [address] [address] Performing Lab: [address] [address] [facility] LIPID PANEL CHOLESTERO L.TOTAL/CH OLESTEROL IN HDL [MASS RATIO] IN SERUM OR PLASMA 4.1 03/02 Specimen Type: SERUM Comment: eGFR CKD-EPI eGFR calculated using the 2020 CKD-EPI-cre atinine equation; units of measure are mL/min/1.73 m~2. eGFR can only be interpreted if creatinine is in steady state and is not valid in patients with acute kidney injury and in patients on dialysis. CKD is diagnosed based on abnormaliti es of kidney structure or function, present for >3 months, with implication s for health and disease.CKD is classified and stage based on cause, eGFR and albuminuria , quantified as urine albumin to creatinine ratio. eGFR staging of CKD Stage G1 eGFR >90 mL/min/1.73 m~2 Stage G2 eGFR 60-89 mL/min/1.73 m~2 Stage G3a eGFR 45-59 mL/min/1.73 m~2 Stage G3b eGFR 30-44 mL/min/1.73 m~2 Stage G4 eGFR 15-29 mL/min/1.73 m~2 Stage G5 eGFR <15 mL/min/1.73 m~2 Ordering Provider: BEL HARTLEY A Report Released Date/Time: Feb 12, 2024 03:37 PM Reporting Lab: [address] [address] Performing Lab: [address] [address] [facility] THYROID STIMULAT ING HORMONE (TSH3 ULTRA) THYROTROPI N [UNITS/VOL UME] IN SERUM OR PLASMA 1.059 u[IU]/mL 0.55 - 4.78 03/02 Specimen Type: SERUM No comment entered. Ordering Provider: BEL HARTLEY [facility] Report Released Date/Time: Feb 12, 2024 03:37 PM Reporting Lab: [address] [address] Performing Lab: [address] [address] [facility] URINALYS IS ONLY SPECIFIC GRAVITY OF URINE BY AUTOMATED TEST STRIP 1.023 1.001 - 1.029 03/02 Specimen Type: URINE No comment entered. Ordering Provider: BEL HARTLEY [facility] Report Released Date/Time: Feb 12, 2024 03:37 PM Reporting Lab: [address] [address] Performing Lab: [address] [address] [facility] URINALYS IS ONLY LEUKOCYTE ESTERASE [PRESENCE] IN URINE BY AUTOMATED TEST STRIP Negative - 25 03/02 Specimen Type: URINE No comment entered. Ordering Provider: BEL HARTLEY [facility] Report Released Date/Time: Feb 12, 2024 03:37 PM Reporting Lab: [address] [address] Performing Lab: [address] [address] [facility] URINALYS IS ONLY APPEARANCE OF URINE Clear 03/02 Specimen Type: URINE No comment entered. Ordering Provider: BEL HARTLEY [facility] Report Released Date/Time: Feb 12, 2024 03:37 PM Reporting Lab: [address] [address] Performing Lab: [address] [address] [facility] URINALYS IS ONLY BILIRUBIN. TOTAL [PRESENCE] IN URINE BY AUTOMATED TEST STRIP Negative mg/dL 03/02 Specimen Type: URINE No comment entered. Ordering Provider: BEL HARTLEY [facility] Report Released Date/Time: Feb 12, 2024 03:37 PM Reporting Lab: [address] [address] Performing Lab: [address] [address] [facility] URINALYS IS ONLY COLOR OF URINE BY AUTO Yellow 03/02 Specimen Type: URINE No comment entered. Ordering Provider: BEL HARTLEY [facility] Report Released Date/Time: Feb 12, 2024 03:37 PM Reporting Lab: [address] [address] Performing Lab: [address] [address] [facility] URINALYS IS ONLY GLUCOSE [MASS/VOLU ME] IN URINE Normalmg /dL 03/02 Specimen Type: URINE No comment entered. Ordering Provider: BEL HARTLEY [facility] Report Released Date/Time: Feb 12, 2024 03:37 PM Reporting Lab: [address] [address] Performing Lab: [address] [address] [facility] URINALYS IS ONLY KETONES [PRESENCE] IN URINE BY AUTOMATED TEST STRIP Negative mg/dL 03/02 Specimen Type: URINE No comment entered. Ordering Provider: BEL HARTLEY [facility] Report Released Date/Time: Feb 12, 2024 03:37 PM Reporting Lab: [address] [address] Performing Lab: [address] [address] [facility] URINALYS IS ONLY NITRITE [PRESENCE] IN URINE BY AUTOMATED TEST STRIP Negative 03/02 Specimen Type: URINE No comment entered. Ordering Provider: BEL HARTLEY [facility] Report Released Date/Time: Feb 12, 2024 03:37 PM Reporting Lab: [address] [address] Performing Lab: [address] [address] [facility] URINALYS IS ONLY ERYTHROCYT ES [PRESENCE] IN URINE BY AUTOMATED Negative mg/dL - 0.03 03/02 Specimen Type: URINE No comment entered. Ordering Provider: BEL HARTLEY [facility] Report Released Date/Time: Feb 12, 2024 03:37 PM Reporting Lab: [address] [address] Performing Lab: [place] [address] [address] [facility] URINALYS IS ONLY PROTEIN [MASS/VOLU ME] IN URINE Negative mg/dL - 20 03/02 Specimen Type: URINE No comment entered. Ordering Provider: BEL HARTLEY [facility] Report Released Date/Time: Feb 12, 2024 03:37 PM Reporting Lab: [address] [address] Performing Lab: [address] [address] [facility] URINALYS IS ONLY UROBILINOG EN [UNITS/VOL UME] IN URINE BY TEST STRIP Normalmg /dL 03/02 Specimen Type: URINE No comment entered. Ordering Provider: BEL HARTLEY [facility] Report Released Date/Time: Feb 12, 2024 03:37 PM Reporting Lab: [address] [address] Performing Lab: [address] [address] [facility] URINALYS IS ONLY PH OF URINE BY AUTOMATED TEST STRIP 6.5 5.0 - 8.0 03/02 Specimen Type: URINE No comment entered. Ordering Provider: BEL HARTLEY [facility] Report Released Date/Time: Feb 12, 2024 03:37 PM Reporting Lab: [address] [address] Performing Lab: [address] [address] [facility] VITAMIN D, 25-HYDRO XY 25-HYDROXY VITAMIN D3 [MASS/VOLU ME] IN SERUM OR PLASMA 15.9 ng/mL 30 - 96 10/13 L Specimen Type: SERUM No comment entered. Ordering Provider: CAIN PERALES Report Released Date/Time: Oct 14, 2023 03:38 PM Reporting Lab: [facility] [address] Performing Lab: [facility] [phone] [facility] LIPID PANEL (STL) CHOLESTERO L [MASS/VOLU ME] IN SERUM OR PLASMA 225 mg/dL 0 - 200 10/13 H Specimen Type: PLASMA Comment: No hemolysis noted. Ordering Provider: CAIN PERALES Report Released Date/Time: Oct 14, 2023 03:38 PM Reporting Lab: [facility] [place] [address] Performing Lab: [facility] LIPID PANEL (STL) TRIGLYCERI DE [MASS/VOLU ME] IN SERUM OR PLASMA 209 mg/dL 0 - 150 10/13 H Specimen Type: PLASMA Comment: No hemolysis noted. Ordering Provider: CAIN PERALES Report Released Date/Time: Oct 14, 2023 03:38 PM Reporting Lab: [facility] [place] [address] Performing Lab: [facility] LIPID PANEL (STL) CHOLESTERO L IN LDL [MASS/VOLU ME] IN SERUM OR PLASMA BY DECLAN Zafar 135 mg/dL 10/13 Specimen Type: PLASMA Comment: No hemolysis noted. Ordering Provider: CAIN PERALES Report Released Date/Time: Oct 14, 2023 03:38 PM Reporting Lab: [facility] [place] [address] Performing Lab: [facility] LIPID PANEL (STL) CHOLESTERO L IN HDL [MASS/VOLU ME] IN SERUM OR PLASMA 48 mg/dL 40 10/13 Specimen Type: PLASMA Comment: No hemolysis noted. Ordering Provider: CAIN PERALES Report Released Date/Time: Oct 14, 2023 03:38 PM Reporting Lab: [facility] [place] [address] Performing Lab: [facility] [phone] [facility] CBC LEUKOCYTES [#/VOLUME] IN BLOOD BY AUTOMATED COUNT 9.1 10*3/uL 3.6 - 11.2 10/13 Specimen Type: BLOOD No comment entered. Ordering Provider: CAIN PERALES Report Released Date/Time: Oct 14, 2023 03:38 PM Reporting Lab: [facility] [place] [phone] Performing Lab: [facility] [phone] CBC ERYTHROCYT ES [#/VOLUME] IN BLOOD BY AUTOMATED COUNT 4.79 10*6/uL 4.10 - 5.70 10/13 Specimen Type: BLOOD No comment entered. Ordering Provider: CAIN PERALES Report Released Date/Time: Oct 14, 2023 03:38 PM Reporting Lab: [facility] [phone] Performing Lab: [facility] [phone] CBC HEMOGLOBIN [MASS/VOLU ME] IN BLOOD 15.0 g/dL 13.1 - 16.8 10/13 Specimen Type: BLOOD No comment entered. Ordering Provider: CAIN PERALES Report Released Date/Time: Oct 14, 2023 03:38 PM Reporting Lab: [facility] [phone] Performing Lab: [facility] CBC HEMATOCRIT [VOLUME FRACTION] OF BLOOD 42.7 38.2 - 48.4 10/13 Specimen Type: BLOOD No comment entered. Ordering Provider: CAIN PERALES Report Released Date/Time: Oct 14, 2023 03:38 PM Reporting Lab: [facility] [place] [address] Performing Lab: [facility] DIVISION CBC MCV [ENTITIC VOLUME] BY AUTOMATED COUNT 89.1 fL 80.0 - 100.0 10/13 Specimen Type: BLOOD No comment entered. Ordering Provider: CAIN PERALES Report Released Date/Time: Oct 14, 2023 03:38 PM Reporting Lab: [facility] [place] [address] Performing Lab: [facility] DIVISION CBC MCH [ENTITIC MASS] BY AUTOMATED COUNT 31.3 pg 27.0 - 34.0 10/13 Specimen Type: BLOOD No comment entered. Ordering Provider: CAIN PERALES Report Released Date/Time: Oct 14, 2023 03:38 PM Reporting Lab: [facility] [place] [address] Performing Lab: [facility] DIVISION CBC MCHC [MASS/VOLU ME] BY AUTOMATED COUNT 35.1 g/dL 33.0 - 36.0 10/13 Specimen Type: BLOOD No comment entered. Ordering Provider: CAIN PERALES Report Released Date/Time: Oct 14, 2023 03:38 PM Reporting Lab: [facility] [place] [address] Performing Lab: [facility] DIVISION CBC PLATELETS [#/VOLUME] IN BLOOD BY AUTOMATED COUNT 284 10*3/uL 150 - 400 10/13 Specimen Type: BLOOD No comment entered. Ordering Provider: CAIN PERALES Report Released Date/Time: Oct 14, 2023 03:38 PM Reporting Lab: [facility] [place] [address] Performing Lab: [facility] DIVISION CBC PLATELET MEAN VOLUME [ENTITIC VOLUME] IN BLOOD BY AUTOMATED COUNT 10.4 fL 7.5 - 11.2 10/13 Specimen Type: BLOOD No comment entered. Ordering Provider: CAIN PERALES Report Released Date/Time: Oct 14, 2023 03:38 PM Reporting Lab: [facility] [place] [address] Performing Lab: [facility] DIVISION CBC ERYTHROCYT E DISTRIBUTI ON WIDTH [RATIO] BY AUTOMATED COUNT 11.6 11.8 - 15.1 10/13 L Specimen Type: BLOOD No comment entered. Ordering Provider: CAIN PERALES Report Released Date/Time: Oct 14, 2023 03:38 PM Reporting Lab: [facility] [place] [address] Performing Lab: [facility] DIVISION CBC LYMPHOCYTE S/100 LEUKOCYTES IN BLOOD BY AUTOMATED COUNT 26 10/13 Specimen Type: BLOOD No comment entered. Ordering Provider: CAIN PERALES Report Released Date/Time: Oct 14, 2023 03:38 PM Reporting Lab: [facility] [place] [address] Performing Lab: [facility] DIVISION CBC MONOCYTES/ 100 LEUKOCYTES IN BLOOD BY AUTOMATED COUNT 5 10/13 Specimen Type: BLOOD No comment entered. Ordering Provider: CAIN PERALES Report Released Date/Time: Oct 14, 2023 03:38 PM Reporting Lab: [facility] [place] [address] Performing Lab: [facility] DIVISION CBC NEUTROPHIL S/100 LEUKOCYTES IN BLOOD BY AUTOMATED COUNT 65 10/13 Specimen Type: BLOOD No comment entered. Ordering Provider: CAIN PERALES Report Released Date/Time: Oct 14, 2023 03:38 PM Reporting Lab: [facility] [place] [address] Performing Lab: [facility] DIVISION CBC EOSINOPHIL S/100 LEUKOCYTES IN BLOOD BY AUTOMATED COUNT 3 10/13 Specimen Type: BLOOD No comment entered. Ordering Provider: CAIN PERALES Report Released Date/Time: Oct 14, 2023 03:38 PM Reporting Lab: [facility] [place] [address] Performing Lab: [facility] DIVISION CBC BASOPHILS/ 100 LEUKOCYTES IN BLOOD BY AUTOMATED COUNT 1 10/13 Specimen Type: BLOOD No comment entered. Ordering Provider: CAIN PERALES Report Released Date/Time: Oct 14, 2023 03:38 PM Reporting Lab: [facility] [place] [address] Performing Lab: [facility] DIVISION CBC LYMPHOCYTE S [#/VOLUME] IN BLOOD BY AUTOMATED COUNT 2.38 10*3/uL 0.77 - 4.50 10/13 Specimen Type: BLOOD No comment entered. Ordering Provider: CAIN PERALES Report Released Date/Time: Oct 14, 2023 03:38 PM Reporting Lab: [facility] [place] [address] Performing Lab: [facility] DIVISION CBC MONOCYTES [#/VOLUME] IN BLOOD BY AUTOMATED COUNT 0.47 10*3/uL 0.19 - 0.80 10/13 Specimen Type: BLOOD No comment entered. Ordering Provider: CAIN PERALES Report Released Date/Time: Oct 14, 2023 03:38 PM Reporting Lab: [facility] [place] [address] Performing Lab: [facility] DIVISION CBC NEUTROPHIL S [#/VOLUME] IN BLOOD BY AUTOMATED COUNT 5.88 10*3/uL 2.10 - 8.00 10/13 Specimen Type: BLOOD No comment entered. Ordering Provider: CAIN PERALES Report Released Date/Time: Oct 14, 2023 03:38 PM Reporting Lab: [facility] [place] [address] Performing Lab: [facility] DIVISION CBC EOSINOPHIL S [#/VOLUME] IN BLOOD BY AUTOMATED COUNT 0.24 10*3/uL 0.00 - 0.60 10/13 Specimen Type: BLOOD No comment entered. Ordering Provider: CAIN PERALES Report Released Date/Time: Oct 14, 2023 03:38 PM Reporting Lab: [facility] [place] [address] Performing Lab: [facility] DIVISION CBC BASOPHILS [#/VOLUME] IN BLOOD BY AUTOMATED COUNT 0.07 10*3/uL 0.00 - 0.20 04/02 /2024 Specimen Type: BLOOD No comment entered. Ordering Provider: CAIN PERALES Report Released Date/Time: Oct 14, 2023 03:38 PM Reporting Lab: [facility] [place] [address] Performing Lab: [facility] DIVISION COMPREHE NSIVE METABOLI C PANEL CREATININE [MASS/VOLU ME] IN SERUM OR PLASMA 1.04 mg/dL 0.70 - 1.30 10/13 Specimen Type: PLASMA Comment: No hemolysis noted. Ordering Provider: CAIN PERALES Report Released Date/Time: Oct 14, 2023 03:38 PM Reporting Lab: [facility] [place] [address] Performing Lab: [facility] DIVISION COMPREHE NSIVE METABOLI C PANEL UREA NITROGEN [MASS/VOLU ME] IN SERUM OR PLASMA 22.5 mg/dL 9.0 - 25.0 10/13 Specimen Type: PLASMA Comment: No hemolysis noted. Ordering Provider: CAIN PERALES Report Released Date/Time: Oct 14, 2023 03:38 PM Reporting Lab: [facility] [place] [address] Performing Lab: [facility] DIVISION COMPREHE NSIVE METABOLI C PANEL GLUCOSE [MASS/VOLU ME] IN SERUM OR PLASMA 83 mg/dL 72 - 99 10/13 Specimen Type: PLASMA Comment: No hemolysis noted. Ordering Provider: CAIN PERALES Report Released Date/Time: Oct 14, 2023 03:38 PM Reporting Lab: [facility] [place] [address] Performing Lab: [facility] [id number] [place] [address] DIVISION COMPREHE NSIVE METABOLI C PANEL SODIUM [MOLES/VOL UME] IN SERUM OR PLASMA 140 meq/L 136 - 145 10/13 Specimen Type: PLASMA Comment: No hemolysis noted. Ordering Provider: CAIN PERALES Report Released Date/Time: Oct 14, 2023 03:38 PM Reporting Lab: [facility] [place] [address] Performing Lab: [facility] DIVISION COMPREHE NSIVE METABOLI C PANEL POTASSIUM [MOLES/VOL UME] IN SERUM OR PLASMA 4.1 meq/L 3.5 - 5.0 10/13 Specimen Type: PLASMA Comment: No hemolysis noted. Ordering Provider: CAIN PERALES Report Released Date/Time: Oct 14, 2023 03:38 PM Reporting Lab: [facility] [place] [address] Performing Lab: [facility] DIVISION COMPREHE NSIVE METABOLI C PANEL CHLORIDE [MOLES/VOL UME] IN SERUM OR PLASMA 104 meq/L 98 - 107 10/13 Specimen Type: PLASMA Comment: No hemolysis noted. Ordering Provider: CAIN PERALES Report Released Date/Time: Oct 14, 2023 03:38 PM Reporting Lab: [facility] [place] [address] Performing Lab: [facility] DIVISION COMPREHE NSIVE METABOLI C PANEL CARBON DIOXIDE, TOTAL [MOLES/VOL UME] IN SERUM OR PLASMA 27 meq/L 22 - 31 10/13 Specimen Type: PLASMA Comment: No hemolysis noted. Ordering Provider: CAIN PERALES Report Released Date/Time: Oct 14, 2023 03:38 PM Reporting Lab: [facility] [place] [address] Performing Lab: [facility] DIVISION COMPREHE NSIVE METABOLI C PANEL CALCIUM [MASS/VOLU ME] IN SERUM OR PLASMA 9.4 mg/dL 8.4 - 10.4 10/13 Specimen Type: PLASMA Comment: No hemolysis noted. Ordering Provider: CAIN PERALES Report Released Date/Time: Oct 14, 2023 03:38 PM Reporting Lab: [facility] [place] [address] Performing Lab: [facility] DIVISION COMPREHE NSIVE METABOLI C PANEL PROTEIN [MASS/VOLU ME] IN SERUM OR PLASMA 7.4 g/dL 6.0 - 8.6 10/13 Specimen Type: PLASMA Comment: No hemolysis noted. Ordering Provider: CAIN PERALES Report Released Date/Time: Oct 14, 2023 03:38 PM Reporting Lab: [facility] [place] [address] Performing Lab: [facility] DIVISION COMPREHE NSIVE METABOLI C PANEL ALBUMIN [MASS/VOLU ME] IN SERUM OR PLASMA 4.4 g/dL 3.4 - 5.0 10/13 Specimen Type: PLASMA Comment: No hemolysis noted. Ordering Provider: CAIN PERALES Report Released Date/Time: Oct 14, 2023 03:38 PM Reporting Lab: [facility] [place] [address] Performing Lab: [facility] DIVISION COMPREHE NSIVE METABOLI C PANEL BILIRUBIN. TOTAL [MASS/VOLU ME] IN SERUM OR PLASMA 0.3 mg/dL 0.2 - 1.2 10/13 Specimen Type: PLASMA Comment: No hemolysis noted. Ordering Provider: CAIN PERALES Report Released Date/Time: Oct 14, 2023 03:38 PM Reporting Lab: [facility] [place] [address] Performing Lab: [facility] DIVISION COMPREHE NSIVE METABOLI C PANEL ALKALINE PHOSPHATAS E [ENZYMATIC ACTIVITY/V OLUME] IN SERUM OR PLASMA 54 U/L 40 - 150 10/13 Specimen Type: PLASMA Comment: No hemolysis noted. Ordering Provider: CAIN PERALES Report Released Date/Time: Oct 14, 2023 03:38 PM Reporting Lab: [facility] [place] [address] Performing Lab: [facility] DIVISION COMPREHE NSIVE METABOLI C PANEL ASPARTATE AMINOTRANS FERASE [ENZYMATIC ACTIVITY/V OLUME] IN SERUM OR PLASMA 33 U/L 5 - 34 10/13 Specimen Type: PLASMA Comment: No hemolysis noted. Ordering Provider: CAIN PERALES Report Released Date/Time: Oct 14, 2023 03:38 PM Reporting Lab: [facility] [place] [address] Performing Lab: [facility] DIVISION COMPREHE NSIVE METABOLI C PANEL ALANINE AMINOTRANS FERASE [ENZYMATIC ACTIVITY/V OLUME] IN SERUM OR PLASMA 31 U/L 8 - 40 10/13 Specimen Type: PLASMA Comment: No hemolysis noted. Ordering Provider: CAIN PERALES Report Released Date/Time: Oct 14, 2023 03:38 PM Reporting Lab: [facility] [address] Performing Lab: [facility] [id number] [place] [address] COMPREHE NSIVE METABOLI C PANEL GLOMERULAR FILTRATION RATE/1.73 SQ M.PREDICTE D [VOLUME RATE/AREA] IN SERUM, PLASMA OR BLOOD BY CREATININE -BASED FORMULA (CKD-EPI 2020) 100.93 60 10/13 Specimen Type: PLASMA Comment: No hemolysis noted. Ordering Provider: CAIN PERALES Report Released Date/Time: Oct 14, 2023 03:38 PM Reporting Lab: [facility] [address] Performing Lab: [facility] [id number] Vital Signs Combined list of inpatient and outpatient Vital Signs from Department of Defense and Veterans Affairs, ranging from 12 months to all on record, depending upon the facility. Vital Sign Value Date Comments Source SYSTOLIC BLOOD PRESSURE 133 07/08/2024 09:52:15 [facility] DIASTOLIC BLOOD PRESSURE 82 07/08/2024 09:52:15 [facility] PULSE OXIMETRY 99 07/08/2024 09:52:15 [facility] WEIGHT 229.7 07/08/2024 09:52:15 [facility] BMI 37 kg/m2 07/08/2024 09:52:15 [facility] PAIN 2 07/08/2024 09:52:15 [facility] TEMPERATURE 98.1 07/08/2024 09:52:15 [facility] PULSE 73 07/08/2024 09:52:15 [facility] RESPIRATION 16 07/08/2024 09:52:15 [facility] SYSTOLIC BLOOD PRESSURE 130 04/15/2024 11:54:00 [facility] DIASTOLIC BLOOD PRESSURE 75 04/15/2024 11:54:00 [facility] PAIN 6 04/15/2024 11:54:00 [facility] TEMPERATURE 99.4 04/15/2024 11:54:00 [facility] PULSE 99 04/15/2024 11:54:00 [facility] RESPIRATION 18 04/15/2024 11:54:00 [facility] SYSTOLIC BLOOD PRESSURE 123 03/08/2024 07:40:54 [facility] DIASTOLIC BLOOD PRESSURE 75 03/08/2024 07:40:54 [facility] PULSE OXIMETRY 99 03/08/2024 07:40:54 [facility] WEIGHT 231.3 03/08/2024 07:40:54 [facility] BMI 37 kg/m2 03/08/2024 07:40:54 [facility] PAIN 4 03/08/2024 07:40:54 [facility] HEIGHT 66 03/08/2024 07:40:54 [facility] TEMPERATURE 98.3 03/08/2024 07:40:54 [facility] PULSE 56 03/08/2024 07:40:54 [facility] RESPIRATION 20 03/08/2024 07:40:54 [facility] Encounters Combined list of: 1) Encounters from Department of Veterans Affairs facilities going backup to the last 18 months, not all VA inpatient encounters are included; 2) Encounters from the Department of Defense facilities going backup to 280 months. Location Location Details Encounter Type Encounter Number Reason For Visit Attending Provider ADM Date DC Date Status Disposition Source [facility] Outpatient Encounter [id number] 09/21 [facility] Outpatient Encounter [id number] HELENE GONZALEZ RRY 09/28 [facility] OFFICE O/P EST MOD 30 MIN [id number] Diagnos is: ICD-10- CM Z72.0 Tobacco use YESICA CARROLL 10/13 [facility] Encounter [id number] Diagnos is: ICD-10- CM M25.562 Pain in left knee YESICA CARROLL 10/19 [facility] Out[facility] Encounter [id number] CHUY HERNANDEZ 10/20 [facility] Outpatient Encounter [id number] 11/09 [facility] Outpatient Encounter [id number] 11/26 [facility] Outpatient Encounter [id number] 01/12 [facility] Outpatient Encounter [id number] [place] 03/03 [facility] Outpatient Encounter [id number] 03/08 [facility] OFFICE O/P NEW MOD 45 MIN [id number] Diagnos is: ICD-10- CM Z00.8 Encount er for other general examina tion INGRID HARTLEY 03/08 [place] [facility] Outpatient Encounter [id number] [place] 03/08 [facility] Outpatient Encounter [id number] 03/08 [facility] Outpatient Encounter [id number] 03/08 [facility] Outpatient Encounter [id number] INGRID HARTLEY MA 03/08 [facility] ACUPUNCT W/O STIMUL 15 MIN [id number] Diagnos is: ICD-10- CM M54.50 Low back pain, unspeci fied MENESESABNER TRUJILLO 03/18 [facility] CASE MANAGEMENT [id number] ME BILL MOLINA 03/22 [facility] OFF/OP EST MAY X REQ PHY/QHP [id number] Diagnos is: ICD-10- CM M25.572 Pain in left ankle and joints of left foot AUSTYN OSCAR I L 03/25 [facility] CB OFF/OP EST MAY X REQ PHY/QHP [id number] Diagnos is: ICD-10- CM Z76.0 Encount er for issue of repeat prescri ption STEFANIASAVANNA Casey 03/25 [facility] TARGETED CASE MANAGEMENT [id number] SOL POLLARD 03/29 [facility] Outpatient Encounter [id number] Diagnos is: ICD-10- CM N45.1 EpididINGRID Chaudhry [facility] 03/31 [facility] Outpatient Encounter [id number] 04/08 [facility] ACUPUNCT W/O STIMUL 15 MIN [id number] Diagnos is: ICD-10- CM M54.50 Low back pain, unspeci fied ABNER MENESES 04/08 [facility] Outpatient Encounter [id number] 04/12 [facility] OFF/OP EST MAY X REQ PHY/QHP [id number] Diagnos is: ICD-10- CM R10.9 Unspeci fied abdomin al pain SAVANNA AGUIAR 04/15 [facility] HC PRO PHONE CALL 5-10 MIN [id number] Diagnos is: ICD-10- CM Z76.0 Encount er for issue of repeat prescri ption SAVANNA AGUIAR 04/16 [facility] Outpatient Encounter [id number] 04/19 [facility] Outpatient Encounter [id number] 04/19 [facility] Outpatient Encounter [id number] 04/21 [facility] Outpatient Encounter [id number] 04/23 [facility] OFFICE O/P EST MOD 30 MIN [id number] Diagnos is: ICD-10- CM F32.A Depress ion, unspeci fied JASPER,LE ONOR BRYCE C 04/30 [facility] OFFICE O/P EST MOD 30 MIN [id number] Diagnos is: ICD-10- CM F32.A Depress ion, unspeci fied JASPER,LE ONOR BRYCE C 04/30 [facility] OFFICE O/P EST MOD 30 MIN [id number] Diagnos is: ICD-10- CM Z72.0 Tobacco use JERSON JOSEPH SA S 07/08 [facility] OFF/OP EST MAY X REQ PHY/QHP [id number] Diagnos is: ICD-10- CM G47.33 Obstruc tive sleep apnea (adult) (pediat huey) ANAYELI ROSALES LLRachel G 07/09 [facility] CASE MANAGEMENT [id number] SOL POLLARD 07/16 [facility] SYNCH AUDIO-ONLY NEW LOW 30 [id number] Diagnos is: ICD-10- CM F43.23 Adjustm ent disorde r with mixed anxiety and depress ed mood CALVIN RIVERACARY Ortega BENJI 07/19 [facility] OFFICE O/P NEW MOD 45 MIN [id number] Diagnos is: ICD-10- CM F41.0 Panic disorde r [episod ic paroxys mal anxiety ] BERNY WILLIAMSON 07/20 [facility] Outpatient Encounter [id number] KENNEDI KELLY 07/20 [facility] CASE MANAGEMENT [id number] SOL POLLARD 07/26 [facility] CASE MANAGEMENT [id number] Diagnos is: ICD-10- CM Z71.9 Digital Librarian ing, unspeci fied JESSEME BILL GOULD 08/05 [facility] Outpatient Encounter [id number] HELENE GONZALEZ RRRachel 08/05 [facility] SPEECH SOUND LANG COMPREHEN [id number] Diagnos is: ICD-10- CM R41.841 Cogniti ve communi cation deficit BROOKLYNN SWEET Y 08/13 [facility] SYNCH AUDIO-VIDE O EST LOW 20 [id number] Diagnos is: ICD-10- CM M54.2 Cervica lgia ME MOSES JIMÉNEZ 08/16 [facility] Outpatient Encounter [id number] 08/20 [facility] PSYTX W PT 30 MINUTES [id number] Diagnos is: ICD-10- CM F90.9 Attenti on-defi cit hyperac tivity disorde r, unspeci fied type CHAKKAMPAR AMBIL,BERNY 09/07 [facility] Outpatient Encounter [id number] 09/10 [facility] Outpatient Encounter [id number] 11/08 [facility] Outpatient Encounter [id number] 11/15 [facility] PSYTX W PT 30 MINUTES [id number] Diagnos is: ICD-10- CM F90.9 Attenti on-defi cit hyperac tivity disorde r, unspeci fied type CHAKKAMPAR AMBIL,EBRNY 11/[address] [facility] N Social History Combined list of available smoking, tobacco, and other social history from Department of Defense and Veterans Affairs facilities. Social History Type Response Date Comment [facility] e [facility] 03/03/2024 [facility] History of tobacco use NE-TOBACCO QUIT 1 TO < 5 YRS 09/29/2023 [facility] History of tobacco use VA-TOBACCO FORMER USER 05/30/2022 [facility] History of tobacco use VA-TOBACCO FORMER USER 12/15/2020 [facility] History of tobacco use VA-TOBACCO USE CO UNSEL NO 08/20/2019 [facility] History of tobacco use VA-TOBACCO USE CO UNSEL YES 07/29/2019 [facility] Plan of Care List of future care activities from Department of [facility] Affairs facilities. Additional future care activities may be listed in the Assessment and Plan section. Date/Time Care Activity Care Activity Detail Facili ty 03/17/2025 AMBULATORY - PSYCHIATRY AMBULATORY - PSYC HIATRY [facility]
--- OUTSIDE RECORDS SUMMARY | 2025-01-19 07:45 | XMS_ITS | Encounter Summary ---
Author Name [facility] [place] [facility] [place] Address [address] [place] [address] Care Team Providers Care Tube Dispatcher Name Role Phone GREGORY JOHNSON Primary Care Provider Unavailabl MUKEHS Lieberman Primary Care Provider Unavailab le Selected Encounter This section includes the information on record at [place] for the Encounter. Date/Time Encounter Type Encounter Description Reason Provider Source Mar 25, 2024 02:37 PM OFF/OP EST NOVEMBER X REQ Y/Q PRIMARY CARE/MEDICINE ICD-10-CM Z76.0 Encounter for issue of repeat prescription ROXANA AGUIAR E Encounter Template Text not used by [place] Assessments - Encounter Diagnoses This section includes the primary and secondary diagnoses documented for the Encounter. Date/Time Primary/Secondary Diagnosis Diagnosis Name Provider Source Mar 25, 2024 03:05 PM PRIMARY Encounter for issue of repeat prescription TIM AGUIAR [facility] Mar 25, 2024 03:05 PM SECONDARY Anxiety disorder, unspecified TIM AGUIAR [facility] Plan of Treatment: Future Appointments (+ 6 [...] 20 appointments. The data comes from all [facility]. Appointment Date/Time Appointment Type Appointme nt Facility Name Mar 31, 2024 01:00 PM AMBULATORY - MEDICINE [facility] Apr 12, 2024 01:00 PM [facility] [place] [facility] [place] 19, 2024 03:00 PM [facility] Apr 21, 2024 08:30 AM [facility] Apr 23, 2024 11:00 AM [facility] Apr 30, 2024 09:00 AM [facility] - PS[facility]ATRY [facility] Jul 08, 2024 03:30 PM AMBULATORY - MEDICINE [facility] Jul 19, 2024 10:00 AM AMBULATORY - PSYCHIATRY [facility] Jul 20, 2024 08:00 AM AMBULATORY - PSYCHIATRY [facility] Aug 03, 2024 07:30 AM AMBULATORY - REHAB MEDICIN E [facility] Aug 13, 2024 09:30 AM AMBULATORY - REHAB MEDICIN E [facility] Aug 16, 2024 01:30 PM AMBULATORY - MEDICINE [facility] Sep 07, 2024 01:30 PM AMBULATORY - PSYCHIATRY [facility] Sep 09, 2024 03:00 PM AMBULATORY - REHAB MEDICIN E [facility] Sep 10, 2024 12:00 PM AMBULATORY - NONE [facility] Active, Pending, and [...] of theEncounter. The data comes from all [facility]. Test Date/Time Test Type Test Details Facility Name Mar 08, 2024 12:00 AM Laboratory - Chemi stry Order HEP C AB, TOTAL BLOOD in GOLD TOP TUBE SERUM SP ONCE [facility] Lab Results: +/- 30 days of the encounter This section includes the Chemistry and Hematology Lab Results on record with [facility] for the patient. Radiology Reports and Pathology Reports are provided separately, in subsequent sections. Lab Results This section contains the Chemistry/Hematology Results that were resulted 30 days before or 30 daysafter the date of the Encounter. Date/Time Source Result Type Result - Unit Interpretation Reference Range Specimen Type Comment Mar 02, 2024 08:23 AM [facility] CBC + DIFF BLOOD Specimen Type: BLOOD No comment entered. Ordering Provider: GREGORY JOHNSON Report Released Date/Time: Feb 12, 2024 03:37 PM Reporting Lab: [facility] [id number] [place] [phone] Performing Lab: [facility] [id number] [place] [phone] HGB 16.2 g/dL 13.3-17.7 HCT 48.3 39.0-52.0 [...] 56.2 41.0-85.0 NEUTROPHILS # (AUTO) 3580 /uL [phone] MPV 11.5 fL 9.0-12.4 IG # 10 /uL 0-60 NRBC# 0 /uL 0-0 IG % 0.2 0.0-0.9 NRBC% 0.0 0.0-0.0 Mar 02, 2024 08:23 AM [facility] ANION/OSMOLAL GAP PANEL SERUM Specimen Type: SERUM Comment: eGFR CKD-EPI eGFR calculated using the 2020 EXX-IFH-anfplinwsr equation; units of measure are mL/min/1.73m~2. eGFR [...] G5 eGFR <15 mL/min/1.73m~2 Ordering Provider: GREGORY OJHNSON Report Released Date/Time: Feb 12, 2024 03:37 PM Reporting Lab: [facility] [id number] [place] [phone] Performing Lab: [address] [address] UREA NITROGEN 14 mg/dL 5-25 GLUCOSE 95 mg/dL 70-110 SODIUM 137 mmol/L 136-146 POTASSIUM 4.3 mmol/L 3.5-5.3 CARBON DIOXIDE 29.6 mmol/L 24-31 CHLORIDE 101 mmol/L 95-110 EGFR 99 >=60 CREATININE idms 1.06 mg/dL 0.52-1.28 ANION GAP Serum 6.4 mmol/L 3-Mar 02, 2024 08:23 AM [facility] METABOLIC PANEL SERUM Specimen Type: SERUM Comment: eGFR CKD-EPI eGFR calculated using the 2020 PDZ-FPX-dyfzzipzwp equation; units of measure are mL/min/1.73m~2. eGFR [...] G5 eGFR <15 mL/min/1.73m~2 Ordering Provider: GREGORY JOHNSON Report Released Date/Time: Feb 12, 2024 03:37 PM Reporting Lab: [address] [address] Performing Lab: [address] [address] BILIRUBIN, TOTAL 0.6 mg/dL 0.2-1 ASPARTATE AMINOTRANSFERASE 20 U/L 13-35 ALKALINE PHOSPHATASE 51 U/L 33-94 ALANINE AMINOTRANSFERASE 26 U/L 7-45 CALCIUM 10.0 mg/dL 8.4-10.2 ALBUMIN 4.5 g/dL 3.2-4.8 Mar 02, 2024 08:23 AM [facility] LIPID PANEL SERUM Specimen Type: SERUM Comment: eGFR CKD-EPI eGFR calculated using the 2020 BML-OJH-gcpzkraply equation; units of measure are mL/min/1.73m~2. eGFR [...] G5 eGFR <15 mL/min/1.73m~2 Ordering Provider: GREGORY JOHNSON Report Released Date/Time: Feb 12, 2024 03:37 PM Reporting Lab: [facility] [id number] [place] [phone] Performing Lab: [facility] [id number] [place] [phone] CHOLESTEROL 229 mg/dL H <=200 TRIGLYCERIDE 256 mg/dL H 40-160 HDL 56.5 mg/dL >=40 LDL CHOLESTEROL, CALC 121 mg/dL <130 CHOL/HDL RATIO 4.1 Mar 02, 2024 08:23 AM [facility] THYROID STIMULATING HORMONE (TSH3 ULTRA) SERUM Specimen Type: SERUM No comment entered. Ordering Provider: GREGORY JOHNSON Report Released Date/Time: Feb 12, 2024 03:37 PM Reporting Lab: [address] [address] Performing Lab: [address] [address] THYROID STIMULATING HORMONE (TSH3 ULTRA) 1.059 u [IU]/mL 0.55-4.78 Mar 02, 2024 08:23 AM [facility] URINALYSIS ONLY URINE Specimen Type: URINE No comment entered. Ordering Provider: GREGORY JOHNSON Report Released Date/Time: Feb 12, 2024 03:37 PM Reporting Lab: [address] [address] Performing Lab: [address] [address] URINE SPECIFIC GRAVITY 1.023 1.001-1.0 29 URINE LEUKOCYTE ESTERASE Negative Negati ve-25 URINE APPEARANCE Clear Clear URINE BILIRUBIN Negative mg/dL Negative URINE COLOR Yellow Yellow URINE GLUCOSE Normal mg/dL Normal URINE KETONES Negative mg/dL Negative-Tr maia URINE NITRITE Negative Negative URINE OCCULT BLOOD Negative mg/dL Negati ve-0.03 URINE PROTEIN Negative mg/dL Negative-20 URINE UROBILINOGEN Normal mg/dL Normal URINE PH 6.5 5.0-8.0 Social History: Smoking Status (Most current) and Tobacco Use (All prior to encounter date) This section includes the most current, and the historical, smoking and tobacco- related health factors from the [place] facility where the Encounter took place. Current Smoking Status This section includes the most current smoking, or tobacco-related health factor, from the [place] facility where the Encounter took place. Date/Time Current Smoking Status Comment Facil ity Jul 29, 2019 08:45 AM VA-TOBACCO USE COMPANY ACCOUNTANT YES [facility] Tobacco Use History This section includes a history of the smoking, or tobacco-related health factors, that were collected on or before the date of the Encounter. The data comes from the [place] facility where the Encounter took place. Date/Time Smoking Status/Tobacco Use Comment F acility Jul 29, 2019 08:45 AM VA-TOBACCO USE ADVICE [facility] Jul 29, 2019 08:45 AM VA-TOBACCO USE COMPANY ACCOUNTANT YES [facility] Jul 29, 2019 08:45 AM VA-TOBACCO USE MED NOTIFY PROVIDER Mehrdad Gu [facility] Jul 29, 2019 08:45 AM VA-TOBACCO USE WI 30 MIN OF WAKEUP [facility] Jul 29, 2019 08:45 AM VA-TOBACCO USER EVERY DAY [facility] Encounter Notes: All associated encounter notes This section contains the clinical notes associated to the Encounter. Date/Time Encounter Note(s) Provider Source Mar 25, 2024 02:37 PM PRIMARY CARE NURSI NAVDEEP NOTE: LOCAL TITLE: PRIMARY CARE RN SCREENING NOTE STANDARD TITLE: PRIMARY CARE NURSING NOTE DATE OF NOTE: MAR 25, 2024@14:37 ENTRY DATE: MAR 25, 2024@14:37:42 AUTHOR: GIANNI AGUIAR COSIGNER: URGENCY: STATUS: COMPLETED VISIT TYPE: In person CONTACT INFO Patient address/phone number verified or reported to billing associate for correction. Today's visit is at patient's assigned primary care facility. NURSING ASSESSMENT: Patient REVA WISE is a 28yo MALE. *REASON FOR VISIT : MEDICATION REQUESTS Refill: Paroxetine hcl 10mg tab every day BEHAVIORAL SCREENING BEHAVIOR: Calm, Cooperative No, patient does not have thoughts of suicide No, patient does not have thoughts of harming others *FOCUSED CLINICAL OBSERVATION calm, states anxiety has esculated requested to resume medications as prescribed PLAN/INTERVENTIONS: [facility] BRIDGE PRESCRIPTION PROVIDED TO VET THIS DATE: MAR 25, 2024 PCP WHO PROVIDED BRIDGE: Dr. Johnson REASON BRIDGE RX WAS ISSUED DUE TO: Acute Need MEDICATION/DOSAGE/SIG: Paroxetine 10mg 1 x daily take one by mouth 1 time daily 10 day #10 PHARMACY FAXED TO: Mike fax [phone] PATIENT NOTIFIED: Understands & will pick-up ALLEGIES: Patient has answered NKA Telephone and fax confirmation Rx was received by local dispensing pharmacy of [facility]'s choice, as above. *EVALUATION/DISPOSITION Recommendation/discussed with: [place] PCMHI consulted for assisitance with prescription MH consult pending PCM to request open access for the med request until scheduled appointment /es/ GIANNI BARRON SENIOR ADVOCATE Signed: 03/25/2024 15:06 GIANNI AGUIAR
--- OUTSIDE RECORDS SUMMARY | 2025-01-19 07:45 | XMS_ITS | Encounter Summary ---
Author Name [facility] [place] [facility] [place] Address [address] [place] [address] Care Team Providers Care Medical Equipment Sales Name Role Phone GREGORY HARTLEY Primary Care Provider Unavailabl MUKESH Lieberman Primary Care Provider Unavailab le Selected Encounter This section includes the information on record at [place] for the Encounter. Date/Time Encounter Type Encounter Description Reason Provider Source Mar 29, 2024 03:04 PM TARGETED CASE MANAGEMENT ADMIN PAT ACTIVTIES (MASNONCT) MAYELIN POLLARD Encounter Template Text not used by [place] Plan of Treatment: Future Appointments (+ 6 months) and Future Tests (+/- 45 days) The Plan of Treatment section includes future care activities for the patient from all [place] treatmentfacilities. This section includes future appointments and future orders which are active, pending or scheduled. Future Appointments This section includes appointments that were scheduled to occur 6 months from the date of the Encounter, up to a maximum of 20 appointments. The data comes from all [place] treatment facilities. Appointment Date/Time Appointment Type Appointme nt Facility Name Mar 31, 2024 01:00 PM AMBULATORY - MEDICINE [facility] Apr 12, 2024 01:00 PM AMBULATORY - NONE [facility] Apr 19, 2024 03:00 PM AMBULATORY - MEDICINE [facility] Apr 21, 2024 08:30 AM AMBULATORY - NONE [facility] Apr 23, 2024 11:00 AM AMBULATORY - MEDICINE [facility] Apr 30, 2024 09:00 AM AMBULATORY - PSYCHIATRY [facility] Jul 08, 2024 03:30 PM AMBULATORY - MEDICINE [facility] Jul 19, 2024 10:00 AM AMBULATORY - PSYCHIATRY [facility] Jul 20, 2024 08:00 AM AMBULATORY - PSYCHIATRY [facility] Aug 03, 2024 07:30 AM AMBULATORY - REHAB MEDICIN E [facility] Aug 13, 2024 09:30 AM AMBULATORY - REHAB MEDICIN E [facility] Aug 16, 2024 01:30 PM AMBULATORY - MEDICINE [facility] Sep 07, 2024 01:30 PM AMBULATORY - PSYCHIATRY [facility] Sep 09, 2024 03:00 PM AMBULATORY - REHAB MEDICIN E [facility] Sep 10, 2024 12:00 PM AMBULATORY - NONE [facility] Active, Pending, and Scheduled Orders This section includes a listing of several types of active, pending, and scheduled orders, including clinic medications orders, diagnostic test orders, procedure orders and consult orders; where the start date of the order is 45 days before the date of the Encounter or 45 days after the date of theEncounter. The data comes from all [place] treatment facilities. Test Date/Time Test Type Test Details Facility Name Mar 08, 2024 12:00 AM Laboratory - Chemi stry Order HEP C AB, TOTAL BLOOD in GOLD TOP TUBE SERUM SP ONCE [facility] Lab Results: +/- 30 days of the encounter This section includes the Chemistry and Hematology Lab Results on record with [place] for the patient. Radiology Reports and Pathology Reports are provided separately, in subsequent sections. Lab Results This section contains the Chemistry/Hematology Results that were resulted 30 days before or 30 daysafter the date of the Encounter. Date/Time Source Result Type Result - Unit Interpretation Reference Range Specimen Type Comment Mar 02, 2024 08:23 AM [facility] CBC + DIFF BLOOD Specimen Type: BLOOD No comment entered. Ordering Provider: GREGORY HARTLEY Report Released Date/Time: Feb 12, 2024 03:37 PM Reporting Lab: [facility] [id number] [facility] [address] Performing Lab: [facility] [address] [address] [facility] [address] HGB 16.2 g/dL 13.3-17.7 HCT 48.3 39.0-52.0 [...] 56.2 41.0-85.0 NEUTROPHILS # (AUTO) 3580 /uL [phone] MPV 11.5 fL 9.0-12.4 IG # 10 /uL 0-60 NRBC# 0 /uL 0-0 IG % 0.2 0.0-0.9 NRBC% 0.0 0.0-0.0 Mar 02, 2024 08:23 AM [facility] ANION/OSMOLAL GAP PANEL SERUM Specimen Type: SERUM Comment: eGFR CKD-EPI eGFR calculated using the 2020 RIB-GJI-jtbpaadjza equation; units of measure are mL/min/1.73m~2. eGFR [...] 12, 2024 03:37 PM Reporting Lab: [address] [address] Performing Lab: [address] [address] UREA NITROGEN 14 mg/dL 5-25 GLUCOSE 95 mg/dL 70-110 SODIUM 137 mmol/L 136-146 POTASSIUM 4.3 mmol/L 3.5-5.3 CARBON DIOXIDE 29.6 mmol/L 24-31 CHLORIDE 101 mmol/L 95-110 EGFR 99 >=60 CREATININE idms 1.06 mg/dL 0.52-1.28 ANION GAP Serum 6.4 mmol/L 3-Mar 02, 2024 08:23 AM [facility] METABOLIC PANEL SERUM Specimen Type: SERUM Comment: eGFR CKD-EPI eGFR calculated using the 2020 VHG-AXG-awbbvdmnnw equation; units of measure are mL/min/1.73m~2. eGFR [...] Feb 12, 2024 03:37 PM Reporting Lab: [facility] [id number] [place] [phone] Performing Lab: [address] [address] BILIRUBIN, TOTAL 0.6 mg/dL 0.2-1 ASPARTATE AMINOTRANSFERASE 20 U/L 13-35 ALKALINE PHOSPHATASE 51 U/L 33-94 ALANINE AMINOTRANSFERASE 26 U/L 7-45 CALCIUM 10.0 mg/dL 8.4-10.2 ALBUMIN 4.5 g/dL 3.2-4.8 Mar 02, 2024 08:23 AM [facility] LIPID PANEL SERUM Specimen Type: SERUM Comment: eGFR CKD-EPI eGFR calculated using the 2020 DQT-DQN-ymiwhzkdzi equation; units of measure are mL/min/1.73m~2. eGFR [...] 12, 2024 03:37 PM Reporting Lab: [address] [address] Performing Lab: [address] [address] CHOLESTEROL 229 mg/dL H <=200 TRIGLYCERIDE 256 mg/dL H 40-160 HDL 56.5 mg/dL >=40 LDL CHOLESTEROL, CALC 121 mg/dL <130 CHOL/HDL RATIO 4.1 Mar 02, 2024 08:23 AM [facility] THYROID STIMULATING HORMONE (TSH3 ULTRA) SERUM Specimen Type: SERUM No comment entered. Ordering Provider: GREGORY HARTLEY Report Released Date/Time: Feb 12, 2024 03:37 PM Reporting Lab: [address] [address] Performing Lab: [facility] [address] [facility] [address] THYROID STIMULATING HORMONE (TSH3 ULTRA) 1.059 u [IU]/mL 0.55-4.78 Mar 02, 2024 08:23 AM [facility] URINALYSIS ONLY URINE Specimen Type: URINE No comment entered. Ordering Provider: GREGORY HARTLEY Report Released Date/Time: Feb 12, 2024 03:37 PM Reporting Lab: [facility] [address] [facility] [address] Performing Lab: [facility] [address] [facility] [address] URINE SPECIFIC GRAVITY 1.023 1.001-1.0 29 URINE [...] and tobacco- related health factors from the [place] facility where the Encounter took place. Current Smoking Status This section includes the most current smoking, or tobacco-related health factor, from the [place] facility where the Encounter took place. Date/Time Current Smoking Status Comment Gómez butler Sep 29, 2023 03:27 PM VA-TOBACCO FORMER USER [facility] Tobacco Use History This section includes a history of the smoking, or tobacco-related health factors, that were collected on or before the date of the Encounter. The data comes from the [place] facility where the Encounter took place. Date/Time Smoking Status/Tobacco Use Comment Marilyn freire Sep 29, 2023 03:27 PM VA-TOBACCO QUIT 1 TO < 5 YRS [facility] Dec 15, 2020 12:10 PM VA-TOBACCO FORMER USER [facility] Dec 15, 2020 12:10 PM VA-TOBACCO QUIT 1 TO < [address] [facility] Encounter Notes: All associated encounter notes This section contains the clinical notes associated to the Encounter. Date/Time Encounter Note(s) Provider Source Mar 29, 2024 03:04 PM PRIMARY CARE NOTE: LOCAL TITLE: [facility] TRAVELING PCMM NOTE [facility] STANDARD TITLE: PRIMARY CARE NOTE DATE OF NOTE: MAR 29, 2024@15:04 ENTRY DATE: MAR 29, 2024@15:04:27 AUTHOR: MAYELIN POLLARD EXP COSIGNER: URGENCY: STATUS: COMPLETED Traveling/Relocating Care Coordination Patient-Centered Management Module (PCMM) New patient PCMM received and approved for permanent relocation of care to: Per [place] chart review will establish care with a PCP on: 03/08/24 [facility]-PACT TEAM 1 Mary Carmen HARTLEY Uniform Claim Committee - Taxonomy (NUCC) NUCC Taxonomy Description: Allopathic & Osteopathic Physicians NUCC Taxonomy Code: [id number] Provider Address: , Provider Phone: [phone] WLA Please note the sending VA is responsible until care is established at the receiving [facility]. /naga/ MAYELIN POLLARD REGISTERED NURSE, HOME TELEHEALTH COORDINATOR Signed: 03/29/2024 15:04 MAYELIN POLLARD [facility]
--- OUTSIDE RECORDS SUMMARY | 2025-01-19 07:45 | XMS_ITS | Encounter Summary ---
Author Name [facility] [place] [facility] [place] Address [address] [place] [address] Care Team Providers Care Full Decator Operator Name Role Phone GREGORY HARTLEY Primary Care Provider Unavailabl MUKESH Lieberman Primary Care Provider Unavailab le Selected Encounter This section includes the information on record at [place] for the Encounter. Date/Time Encounter Type Encounter Description Reason Provider Source Mar 22, 2024 10:21 AM CASE MANAGEMENT ADMIN PAT ACTIVTIES (MASNONCT) MAGDIEL MOLINA Encounter Template Text not used by [place] Plan of Treatment: Future Appointments (+ 6 months) and Future Tests (+/- 45 days) The Plan of Treatment section includes future care activities for the patient from all [place] treatmentfacilities. This section includes future appointments and future orders which are active, pending or scheduled. Future Appointments This section includes appointments that were scheduled to occur 6 months from the date of the Encounter, up to a maximum of 20 appointments. The data comes from all [place] treatment facilities. Appointment Date/Time Appointment Type Appointme nt Facility Name Mar 25, 2024 02:00 PM AMBULATORY - NONE [facility] [place] [place] Mar 31, 2024 01:00 PM AMBULATORY - MEDICINE [facility] Apr 12, 2024 01:00 PM AMBULATORY - NONE [facility] [place] [place] Apr 19, 2024 03:00 PM AMBULATORY - MEDICINE [facility] [place] [place] Apr 21, 2024 08:30 AM AMBULATORY - NONE [facility] [place] [place] Apr 23, 2024 11:00 AM AMBULATORY - MEDICINE [facility] [place] [place] Apr 30, 2024 09:00 AM AMBULATORY - PSYCHIATRY [facility] Jul 08, 2024 03:30 PM AMBULATORY - MEDICINE [facility] Jul 19, 2024 10:00 AM AMBULATORY - PSYCHIATRY [facility] Jul 20, 2024 08:00 AM AMBULATORY - PSYCHIATRY [facility] Aug 03, 2024 07:30 AM AMBULATORY - REHAB MEDICIN E [facility] Aug 13, 2024 09:30 AM AMBULATORY - REHAB MEDICIN E [facility] Aug 16, 2024 01:30 PM AMBULATORY - MEDICINE [facility] Sep 07, 2024 01:30 PM AMBULATORY - PSYCHIATRY [facility] Sep 09, 2024 03:00 PM AMBULATORY - REHAB MEDICIN E [facility] Sep 10, 2024 12:00 PM AMBULATORY - NONE [facility] Active, Pending, and [...] of theEncounter. The data comes from all [place] treatment facilities. Test Date/Time Test Type Test Details Facility Name Mar 08, 2024 12:00 AM Laboratory - Chemi stry Order HEP C AB, TOTAL BLOOD in GOLD TOP TUBE SERUM SP ONCE [facility] Lab Results: +/- 30 days of the encounter This section includes the Chemistry and Hematology Lab Results on record with [place] for the patient. Radiology Reports and Pathology Reports are provided separately, in subsequent sections. Lab Results This section contains the Chemistry/Hematology Results that were resulted 30 days before or 30 daysafter the date of the Encounter. Date/Time Source Result Type Result - Unit Interpretation Reference Range Specimen Type Comment Mar 02, 2024 08:23 AM [facility] CBC + DIFF BLOOD Specimen Type: BLOOD No comment entered. Ordering Provider: GREGORY HARTLEY Report Released Date/Time: Feb 12, 2024 03:37 PM Reporting Lab: [facility] [place] [place] [address] [facility] [address] Performing Lab: [facility] [place] [place] [address] [facility] [address] HGB 16.2 g/dL 13.3-17.7 HCT 48.3 39.0-52.0 [...] 56.2 41.0-85.0 NEUTROPHILS # (AUTO) 3580 /uL [id number] MPV 11.5 fL 9.0-12.4 IG # 10 /uL 0-60 NRBC# 0 /uL 0-0 IG % 0.2 0.0-0.9 NRBC% 0.0 0.0-0.0 Mar 02, 2024 08:23 AM [facility] ANION/OSMOLAL GAP PANEL SERUM Specimen Type: SERUM Comment: eGFR CKD-EPI eGFR calculated using the 2020 LKZ-UPA-hkvfkewyhu equation; units of measure are mL/min/1.73m~2. eGFR [...] Feb 12, 2024 03:37 PM Reporting Lab: [address] [address] Performing Lab: [address] [address] UREA NITROGEN 14 mg/dL 5-25 GLUCOSE 95 mg/dL 70-110 SODIUM 137 mmol/L 136-146 POTASSIUM 4.3 mmol/L 3.5-5.3 CARBON DIOXIDE 29.6 mmol/L 24-31 CHLORIDE 101 mmol/L 95-110 EGFR 99 >=60 CREATININE idms 1.06 mg/dL 0.52-1.28 ANION GAP Serum 6.4 mmol/L 3-Mar 02, 2024 08:23 AM [facility] METABOLIC PANEL SERUM Specimen Type: SERUM Comment: eGFR CKD-EPI eGFR calculated using the 2020 FXB-OFT-fyfwdkbddf equation; units of measure are mL/min/1.73m~2. eGFR [...] Feb 12, 2024 03:37 PM Reporting Lab: [address] [address] Performing Lab: [facility] [place] [place] [address] [facility] [address] BILIRUBIN, TOTAL 0.6 mg/dL 0.2-1 ASPARTATE AMINOTRANSFERASE 20 U/L 13-35 ALKALINE PHOSPHATASE 51 U/L 33-94 ALANINE AMINOTRANSFERASE 26 U/L 7-45 CALCIUM 10.0 mg/dL 8.4-10.2 ALBUMIN 4.5 g/dL 3.2-4.8 Mar 02, 2024 08:23 AM [facility] LIPID PANEL SERUM Specimen Type: SERUM Comment: eGFR CKD-EPI eGFR calculated using the 2020 PKU-YOF-azvhwgxaxq equation; units of measure are mL/min/1.73m~2. eGFR [...] Feb 12, 2024 03:37 PM Reporting Lab: [facility] [place] [place] [address] [address] [address] Performing Lab: [facility] [place] [place] [address] [facility] [address] CHOLESTEROL 229 mg/dL H <=200 TRIGLYCERIDE 256 mg/dL H 40-160 HDL 56.5 mg/dL >=40 LDL CHOLESTEROL, CALC 121 mg/dL <130 CHOL/HDL RATIO 4.1 Mar 02, 2024 08:23 AM [facility] THYROID STIMULATING HORMONE (TSH3 ULTRA) SERUM Specimen Type: SERUM No comment entered. Ordering Provider: GREGORY HARTLEY Report Released Date/Time: Feb 12, 2024 03:37 PM Reporting Lab: [place] [id number] [facility] [address] Performing Lab: [address] [address] THYROID STIMULATING HORMONE (TSH3 ULTRA) 1.059 u [IU]/mL 0.55-4.78 Mar 02, 2024 08:23 AM [facility] URINALYSIS ONLY URINE Specimen Type: URINE No comment entered. Ordering Provider: GREGORY HARTLEY Report Released Date/Time: Feb 12, 2024 03:37 PM Reporting Lab: [address] [address] Performing Lab: [address] [address] URINE SPECIFIC GRAVITY 1.023 1.001-1.0 29 URINE [...] and tobacco- related health factors from the [place] facility where the Encounter took place. Current Smoking Status This section includes the most current smoking, or tobacco-related health factor, from the [place] facility where the Encounter took place. Date/Time Current Smoking Status Comment Gómez butler Mar 03, 2024 02:28 PM VA-TOBACCO NEVER USED [facility] [place] [place] Encounter Notes: All associated encounter notes This section contains the clinical notes associated to the Encounter. Date/Time Encounter Note(s) Provider Source Mar 22, 2024 10:21 AM ADMINISTRATIVE NOT E: LOCAL TITLE: PCMM TRAVELING COORDINATION NOTE STANDARD TITLE: ADMINISTRATIVE NOTE DATE OF NOTE: MAR 22, 2024@10:21 ENTRY DATE: MAR 22, 2024@10:21:31 AUTHOR: MAGDIEL MOLINA EXP COSIGNER: URGENCY: STATUS: COMPLETED PCMM ALERT NOTIFICATIONS UPDATE: Chart reviewed for relocation verification. residential & mailing address reflect [facility] area. established care on 03/08/24 w/ KRISTIN- PACT TEAM 1. Actionable alert for permanent relocation APPROVED at this time in PCMM Web. /es/ MAGDIEL MOLINA MA, BSN, RN PCMM/TVC/OUTPATIENT BROOM BUILDER Signed: 03/22/2024 10:23 MAGDIEL MOLINA [facility]
--- OUTSIDE RECORDS SUMMARY | 2025-01-19 07:46 | XMS_ITS | Encounter Summary ---
Author Name [facility] [place] [facility] [place] Organization [facility] [place] Address [address] [place] [address] Care Team Providers Care Firepot Operator And Tender Name Role Phone GREGORY HARTLEY Primary Care Provider Unavailabl MUKSEH Lieberman Primary Care Provider Unavailab le Selected Encounter This section includes the information on record at [place] for the Encounter. Date/Time Encounter Type Encounter Description Reason Provider Source November 26, 2024 09:30 AM PSYTX W PT 30 [facility]UTES [facility] - [facility] ICD-10-CM F90.9 Attention-deficit hyperactivity disorder, unspecified type BERNY NESBITT Dyana Encounter Template Text not used by [place] Assessments - Encounter Diagnoses This section includes the primary and secondary diagnoses documented for the Encounter. Date/Time Primary/Secondary Diagnosis Diagnosis Name Provider Source November 28, 2024 09:44 PM PRIMARY Attention-deficit hyperactivity disorder, unspecified type JCAMPARAMBI BERNY Avery [facility] November 28, 2024 09:44 PM SECONDARY Generalized anxiety disorder BERNY LÓPEZ [facility] November 28, 2024 09:44 PM SECONDARY Panic disorder [episodic paroxysmal anxiety] BERNY LÓPEZ [facility] Plan of Treatment: Future Appointments (+ 6 months) and Future Tests (+/- 45 days) The Plan of Treatment section includes future care activities for the patient from all [place] [facility] This section includes future appointments and future orders which are active, pending or scheduled. Future Appointments This section includes appointments that were scheduled to occur 6 months from the date of the Encounter, up to a maximum of 20 appointments. The data comes from all [place] treatment facilities. Appointment Date/Time Appointment Type Appointme nt Facility Name Mar 17, 2025 10:00 AM AMBULATORY - PSYCHIATRY [facility] Social History: Smoking Status (Most current) and Tobacco Use (All prior to encounter date) This section includes the most current, and the historical, smoking and tobacco- related health factors from the [place] facility where the Encounter took place. Current Smoking Status This section includes the most current smoking, or tobacco-related health factor, from the [place] facility where the Encounter took place. Date/Time Current Smoking Status Comment Facil ity May 30, 2022 01:30 PM VA-TOBACCO FORMER USER [facility] Tobacco Use History This section includes a history of the smoking, or tobacco-related health factors, that were collected on or before the date of the Encounter. The data comes from the [place] facility where the Encounter took place. Date/Time Smoking Status/Tobacco Use Comment F acility May 30, 2022 01:30 PM VA-TOBACCO QUIT 1 TO < 5 YRS [facility] Aug 20, 2019 09:00 AM VA-TOBACCO USE 1 TO < 5 YEARS [facility] Aug 20, 2019 09:00 AM VA-TOBACCO USE ADVICE [facility] Aug 20, 2019 09:00 AM VA-TOBACCO USE OPTHALMIC TECH NO [facility] Aug 20, 2019 09:00 AM VA-TOBACCO USE MED NO [facility] Aug 20, 2019 09:00 AM VA-TOBACCO USE WI 30 MIN OF WAKEUP [facility] Aug 20, 2019 09:00 AM VA-TOBACCO USER EVERY DAY [facility] Encounter Notes: All associated encounter notes This section contains the clinical notes associated to the Encounter. Date/Time Encounter Note(s) Provider Source November 26, 2024 09:42 AM PSYCHIATRY NOTE: LOCAL TITLE: PSYCHIATRY [facility] STANDARD TITLE: PSYCHIATRY NOTE DATE OF NOTE: NOVEMBER 26, 2024@09:42 ENTRY DATE: NOVEMBER 26, 2024@09:42:28 AUTHOR: PADMINI BRUNSON COSIGNER: URGENCY: STATUS: COMPLETED PSYCHIATRY PROGRESS NOTE NOVEMBER 26, 2024 Name: REVA WISE Age: 29 Race: WHITE Sex: MALE Service connection: Service Connected: 50% Rated Disabilities: LIMITED FLEXION OF KNEE (10% SC) LIMITED MOTION OF ANKLE (20% SC) LIMITED FLEXION OF KNEE (10% SC) TINNITUS (10% SC) LUMBOSACRAL OR CERVICAL STRAIN (10% SC) Consent: [facility] verbally consents to a clinical video telehealth follow-up appointment. Address: [address] [place] [address] Phone number: Survey: patient alone Lock: The virtual conference room was locked. Laterality: if needed was confirmed during the visit. EMERGENCY PLAN In the event of an emergency, the [place] or family will call emergency services, if capable. Teleprovider will remain in the virtual medical room until emergency response arrives and handoff to emergency services is complete. If is unable to make emergency call, Teleprovider is to call the national E911 service at [phone] and ask to be connected to emergency services for the 's location. Crisis Hotline: 706.899.3872 [employer] ([employer]): [phone] or [phone] ALLERGIES: Patient has answered NKA --------- MEDICATIONS: Active Outpatient Medications (including Supplies): Active Outpatient Medications Status 1) ATOMOXETINE 10MG CAP TAKE ONE CAPSULE BY MOUTH EVERY MORNING ACTIVE FOR 15 DAYS, THEN TAKE TWO CAPSULES EVERY MORNING Indication: FOR ADHD 2) GABAPENTIN 100MG CAP TAKE ONE CAPSULE BY MOUTH NIGHTLY ACTIVE Indication: FOR NERVE PAIN 3) LIDOCAINE 5% PATCH APPLY 1 PATCH TO SKIN SITE ONCE A DAY ACTIVE APPLY PATCH AND PRESS FIRMLY FOR 10-15 SECONDS. KEEP ON FOR 12 HOURS THEN REMOVE PATCH FOR 12 HOURS. Indication: FOR LOCAL ANESTHESIA No medications found. Reviewed, discussed and updated the current medication list with the [place]. 1) Tobacco use 2) Chronic pain syndrome 3) Low back pain 4) Bilateral knee pain 5) Pain of left ankle joint 6) Tinnitus 7) Eczema 8) Sinusitis 9) Cough 10) High risk sexual behavior 11) Panic attack 12) Murmur 13) Carotid bruit 14) Depressive disorder 15) Divorce proceedings pending 16) Snoring 17) Obesity 18) Anxiety 19) Vitamin D Deficiency ([facility] [id number]) 20) Hyperlipidemia 21) Obstructive sleep apnea 22) Cervicalgia 23) Pain of bilateral shoulder regions 24) Lumbago Chief Complaint: Medication may have helped a little, but I still have anxiety HPI: --- REVA WISE ROQUE is a 29 year old WHITE MALE presenting for psychiatric follow up appointment. BRIEF SUMMARY: was referred from the [facility] clinic psychiatrist for further evaluation of ADHD. Had been seen in the clinic since 2021 and had been back to [place] for a brief period of 2.5 months. Had an appointment yesterday since returning and the following medication changes were made: self discontinued the Paroxetine, started on Bupropion 12hr 100mg daily. First seen by this provider:07/20/2024 as an initial consult C-SSRS:07/20/2024 Patient was last seen on: 09/07/2024 Diagnosis: ADHD unspecified, most likely combined type Panic disorder Generalized anxiety disorder Recommendations:He continues to struggle with focus, being very forgetful and this is affecting his work and his home life.We agreed to try the Atomoxetine to help with his symptoms as he did not tolerate the Bupropion. -Atomoxetine: start taking 10mg daily 15 days and then increase to 20mg daily, to send us an update in 1 month. -Self discontinued the Bupropion due to side effects. -Started [employer] therapy with the speech therapist INTERVAL HISTORY: Today patient reports that the medication might have helped a little, like tightened him to things, but was still stuttering, forgetting, and still not where he needs to be. He might feel a little more anxious and a little constipated since he started the medication. Does feel a little more drowsy, and not getting enough time to sleep. He works 13hrs days and having a new born baby does not help. He is not taking the Gabapentin as it made him too drowsy as he had a drive a lot for his work. Also has a lot of pain related to neuropathy. As he works very hard and long hours, he hardly gets time to take care of his health. Sleep: Does not get enough time to sleep Medication side effects: Denies any PAST MEDICATION HISTORY: *Paroxetine: caused diarrhea and sexual side effects *Bupropion 12 hr 100mg daily: caused brain fog, could not concentrate and so stopped it on his own after 4 weeks SOCIAL HISTORY: but from his current . In another relationship, just had his first child with his current girlfriend. 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 Brought up with his grandparents. Has [...] Psychomotor: no psychomotor agitation or retardation Mood: My anxiety has been bad Affect: Appears mildly anxious Thought Process: logical, linear, goal-directed [...] 15:47 B12: B12 507 pg/mL 10/14/2023 15:47 Vitamin D:VITAMIN D, 25-HYDROXY 15.9 L ng/mL 10/14/2023 15:47 Valproate: No data available for: VALPROIC ACID (STL-MA) Urinalysis URINE COLOR Light-Yellow 03/14/2023 13:21 APPEARANCE Clear 03/14/2023 13:21 U.PH 7.0 03/14/2023 13:21 U.BILIRUBIN Negative mg/dL 03/14/2023 13:21 U.NITRITE Negative mg/dL 03/14/2023 13:21 DIAGNOSIS: ADHD unspecified, most likely combined type Panic disorder Generalized anxiety disorder ASSESSMENT/PLAN: Mr. Wise is a 29 yr old male , , , in a new relationship now, employed, recently had a baby, with a history of depression and anxiety was seen today for follow up. He would like to try a higher dose of the atomoxetine as he does notice mild benefit with the current dose and would also like to try medication to help with his anxiety. -Atomoxetine: Increase to 30 mg daily -Buspirone: Start taking 5 mg 3 times a day for anxiety -Currently not taking the gabapentin, prescribed by his primary care for nerve pain We discussed alternatives to treatment, including no treatment, as well as risks, benefits, side effects. The patient understood and consented to treatment provided. Patient aware to call clinic or Emergency Room as appropriate if symptoms get worse or if patient experiences side effects from medications. Time spent: 30 minutes Spent about 16 minutes in supportive therapy SAFETY RISK ASSESSMENT: Risk factors: male, h/o depression, relationship issues, Protective factors: denies any suicidal thoughts or previous attempts, motivated to get better, father to a , in a relationship, support from partner, future oriented Acute Risk: low Chronic risk: Low [facility] is currently stable for outpatient care. RTC: in 3 months as [facility] INSTRUCTIONS GIVEN TO PATIENT/FAMILY: * Report medication side effects promptly * No alcohol/illicit drug use with medication * Needs to be cautious with driving/use of machinery * Avoid night-time driving * Follow up with Primary Care Provider * If symptoms get worse, call clinic or Emergency Room as appropriate /naga/ BERNY BRUNSON Staff Psychiatrist, [facility] Signed: 11/28/2024 21:47 PADMINI BRUNSON [facility]
--- OUTSIDE RECORDS SUMMARY | 2025-01-19 07:46 | XMS_ITS | Encounter Summary ---
Author Name [facility] [place] [facility] [place] Organization [facility] [place] Address [address] [place] [address] Care Team Providers Care Weekend Receptionist Name Role Phone GREGORY HARTLEY Primary Care Provider Unavailabl MUKESH Lieberman Primary Care Provider Unavailab le Selected Encounter This section includes the information on record at [place] for the Encounter. Date/Time Encounter Type Encounter Description Reason Provider Source Apr 30, 2024 09:00 AM OFFICE O/P EST MOD 30 MIN [facility] INDIV ICD-10-CM F32.A Depression, unspecified [facility] Encounter Template Text not used by [place] Assessments - Encounter Diagnoses This section includes the primary and secondary diagnoses documented for the Encounter. Date/Time Primary/Secondary Diagnosis Diagnosis Name Provider Source Apr 30, 2024 10:55 AM PRIMARY Depression, unspecified [facility] Plan of Treatment: Future Appointments (+ 6 [...] Appointment Type Appointme nt Facility Name Jul 08, 2024 03:30 PM AMBULATORY - MEDICINE [facility] Jul 19, 2024 10:00 AM AMBULATORY - PSYCHIATRY [facility] Jul 20, 2024 08:00 AM AMBULATORY - PSYCHIATRY [facility] Aug 03, 2024 07:30 AM AMBULATORY - REHAB MEDICIN E [facility] Aug 13, 2024 09:30 AM AMBULATORY - REHAB MEDICIN E [facility] Aug 16, 2024 01:30 PM AMBULATORY - MEDICINE [facility] Sep 07, 2024 01:30 PM AMBULATORY - PSYCHIATRY [facility] Sep 09, 2024 03:00 PM AMBULATORY - REHAB MEDICIN E [facility] Sep 10, 2024 12:00 PM AMBULATORY - NONE [facility]
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
--- OUTSIDE RECORDS SUMMARY | 2025-01-19 07:46 | XMS_ITS | Encounter Summary ---
Author Name [facility] [place] Organization [facility] [place] Address [address] [place] [address] Care Team Providers Care Gold Marker Name Role Phone GREGORY HARTLEY Primary Care Provider Unavailabl MUKESH Lieberman Primary Care Provider Unavailab le Selected Encounter This section includes the information on record at [place] for the Encounter. Date/Time Encounter Type Encounter Description Reason Pro vider Source Apr 21, 2024 08:30 AM Outpatient Encounter ADMIN PAT ACTIVTIES (MASNONCT) IHE Encounter Template Text not used by [place] Plan of Treatment: Future Appointments (+ 6 months) and Future Tests (+/- 45 days) The Plan of Treatment section includes future care activities for the patient from all [place] treatmentfacilities. This section includes future appointments and future orders which are active, pending or scheduled. Future Appointments This section includes appointments that were scheduled to occur 6 months from the date of the Encounter, up to a maximum of 20 appointments. The data comes from all [place] treatment facilities. Appointment Date/Time Appointment Type Appointme nt Facility Name Apr 23, 2024 11:00 AM AMBULATORY - MEDICINE [facility] Apr 30, 2024 09:00 AM [facility] Jul 08, 2024 03:30 PM AMBULATORY - [...] 03:00 PM AMBULATORY - REHAB MEDICIN [facility] Sep 10, 2024 12:00 PM AMBULATORY - NONE [facility] Active, Pending, and Scheduled Orders This section includes a listing of several types of active, pending, and scheduled orders, including clinic medications orders, diagnostic test orders, procedure orders and consult orders; where the start date of the order is 45 days before the date of the Encounter or 45 days after the date of theEncounter. The data comes from all [place] treatment facilities. Test Date/Time Test Type Test Details Facility Name Mar 08, 2024 12:00 AM Laboratory - Chemi stry Order HEP C AB, TOTAL BLOOD in GOLD TOP TUBE SERUM SP ONCE [facility] Social History: Smoking Status (Most current) and Tobacco Use (All prior to encounter date) This section includes the most current, and the historical, smoking and tobacco- related health factors from the [place] facility where the Encounter took place. Current Smoking Status This section includes the most current smoking, or tobacco-related health factor, from the [place] facility where the Encounter took place. Date/Time Current Smoking Status Comment Gómez butler Mar 03, 2024 02:28 PM VA-TOBACCO NEVER USED [facility] Encounter Notes: All associated encounter notes This section contains the clinical notes associated to the Encounter. Date/Time Encounter Note(s) Provider Source Apr 21, 2024 09:19 AM NO SHOW NOTE: LOCAL TITLE: NO SHOW CLINIC NOTE STANDARD TITLE: NO SHOW NOTE DATE OF NOTE: APR 21, 2024@09:19 ENTRY DATE: APR 21, 2024@09:19:35 AUTHOR: JOSE REILLY EXP COSIGNER: URGENCY: STATUS: COMPLETED Patient was a no-show in this clinic (specify): [facility] NUTRITION Pt did not show to [facility] appt. Metal Crafts Teacher waited in the online waiting room for 15 mins. Alerting MSA to katina [place] as a no-show. Consult will be DC'd as [place] has no-showed twice. /naga/ JOSE REILLY Clinical Dietitian Signed: 04/21/2024 09:[address] [facility]
--- OUTSIDE RECORDS SUMMARY | 2025-01-19 07:46 | XMS_ITS | Encounter Summary ---
Author Name [facility] [place] Organization [facility] [place] Address [address] [place] [address] Care Team Providers Care Cryogenics Engineer Name Role Phone GREGORY HARTLEY Primary Care Provider Unavailabl MUKESH Lieberman Primary Care Provider Unavailab le Selected Encounter This section includes the information on record at [place] for the Encounter. Date/Time Encounter Type Encounter Description Reason Pro vider Source Apr 12, 2024 01:00 PM Outpatient Encounter ADMIN PAT ACTIVTIES (MASNONCT) I[facility] Encounter Template Text not used by [place] Plan of Treatment: Future Appointments (+ 6 months) and Future Tests (+/- 45 days) The Plan of Treatment section includes future care activities for the patient from all [place] treatmentfacilities. This section includes future appointments and future orders which are active, pending or scheduled. Future Appointments This section includes appointments that were scheduled to occur 6 months from the date of the Encounter, up to a maximum of 20 appointments. The data comes from all [place] treatment facilities. Appointment Date/Time Appointment Type Appointme nt Facility Name Apr 19, 2024 03:00 PM AMBULATORY - MEDICINE [facility] Apr 21, 2024 08:30 AM AMBULATORY - NONE [facility] Apr 23, 2024 11:00 AM AMBULATORY - MEDICINE [facility] Apr 30, 2024 09:00 AM AMBULATORY - PSYCHIATRY [facility] Jul 08, 2024 03:30 PM AMBULATORY - MEDICINE [facility] Jul 19, 2024 10:00 AM AMBULATORY - PSYCHIATRY [facility] Jul 20, 2024 08:00 AM AMBULATORY - PSYCHIATRY [facility] Aug 03, 2024 07:30 AM AMBULATORY - REHAB MEDICIN E [facility] Aug 13, 2024 09:30 AM AMBULATORY - REHAB MEDICIN [facility] Aug 16, 2024 01:30 PM AMBULATORY - MEDICINE [facility] Sep 07, 2024 01:30 PM AMBULATORY - PSYCHIATRY [facility] Sep 09, 2024 03:00 PM AMBULATORY - REHAB MEDICIN E [facility] Sep 10, 2024 12:00 PM AMBULATORY - NONE [facility] Active, Pending, and Scheduled Orders This section includes a listing of several types of active, pending, and scheduled orders, including clinic medications orders, diagnostic test orders, procedure orders and consult orders; where the start date of the order is 45 days before the date of the Encounter or 45 days after the date of theEncounter. The data comes from all [place] treatment facilities. Test Date/Time Test Type Test Details Facility Name Mar 08, 2024 12:00 AM Laboratory - Chemi stry Order HEP C AB, TOTAL BLOOD in GOLD TOP TUBE SERUM SP ONCE [facility] Social History: Smoking Status (Most current) and Tobacco Use (All prior to encounter date) This section includes the most current, and the historical, smoking and tobacco- related health factors from the [place] facility where the Encounter took place. Current Smoking Status This section includes the most current smoking, or tobacco-related health factor, from the [place] facility where the Encounter took place. Date/Time Current Smoking Status Comment Gómez butler Mar 03, 2024 02:28 PM VA-TOBACCO NEVER USED [facility] Encounter Notes: All associated encounter notes This section contains the clinical notes associated to the Encounter. Date/Time Encounter Note(s) Provider Source Apr 12, 2024 01:19 PM NO SHOW NOTE: LOCAL TITLE: NO SHOW CLINIC NOTE STANDARD TITLE: NO SHOW NOTE DATE OF NOTE: APR 12, 2024@13:19 ENTRY DATE: APR 12, 2024@13:19:15 AUTHOR: TOMMIE,JOSE M EXP COSIGNER: URGENCY: STATUS: COMPLETED Pt did not show to scheduled appt for [facility] NUTR. This physician underwriter waited online for 15 mins, then called pt. Phone kept ringing, no VM available. Notifying MSA to katina [place] as a no-show /es/ JOSE REILLY Clinical Dietitian Signed: 04/12/2024 13:21 JOSE REILLY [facility]
--- OUTSIDE RECORDS SUMMARY | 2025-01-19 07:46 | XMS_ITS | Encounter Summary ---
Author Name [facility] [place] [facility] [facility] [place] Address [address] [place] [address] Care Team Providers Care Cyber Incident Handler Name Role Phone GREGORY HARTLEY Primary Care Provider Unavailabl MUKESH Lieberman Primary Care Provider Unavailab le Selected Encounter This section includes the information on record at [place] for the Encounter. Date/Time Encounter Type Encounter Description Reason Provider Source Aug 13, 2024 09:30 AM SPEECH SOUND LANG COMPREHEN SPEECH-LANGUAGE PATHOLOGY ICD-10-CM R41.841 Cognitive communication deficit BROOKLYNN SWEET Dyana Encounter Template Text not used by [place] Assessments - Encounter Diagnoses This section includes the primary and secondary diagnoses documented for the Encounter. Date/Time Primary/Secondary Diagnosis Diagnosis Name Provider Source Aug 13, 2024 10:10 AM PRIMARY Cognitive communication deficit BROOKLYNN SWEET [facility] Aug 13, 2024 10:10 AM SECONDARY Attention and concentration deficit BROOKLYNN SWEET [facility] Plan of Treatment: Future Appointments (+ [...] Appointment Type Appointme nt Facility Name Aug 16, 2024 01:30 PM AMBULATORY - MEDICINE [facility] Sep 07, 2024 01:30 PM AMBULATORY - PSYCHIATRY [facility] Sep 09, 2024 03:00 PM AMBULATORY - REHAB MEDICIN E [facility] Sep 10, 2024 12:00 PM AMBULATORY - NONE [facility] November 26, 2024 09:30 AM AMBULATORY - PSYCHIATRY [facility] Social History: Smoking Status (Most current) [...] Date/Time Current Smoking Status Comment Gómez butler May 30, 2022 01:30 PM VA-TOBACCO FORMER USER [facility] Tobacco Use History This section includes a history of the smoking, or tobacco-related health factors, that were collected on or before the date of the Encounter. The data comes from the [place] facility where the Encounter took place. Date/Time Smoking Status/Tobacco Use Comment F tani May 30, 2022 01:30 PM VA-TOBACCO QUIT 1 TO < 5 YRS [facility] Aug 20, 2019 09:00 AM VA-TOBACCO USE 1 TO < 5 YEARS [facility] Aug 20, 2019 09:00 AM VA-TOBACCO USE ADVICE [facility] Aug 20, 2019 09:00 AM VA-TOBACCO USE FRANCHISE CONSULTANT NO [facility] Aug 20, 2019 09:00 AM VA-TOBACCO USE MED NO [facility] Aug 20, 2019 09:00 AM VA-TOBACCO USE WI 30 MIN OF WAKEUP [facility] Aug 20, 2019 09:00 AM VA-TOBACCO USER EVERY DAY [facility] Radiology Reports: +/- 30 days of [...] the Encounter. The data comes from all [place] treatment facilities. Date/Time Radiology Report Provider Source Sep 10, 2024 12:54 PM MRI SPINE LUMBAR W /O CONT: REVA WISE DUANEKeysha [id number] -[id number] M Exm Date: SEP 10, 2024@12:54 Req Phys: MUKESH JIMÉNEZ Loc: [facility] PA[facility] E4 PCP (Req'g Loc) Img Loc: [facility] Service: [address] [address] (Case [id number] COMPLETE) MRI SPINE LUMBAR W/O CONT (MRI Detailed) CPT:78724 Reason for Study: low back pain w/ [...] 10, 2024 Date Verified: SEP 10, 2024 Home Theater Experience Expert E-Sig:/ES/HAROON ROJAS Report: MRI SPINE LUMBAR W/O CONT [id number] DATE: 09/10/2024 3:03 PM HISTORY: low back [...] Primary Interpreting Staff: HAROON ROJAS, Diagnostic Radiologist (Home Theater Experience Expert) /[facility] Encounter Notes: All associated encounter notes This section contains the clinical notes associated to the Encounter. Date/Time Encounter Note(s) Provider Source Aug 13, 2024 09:36 AM SPEECH PATHOLOGY C ONSULT: LOCAL TITLE: SPEECH CONSULT ST STANDARD TITLE: SPEECH PATHOLOGY CONSULT DATE OF NOTE: AUG 13, 2024@09:36 ENTRY DATE: AUG 13, 2024@09:36:50 AUTHOR: BROOKLYNN SWEET COSIGNER: BERNY BRUNSON URGENCY: STATUS: COMPLETED SPEECH PATHOLOGY INITIAL EVALUATION AND TREATMENT PLAN-COGNITION Visit conducted by clinical video telehealth. Exam camera used by provider. Patient verbally consented to visit via telehealth. Emergency number confirmed. Yes. Patient confirms that he is in a private and safe location for visit. Backup communication equipment (e.g. phone or other internet capable device) is functioning. NAME: REVA WISE DATE: 08/13/24 09:30 LENGTH OF SESSION: 30 mins PCP: GLADYS JOSEPH PER CONSULT REQUEST REFERRING PROVIDER: BENRY BRUNSON REASON FOR REFERRAL: concentration and attention PROVISIONAL DX: Attention and Concentration Deficit CO-SIGNER: BERNY BRUNSON DS - Disabilities Eligibility: SERVICE CONNECTED 50% to 100% VERIFIED Total S/C %: 50 LIMITED FLEXION OF KNEE 10% S/C LIMITED FLEXION OF KNEE 10% S/C LIMITED MOTION OF ANKLE 20% S/C LUMBOSACRAL OR CERVICAL STRAIN 10% S/C TINNITUS 10% S/C No data available for: Suicide Risk Screen PERTINENT HISTORY: 1) Tobacco use 2) Chronic pain syndrome 3) Low back pain 4) Bilateral knee pain 5) Pain of left ankle joint 6) Tinnitus 7) Eczema 8) Sinusitis 9) Cough 10) High risk sexual behavior 11) Panic attack 12) Murmur 13) Carotid bruit 14) Depressive disorder 15) Divorce proceedings pending 16) Snoring 17) Obesity 18) Anxiety 19) Vitamin D Deficiency ([facility] [id number]) 20) Hyperlipidemia 21) Obstructive sleep apnea 22) Cervicalgia 23) Pain of bilateral shoulder regions 24) Lumbago PRIOR LEVEL OF INDEPENDENCE IN COMMUNICATION/COGNITION/HE ARING/SWALLOWING: Independent SUBJECTIVE: Prefers to be called Ray. Been on Wellbutrin for 3.5 weeks, said he has not been feeling any benefit yet. DEPOSITION REPORTER provided common knowledge regarding this type of medication, stating it may take more than 4 weeks to feel benefit. DEPOSITION REPORTER did say to contact prescribing physician if by week 6-7 [address], as anything further than common knowledge is NOT DEPOSITION REPORTER scope of practice. Patient stated understanding. 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 He had ear bud in ear so co-worker could not hear DEPOSITION REPORTER. DEPOSITION REPORTER verbally asked if it were ok to continue with session, Vet stated yea it's ok. We're pretty close. DEPOSITION REPORTER still modified interview/evaluation drastically. MOBILITY: Without assist TRANSPORTATION: NA. 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 No PERSONAL HX TBI: No PERSONAL HX STROKE: No FAMILY HX OF DEMENTIA: No FAMILY HX OF ALZHEIMER'S: No FAMILY HX MENTAL HEALTH: Unknown CURRENT COMPLAINTS: Biggest issue is trying to concentrate on the simplest of things. I get distracted way to easy. Mentioned forgetting to do favors for his , difficulty at work, misplacing items, and getting frustrated with the build up of all these small things adding up. EVALUATION: SPEECH: Intact - Rate of Speech: WFL - Intelligibility: 100% - Vocal Volume: Good - Vocal Quality: Good LANGUAGE: Intact - Communication Level: Conversation VET PERSONAL RATING AND DESCRIPTION OF HIS/HER COGNITIVE SKILL: Very Poor Poor Average Good Very Good Attention: Very Poor Memory: Very Poor Organization: Poor Time Management: Poor Planning: Poor Adult ADHD Self-Report Scale (ASRS-v1.1) Symptom Checklist (Jase Mac MD., Horacio Cintron, PhD., Omid Guevara MD.) No score/diagnostic value calculated. Per the research it has been determined that the first 6 questions are most predictive of the disorder, and best used as a screen instrument Frequency rating: Never, Rarely, Sometimes, Often, Very Often PART A 1. How often do you have trouble wrapping up the final details of a project once the challenging parts have been done? ... OFTEN 2. How often do you have difficulty getting things in order when you have to do a task that requires organization? ... OFTEN 3. How often do you have problems remembering appointments or obligations? ... VERY OFTEN 4. When you have a task that requires a lot of thought, how often do you avoid or delay getting started? ... OFTEN 5. How often do you fidget or squirm with your hands or feet when you have to sit down for a long time? ... VERY OFTEN 6. How often do you feel overly active and compelled to do things, like you were driven by a motor? ... VERY OFTEN Vazquez box responses recorded in CAPS = 6/ (4 or more highly consistent w/ ADHD in adults) Neuro-QOL Cognitive Function None 5 A little 4 Somewhat 3 A lot 2 Cannot do 1 4 keeping track of time... 3 checking accuracy of financial documents... 2 reading and following complex instructions... 2 planning for and keeping appointments that are not part of your weekly routine... 2 managing your time to do most of your daily activities... 3 planning an activity several days in advance... 3 getting things organized... 2 remembering where things were placed or put away... 2 remembering a list of 4 or 5 errands without writing it down... 3 learning new tasks or instructions... Never 5 Rarely 4 Sometime 3 Often 2 Very often 1 1 I made simple mistakes more easily... 1 Words I wanted to use seemed to be on the tip of my tongue... 1 I had to read something several times to understand it... 1 I had trouble keeping track of what I was doing if I was interrupted... 1 I had difficulty doing more than one thing at a time... 1 I had trouble remembering whether I did things I was supposed to do, like taking a medicine or buying something I needed... 2 I had trouble remembering new information, like phone numbers or simple instructions... 1 I walked into a room and forgot what I meant to get or do there... 4 I had trouble remembering the name of a familiar person... 1 I had trouble thinking clearly... 1 I reacted slowly to things that were said or done... 1 I had trouble forming thoughts... 1 My thinking was slow... 2 I had to work really hard to pay attention or I would make a mistake... 1 I had trouble concentrating... 2 I had trouble getting started on very simple tasks... 2 I had trouble making decisions... 2 I had trouble planning out steps of a task... PROVIDER GENERAL OBSERVATIONS: - Mood: Good - Affect: Matched mood - Behavior: Cooperative - Appearance: Work attire - Interaction: Good DIAGNOSIS/SEVERITY: Subjective memory decline Positive ADHD screen IMPRESSIONS: Vet will likely benefit from ongoing skilled ST at this time to address cognitive concerns. PT PERSONAL GOALS: TBD. EDUCATION: DEPOSITION REPORTER provided skilled education regarding scope of practice, goals, and anticipated outcome(s). Vet stated understanding. PROGNOSIS: Good ACTIVITY LIMITATIONS: NA PARTICIPATION RESTRICTIONS: 3p ONLY availability BARRIERS TO TREATMENT/LEARNING: None Anticipated PLAN: RTC ESTIMATED LENGTH OF TREATMENT NEEDED: 4-6 visits, 30-60min sessions, over 2-4 months GOALS: Pharmacy Service Associate Goal: Improve cognition communication skills necessary to meet personal, social needs, and vocational needs with assistance/accommodations. Short Term Goal(s): TBD each session and added per Vet and DEPOSITION REPORTER collaborative discussion 1. RECOMMENDATIONS: None at this time /naga/ BROOKLYNN SWEET M.S., CCC-DEPOSITION REPORTER Signed: 08/13/2024 13:28 /naga/ BERNY BRUNSON Staff PsychiatristOMKAR [facility] Cosigned: 08/13/2024 13:46 [facility]
[2025-01-19 07:54] LABS: INR 0.9; Prothrombin Time 12.5 Seconds (11.1-14.7)
[2025-01-19 07:55] LABS: Partial Thromboplastin Time 25.1 Seconds (22.3-36.8)
[2025-01-19 07:57] LABS: Alanine Aminotransferase 47 U/L (6-50); Albumin Level 4.4 g/dL (3.5-5.1); Alkaline Phosphatase 47 U/L (38-126); Anion Gap 10 mmol/L (4-12); Aspartate Amino Transferase 41 U/L (17-59); Bilirubin,Total 0.5 mg/dL (0.2-1.3); Blood Urea Nitrogen 15 mg/dL (9-20); Calcium 9.4 mg/dL (8.4-10.2); Carbon Dioxide 26 mmol/L (22-30); Chloride 105 mmol/L (98-107); Estimated CRCL calculation 116 ml/min; Estimated Glomerular Filt Rate > 60; Glucose 111 mg/dL (65-110); Lipase 65 U/L (23-300); Potassium 3.8 mmol/L (3.4-5.0); Sodium 141 mmol/L (137-145); Total Protein 7.7 g/dL (6.3-8.2)
[2025-01-19 08:21] LABS: Troponin I < 0.012 ng/mL (0.000-0.034)
[2025-01-19 08:31] VITALS: BP 126/77; PULSE 65; RESP 20; O2SAT 100
[2025-01-19 09:34] VITALS: BP 140/82; PULSE 60; RESP 16; O2SAT 99
--- NOTE | 2025-01-19 10:02 | ECG_ITS ---
Test Date: 2025-01-19 10:10:37 Measurements Intervals [place] Rate: 57 P: 12 PA: 167 QRS: -33 QRSD: 110 T: -8 QT: 402 QTc: 392 Interpretive Statements SINUS BRADYCARDIA LEFT AXIS DEVIATION [QRS AXIS < -30] Compared to ECG 01/19/2025 07:27:45 Sinus rhythm no longer present Electronically Signed On 01-19-2025 14:39:19 CDT by Cory Campbell M.D.
[2025-01-19 10:42] LABS: Troponin I < 0.012 ng/mL (0.000-0.034)
[2025-01-19 10:49] VITALS: BP 113/58; PULSE 60; RESP 16; O2SAT 99
--- NOTE | 2025-01-19 11:03 | ED_ITS ---
HPI - General Adult General Chief complaint: Chest Pain Stated complaint: intermittent midsternal cp, dizzy, R shoulder pain Time Seen by Provider: 01/19/25 07:19 History of Present Illness HPI narrative: Patient is a 29-year-old male who presents ER with some right-sided chest pain. Just right of the sternum inferiorly. Has some radiation to the right shoulder. Worse with physical movement. 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 No known injury. Sudden onset this morning. No fevers or chills or sweats. No nausea. Not associated with eating or drinking. No acid reflux. No difficulty breathing. No pain with deep breath. No hemoptysis. Related Data Allergies Allergy/AdvReac Type Severity Reaction Status Date / Time No Known Allergies Allergy Verified 01/19/25 07:25 Review of Systems 2 Review of Systems: All systems reviewed & are unremarkable except as noted in HPI and below Constitutional: Constitutional: Reports no additional constitutional complaints ENT: Reports system reviewed and no additional complaints, except as documented Cardiovascular: Cardiovascular: Reports no additional cardiovascular complaints Respiratory: Respiratory: Reports no additional respiratory complaints PMFSH Past Medical History Medical History (Updated 01/19/25 @ 11:09 by David Lee MD) Healthy adult male Surgical History Surgical History (Updated 01/19/25 @ 11:09 by David Lee MD) No pertinent past surgical history Exam 2 Narrative: GENERAL: Well-appearing, well-nourished, and in no acute distress. HEAD: Normocephalic, atraumatic. ENT: Mucous membranes moist. CHEST: Clear to auscultation. No respiratory distress. HEART: Regular rate and rhythm. Normal peripheral pulses. ABDOMEN: Soft, nontender, nondistended. EXTREMITIES: Normal range of motion. No edema. SKIN: Warm, dry, no rash. NEURO: Alert and oriented x3. PSYCH: Normal mood and affect. Course Course Emergency Course: Patient resting comfortably. Informed of results. Pain improved after aspirin. Appropriate for discharge home. Vital Signs Vital signs: Vital Signs Temperature 97.8 F 01/19/25 07:21 Pulse Rate 73 01/19/25 07:21 Respiratory Rate 20 01/19/25 07:21 Blood Pressure 161/81 H 01/19/25 07:21 Pulse Oximetry 100 01/19/25 07:21 Oxygen Delivery Room Air 01/19/25 07:21 Temperature 97.8 F 01/19/25 07:21 Pulse Rate 60 01/19/25 10:49 Respiratory Rate 16 01/19/25 10:49 Blood Pressure 113/58 L 01/19/25 10:49 Pulse Oximetry 99 01/19/25 10:49 Oxygen Delivery Room Air 01/19/25 07:33 Medical Decision Making Vital Signs Vital Signs: Vital Signs Temperature 97.8 F 01/19/25 07:21 Pulse Rate 73 01/19/25 07:21 Respiratory Rate 20 01/19/25 07:21 Blood Pressure 161/81 H 01/19/25 07:21 Pulse Oximetry 100 01/19/25 07:21 Oxygen Delivery Room Air 01/19/25 07:21 Temperature 97.8 F 01/19/25 07:21 Pulse Rate 60 01/19/25 10:49 Respiratory Rate 16 01/19/25 10:49 Blood Pressure 113/58 L 01/19/25 10:49 Pulse Oximetry 99 01/19/25 10:49 Oxygen Delivery Room Air 01/19/25 07:33 Lab Data 01/19/25 07:35 01/19/25 07:35 Labs: Lab Results 01/19/25 01/19/25 Range/Units 07:35 10:13 WBC 5.5 (4.5-10.0) K/mm3 RBC 5.04 (4.6-6.20) M/mm3 Hgb 15.5 (14.0-18.0) g/dL Hct 45.3 (42.0-52.0) % MCV 89.9 (80-100) fl MCH 30.8 (26-34) pg MCHC 34.2 (32-36) g/dl RDW 12.2 (11.5-14.5) % Plt Count 301 (150-375) k/mm3 MPV 10.2 (7.4-10.4) fl Immature Gran % (Auto) 0.2 (0-0.5) % Neut % (Auto) 55.6 (45.5-73.1) % Lymph % (Auto) 34.6 (18.3-44.2) % [place] % (Auto) 7.0 (2.6-8.5) % Eos % (Auto) 1.5 (0-4.4) % Baso % (Auto) 1.1 (0.2-1.2) % Lymph # (Auto) 1.89 (0.9-3.2) K/mm3 [place] # (Auto) 0.4 (0.1-0.6) K/mm3 Eos # (Auto) 0.1 (0-0.3) K/mm3 Baso # (Auto) 0.1 (0.0-0.1) K/mm3 Abs Immat Gran (auto) 0.01 (0.00-0.031) K/mm3 Absolute Neuts (auto) 3.0 (1.3-6.7) K/mm3 Absolute Nucleated RBC 0.000 (0.0-0.012) K/mm3 Nucleated RBC % 0.0 (0.0-0.2) % PT 12.5 (11.1-14.7) Seconds INR 0.9 APTT 25.1 (22.3-36.8) Seconds Sodium 141 (137-145) mmol/L Potassium 3.8 (3.4-5.0) mmol/L Chloride 105 (98-107) mmol/L Carbon Dioxide 26 (22-30) mmol/L Anion Gap 10 (4-12) mmol/L BUN 15 (9-20) mg/dL Creatinine 0.91 (0.7-1.3) mg/dL Estim Creat Clear Calc 116 ml/min Estimated GFR > 60 (59 - ) Glucose 111 H (65-110) mg/dL Calcium 9.4 (8.4-10.2) mg/dL Total Bilirubin 0.5 (0.2-1.3) mg/dL AST 41 (17-59) U/L ALT 47 (6-50) U/L Alkaline Phosphatase 47 (38-126) U/L Troponin I < 0.012 < 0.012 (0.000-0.034) ng/mL Total Protein 7.7 (6.3-8.2) g/dL Albumin 4.4 (3.5-5.1) g/dL Lipase 65 (23-300) U/L Imaging Data Radiologist's impression: ITS Impressions Chest X-Ray 01/19/25 08:15 Impression: Normal chest. ECG Data EKG #1: ECG completion date: 01/19/25 ECG completion time: 07:27 EKG Interpretation: normal rate (65), non-specific ST changes, RBBB (Incomplete) and left axis Discharge Plan Discharge Clinical Impression: Atypical chest pain Patient Disposition: Home Condition: Stable Instructions: Chest Wall Pain (ED) Additional Instructions: Please return to the emergency department if you develop severe and persistent chest pain, difficulty breathing, dizziness, leg swelling or if you are coughing up blood as these can be signs of a medical emergency. Please call your doctor for a follow up appointment to determine the need for further testing. Patient Language: Tamazight Prescriptions: New cyclobenzaprine 10 mg tablet 10 mg PO TID PRN (Reason: muscle spasm) Qty: 14 0RF naproxen 375 mg tablet 375 mg PO BID Qty: 14 0RF Follow-up/Referrals: PHYSICIAN NOT ON STAFF,NONSTAFF [Primary Care Provider] - Singh Cuenca MD [Physician] - 1 Week Stand Alone Forms: Work/School Release IP Quality HEART score for chest pain patients History: slightly suspicious ECG: non specific repolarization disturbance/LBTB/PM Age: < or = to 45 years Risk factors: no risk factors known Troponin: < or = to 1x normal limit Heart score: 1
[2025-01-19 11:17] VITALS: BP 113/58; PULSE 67; RESP 21; O2SAT 99
== END 2025-01-19 11:21 | disposition home or self-care (01) ==
PROVIDERS: Emergency Provider Emergency Medicine
DX: R07.89 Other chest pain (principal)
CPT/HCPCS: 36415; 71046; 80053; 83690; 84484; 85025; 85610; 85730; 93005; 99284; A9270